=== PATIENT | female | born 1990 | race Caucasian/White ===

== ENCOUNTER 2024-01-31 22:26 | Inpatient (IN) ==
--- OUTSIDE RECORDS SUMMARY | 2024-01-31 22:31 | External Medical Summary | Summary of Care ---
Author Name Unknown Organization [facility] Address [address] [place] [address] Phone [phone] Care Team Providers Care Layer Out Name Role Phone Chuyita Villegas MD Primary Care Provid er Encounter Details Date Type Department Care Team ([facility] st Contact Info) Description 01/31/2024 Telephone Gynecology/Obstetrics [facility] [address] [place] [address] Rubia De La Cruz PA-C [address] [place] [address] Allergies No known active allergiesdocumented as of this encounter (statuses as of 01/31/2024) Medications LORazepam 0.5 MG Oral Tablet (Ativan)Indicati ons:GILMAR (generalized anxiety disorder),Modera te episode of recurrent major depressive disorder (HCC) Take 1 Tablet by mouth 3 times a day as needed for Anxiety. 15 Tablet 3 Active Additional Information Patient not taking.Reported on 01/16/2024 28-0.8 MG Oral Tablet Take by mouth. Active buPROPion HCl ER (XL) 150 MG Oral Tablet Extended Release 24 Hour (Wellbutrin XL)Indications:G AD (generalized anxiety disorder) Take 1 tablet by mouth every morning. 90 Tablet 1 4 Active Additional Information Patient not taking.Reported on 01/31/2024 FLUoxetine HCl 20 MG Oral Capsule (PROzac)Indicati ons:GILMAR (generalized anxiety disorder) Take 1 capsule by mouth once daily. 90 Capsule 1 4 Active Additional Information Patient taking differently: 40 mg, Reported on 01/31/2024 FLUoxetine HCl 10 MG Oral Capsule (PROzac)Indicati ons:GILMAR (generalized anxiety disorder),Modera te episode of recurrent major depressive disorder (HCC) Take 1 capsule by mouth once daily. Add to 20 mg capsule for 30 mg total daily dose. 90 Capsule 1 4 Active Additional Information Patient not taking.Reported on 01/16/2024 amLODIPine Besylate 5 MG Oral Tablet (Norvasc)Indicat ions:Polycystic kidney disease,HTN, goal below 130/80 Take 1 Tablet by mouth in the morning. 90 Tablet 1 4 Active Aspirin 81 MG Oral Capsule Take by mouth. Ac tive Triamcinolone Acetonide 0.1 % External Ointment (Aristocort)Chelly cations:Flexural eczema Apply topically to affected area twice daily. 15 g 4 4 Active Propranolol HCl ER 80 MG Oral Capsule Extended Release 24 Hour (Inderal LA)Indications:M aternal chronic hypertension in third trimester Take 1 Capsule by mouth in the morning. 90 Capsule 1 4 Active documented as of this encounter (statuses as of 01/31/2024) Active Problems Problem Noted Date Diagnosed Date GBS (group B Streptococcus c geo), +RV culture, currently 01/25/2024 Need for prophylactic vaccin ation and inoculation against respiratory syncytial virus (RSV) 12/26/2023 Overview (12/26/2023): Received RSV vaccine 12/26/2023 History of laminectomy 11/27/2023 Maternal chronic hypertension 07/19/2023 Overview (12/11/2023): Obtain baseline lab work ARIES (if not already done) with assessment of proteinuria (24-hour urine protein or lszbivc-rn-xpddjqxwpb ratio) and CBC, serum AST/ALT/creatinine. If patient has had hypertension for 10 years or more, obtain an EKG and eye exam (if not performed within the past year). Recommend initiation of aspirin (81mg) daily, from 13 weeks until delivery, to decrease the risk of superimposed preeclampsia. Daily home blood pressure monitoring, especially in the second half of the . It may be useful to have the patient validate their home device with their primary OB care provider's office. Patients with BP less than 140/90 maintained with antihypertensives should continue medication during . Initiate or adjust antihypertensive medication if BP is 140/90 or greater on at least two occasions at least 4 hours apart and refer patient back to Maternal- Medicine. Titrate medication to maintain blood pressure in a goal range 120-140/70-90. Maternal Medicine ultrasound for anatomy at 19-20 weeks. surveillance as follows: If being treated with anti-hypertensives: Maternal- Medicine ultrasound for growth every 4 weeks starting at 24-26 weeks surveillance weekly starting at 32 weeks gestation Delivery should be individualized based on blood pressure control and assessment of patient risk and is indicated as follows: For those with stable blood pressures not on anti-hypertensive medications: Between 38 0/7 and 39 6/7 weeks For those on anti-hypertensive medications: Between 37 0/7 and 39 6/7 weeks Currently stable on amlodipine 5 mg daily. Add 80 mg propranolol 12/11/23 with elevated BP - per nephrology Recommend bASA 81 mg beginning at 12-13 weeks if okay per Nephrology. BP Readings from Last 5 Encounters: 07/11/23 130/78 05/25/23 134/86 03/21/23 132/94 02/16/23 121/86 11/21/22 118/78 Baseline Preeclampsia Labs Lab Results Component Value Date/Time PLT 318 07/11/2023 11:33 AM CREATININE - [facility] 0.7 07/11/2023 11:33 AM AST - [facility] 14 07/11/2023 11:33 AM ALT - [facility] 11 07/11/2023 11:33 AM PROTEIN/ CREATININE RATIO, URINE - [facility] 200 (H) 07/11/2023 11:49 AM Assessment & Plan (01/31/2024 2:15 PM EST): BP Readings from Last 5 Encounters: 01/31/24 132/96 01/16/24 120/78 01/09/24 126/82 12/26/23 134/78 12/13/23 128/88 Please titrate medication to maintain goal BP < 140/90. Assessment & Plan (01/01/2024 9:36 AM EST): BP Readings from Last 5 Encounters: 12/26/23 134/78 12/13/23 128/88 12/11/23 136/98 11/27/23 134/88 11/06/23 126/84 Please titrate medication to maintain goal BP < 140/90. Assessment & Plan (12/06/2023 12:09 PM EDT): BP Readings from Last 5 Encounters: 11/27/23 134/88 11/06/23 126/84 10/09/23 132/80 09/07/23 134/82 08/08/23 124/78 Please titrate medication to maintain goal BP < 140/90. Assessment & Plan (11/07/2023 1:14 PM EDT): BP Readings from Last 5 Encounters: 11/06/23 126/84 10/09/23 132/80 09/07/23 134/82 08/08/23 124/78 07/11/23 130/78 Titrate medication to maintain goal BP < 140/90. Assessment & Plan (10/05/2023 9:15 AM EDT): I reviewed the ultrasound with her. The anatomy that was visualized appears unremarkable and the biometry is appropriate for the gestational age. The amniotic fluid volume is subjectively normal and the fetus is in the vertex presentation. Assessment & Plan (07/19/2023 2:35 PM EDT): Considerations: Women with chronic hypertension during are at significantly increased risk for morbidity. Signs and symptoms of superimposed pre-eclampsia were reviewed; instructed patient to contact primary OB care provider if these symptoms occur. Recommendations: Obtain baseline lab work ARIES (if not already done) with assessment of proteinuria (24-hour urine protein or pjmmarx-uo-bibwbfhrqh ratio) and CBC, serum AST/ALT/creatinine. If patient has had hypertension for 10 years or more, obtain an EKG and eye exam (if not performed within the past year). Recommend initiation of aspirin (81mg) daily, from 13 weeks until delivery, to decrease the risk of superimposed preeclampsia. Daily home blood pressure monitoring, especially in the second half of the . It may be useful to have the patient validate their home device with their primary OB care provider's office. Patients with BP less than 140/90 maintained with antihypertensives should continue medication during . Initiate or adjust antihypertensive medication if BP is 140/90 or greater on at least two occasions at least 4 hours apart and refer patient back to Maternal- Medicine. Titrate medication to maintain blood pressure in a goal range 120-140/70-90. Maternal Medicine ultrasound for anatomy at 19-20 weeks. surveillance as follows: If NOT being treated with anti-hypertensives: Maternal- Medicine ultrasound for growth between 28-30 weeks If being treated with anti-hypertensives: Maternal- Medicine ultrasound for growth every 4 weeks starting at 24-26 weeks surveillance weekly starting at 32 weeks gestation Delivery should be individualized based on blood pressure control and assessment of patient risk and is indicated as follows: For those with stable blood pressures not on anti-hypertensive medications: Between 38 0/7 and 39 6/7 weeks For those on anti-hypertensive medications: Between 37 0/7 and 39 6/7 weeks High-risk 07/19/2023 Rh negative status during 07/12/2023 Kidney disease in 07/11/2023 Overview (07/19/2023): Follows with Nephrology. Switched from losartan to amlodipine in February due to plans for . Kidney function stable. Patient had preconception counseling with [facility] licensed genetic counselor earlier this year. Declined additional genetic counseling at this time. Latest Reference Range & Units 02/16/23 14:56 07/11/23 11:33 Sodium 135 - 146 mmol/L 139 Potassium 3.5 - 5.1 mmol/L 4.0 Chloride 98 - 107 mmol/L 108 (H) CO2 22 - 32 mmol/L 25 BUN 6 - 20 mg/dL 19 11 Creatinine 0.5 - 1.0 mg/dL 0.9 0.7 Estimated Glomerular Filtration Rate >=60 mL/min >90 >90 Anion Gap 7 - 15 mmol/L 6 (L) Glucose 70 - 120 mg/dL 78 Calcium 8.4 - 10.2 mg/dL 8.6 Phosphorus 2.5 - 4.8 mg/dL 3.2 Protein 6.0 - 8.3 g/dL 6.2 Uric Acid 2.4 - 5.7 mg/dL 2.5 Assessment & Plan (07/19/2023 2:41 PM EDT): CONSIDERATIONS: Explained to patient that autosomal dominant polycystic kidney disease is the most frequent genetic renal disorder, affecting 1/400 to 02/999 persons. is generally uncomplicated when functional renal impairment is minimal and hypertension is absent. There is an increased incidence of hypertension in late and higher mortality compared with that in pregnancies of sisters unaffected by this autosomal dominant disease. Discussed that polycystic kidney disease is usually progressive in nature and prognosis worsens with worsening renal function. Reviewed that since this disease is autosomal dominant, there is a 50% chance that she disorder will be passed on to the baby, but that it is generally not seen until they reach adulthood. RECOMMENDATIONS: Recommend Maternal Medicine ultrasound for anatomy at 19-20 weeks and then for growth at 28-30 weeks gestation. Recommend obtaining baseline pre-eclamptic labwork (including a 24 hour urine protein and serum AST/ALT/creatinine) in early . Patient s primary OB provider can coordinate. Monitor closely for signs and symptoms of pre-eclampsia as there is an increased incidence for women with polycystic kidney disease. As brain aneurysm occurs more frequently for women with polycystic kidney disease, we recommend maternal MRI of head to evaluate for presence of aneurysms and, if present, then neurology consult for delivery recommendations. Patient s primary OB provider can coordinate. Anxiety during 07/11/2023 Overview (07/19/2023): Currently stable on Wellbutrin 150 mg daily and Prozac 30 mg daily. Reports depression only when anxiety is out of control; denies suicidal or homicidal ideation. Assessment & Plan (07/19/2023 2:09 PM EDT): ANXIETY AND DEPRESSION CONSIDERATIONS: Untreated maternal anxiety and depression may be associated with an increased risk of multiple poor obstetrical outcomes including miscarriages, low weight, and delivery. Women with a history of anxiety or depression are at risk for recurrence both during and/or the period. Studies of first-trimester SSRI exposure do not demonstrate consistent data to support an increased risk for structural malformations. Anti-anxiety or depression medications have been associated with transient effects (withdrawal syndrome). RECOMMENDATIONS: Mental illness can and should be treated during when the benefits of treatment outweigh potential risks. Referral to behavioral health services as clinically indicated. H/O laminectomy 07/11/2023 Overview (11/27/2023): Laminectomy in [place] in 2011. Will need anesthesia consult. 28 weeks, per anesthesia: Gail, Thank you for reaching out. I have reviewed patient Humberto's imaging of her [place] spine. The construct involves L4 to S1. There is the potential for Epidural placement above the construct at the level of L3/4 or 2/3. There is always the potential for difficulty with epidural placement given post surgical changes and scare formation. Thank you, Negro Assessment & Plan (07/19/2023 2:34 PM EDT): Recommend anesthesia consult in third trimester. Moderate episode of recurrent major depressive d isorder 05/25/2023 Polycystic kidney disease 01/13/2022 Flexural eczema 01/13/2022 Anxiety Medical marijuana use Overview (07/19/2023): Stopped with knowledge of . Assessment & Plan (07/19/2023 2:35 PM EDT): CONSIDERATIONS: Chemicals found in marijuana, such as tetrahydrocannabinol (THC), are distributed to the brain and fat and cross the placenta. THC also appears in breast milk. In utero exposure is associated with short and long-term morbidity. A positive screen result is reported to [facility]. RECOMMENDATIONS: Abstain from marijuana use in and while ; avoid secondhand exposure. Discontinue use of marijuana for medicinal purposes in favor of an alternative therapy for which there are better -specific safety data. Estimated Date of Delivery Comme nts Yes 02/19/2024 Based on last me nstrual period of 05/15/2023 (Exact Date) documented as of this encounter (statuses as of 01/31/2024) Resolved Problems Problem Noted Date Diagnosed Date Resolved Date Supervision of normal first , antepartum 07/11/2023 10/09/2023 documented as of this encounter (statuses as of 01/31/2024) Immunizations Name Administration Dates Next Due RSV Vac., Bivalent, Perfusion F, Pf,0.5 Ml (Abry svo) 12/26/2023 Seasonal Influenza, PF, 6 M & above, IM , (FluLaval or Fluzone) 01/13/2022 Seasonal Influenza, Trivalent, (IIV3), PF, (Fluz one) 11/06/2023 TDAP (age 10 and older)(Boostrix) 11/25/2018, TDAP, Age 7 and older, IM (Adacel) 11/27/2023 documented as of this encounter Social History Tobacco Use Types Packs/Day Years Used Date Smoking Tobacco: Never Smokeless Tobacco: Never Alcohol Use Standard Drinks/Week Comments Not Currently 4 (1 standard drink = 0.6 oz pur e alcohol) rare Hunger Vital Sign Answer Date Recorded Within the past 12 months, y ou worried that your food would run out before you got the money to buy more. Never true 09/25/19 24 Within the past 12 months, t he food you bought just didn't last and you didn't have money to get more. Never true 09/25/2023 [place] Depression Scale Answer Date Recorded [place] Depression Scale Total 5 07/11/2023 The thought of harming myself has occurred to me . Never 07/11/2023 Childcare Answer Date Recorded Do you feel overwhelmed with taking care of a child, family member or friend? No 09/25/2023 Does your family need help f inding childcare? (Household - for ages 0-17 years) Not on file 09/25/2023 Clothing Answer Date Recorded Have you been unable to get clothing when it was really needed? No 09/25/2023 Is your family able to get c lothes or diapers when needed? (Household - for ages 0-17 years) Not on file 09/25/2023 Personal Safety Answer Date Recorded Do you feel unsafe or have concerns for your saf ety? No 09/25/2023 Do you have concerns for you r family's safety? (Household - for ages 0-17 years) Not on file 09/25/2023 Utilities Answer Date Recorded Do you have trouble paying y our heating, water, or electric bill? No 09/25/2023 Is your family able to pay t he heat, water, or electric bill? (Household - for ages 0-17 years) Not on file 09/25/2023 Does your family have access to good internet? (Household - for ages 0-17 years) Not on file 09/25/2023 Employment Status Answer Date Recorded Are you unemployed or without regular income? No 09/25/2023 Does the household have a re gular source of income? (Household - for ages 0-17 years) Not on file 09/25/2023 Social Connections Answer Date Recorded How often do you feel lonely or isolated from th ose around you? Never 09/25/2023 Financial Resource Strain Answer Date R ecorded Do you have any trouble payi ng for your medications, or do you think you might in the future? No 09/25/2023 Does your family have troubl e paying for medicine? (Household - for ages 0-17 years) Not on file 09/25/2023 Transportation Needs Answer Date Record ed Do you have trouble getting a ride to medical visits or work? (Adult - for ages 18 years and over) Not on file 09/25/2023 Does your family have a hard time getting a ride to doctors visits? (Household - for ages 0-17 years) Not on file 09/25/2023 Has lack of transportation k ept you from medical appointments, meetings, work, or from getting things needed for daily living? Check all that apply. No 09/25/2023 Do you (or your family) have trouble finding or paying for a ride (transportation)? (Household - for ages 0-17 years) Not on file 09/25/2023 Housing Stability Answer Date Recorded Do you currently live in a s helter or have no steady place to sleep at night? No 09/25/2023 Do you think you are at risk of becoming homeless? (Adult - for ages 18 years and over) Not on file 09/25/2023 Does your family worry about paying for your home or becoming homeless? (Household - for ages 0-17 years) Not on file 0 09/25/2023 Are you homeless or worried that you might be in the future? No 09/25/2023 Are you (or your family) solis eless or worried that you might be in the future? (Household - for ages 0-17 years) Not on file Food Insecurity Answer Date Recorded Do you need food for this week? No 09/25/2023 Are you able to get enough f ood for your family? (Household - for ages 0-17 years) Not on file 09/25/2023 Does your family need food t his week? (Household - for ages 0-17 years) Not on file 09/25/2023 Do you always have enough fo od for your family? 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 No answer, LVM to return call. * Telephone Encounter - Rubia De La Cruz PA-C - 01/31/2024 3:51 PM EST TigerText sent to on-call provider, Dr. Chandler, for recommendations regarding patient's at-home blood pressure readings reported in MyG message. Per Dr. Chandler, recommending rest and hydration for the next 24 hours with BP check in the office tomorrow. If elevated, can re-evaluate at that time. Could we call her and relay recommendations as well as assist with scheduling BP check tomorrow? Also please have her bring her BP cuff with her tomorrow to calibrate with our machines. Please give ED precautions to include BP 160/100 or greater or if she would develop symptoms to include chest pain, RUQ pain, headaches, vision changes. Thanks! Rubia De La Cruz PA-C documented in this encounter Plan of Treatment Upcoming Encounters Date Type Department Care Team (Late st Contact Info) Description 02/05/2024 11:00 AM EST Office Visit Gynecology/Obstetrics [facility] [address] [place] [address] Gail Sparks CRNP [address] [place] [address] Jarad Non Stress Tests Shawn [address] [place] [address] 02/13/2024 2:30 PM EST Office Visit Gynecology/Obstetrics [facility]rades [address] [place] [address] Liliana Archer CRNP [address] [place] [address] Jarad Non Stress Tests Shawn [address] [place] [address] 05/26/2024 3:20 PM EDT [facility] [address] [place] [id number] Chuyita Villegas MD [address] [place] [address] Health Maintenance Due Date Last Done Comments Depression Monitoring 2002 HPV (Gardasil) Vaccine (2 - 3-dose series) 07/23/2008 06/25/2008 COVID-19 Vaccine ( season) 2023 02/08/2021, 05/05/2020, 04/07/2020 GFR 12/10/2024 12/11/2023, 11/06, 07/11/2023, Additional history exists Pap Smear 03/21/2026 03/21/2023 Cervical Cancer Screening 03/21/2028 HPV/Co-Test 03/21/2028 03/21/2023 DTap/Tdap Vaccines (9 - Td or Tdap) 11/26/2033 11/27/2023, 11/25/2018, 06/25/2008, Additional history exists Hepatitis B Vaccine Completed 03/13/2000, 09/09/1999, 07/21/1999 MENINGOCOCCAL (MENACTRA/MENVEO) Completed 08/12/2008 Influenza Vaccine (FLU shot) Completed 02/2023, 01/13/2022, 11/09/2019, Additional history exists Pneumococcal Vaccine: Pediatrics (0 to 5 Years) and At-Risk Patients (6 to 18 Years and 19+ Years) Aged Out No longer eligib le based on patient's age to complete this topic documented as of this encounter Medical Devices Not on filedocumented as of this encounter Care Teams Layer Out Relationship Specialty Start Date End Date Chuyita Villegas MD PCP - General Family Medicine 01/11/22 documented as of this encounter
--- OUTSIDE RECORDS SUMMARY | 2024-01-31 22:31 | External Medical Summary | Summary of Care ---
Author Name Unknown Organization [facility] Address [address] [place] [address] Phone [phone] Care Team Providers Care Soil Conservation Aide Name Role Phone Chuyita Villegas MD Primary Care Provid er Encounter Details Date Type Department Care Team ([facility] st Contact Info) Description 01/31/2024 Telephone Gynecology/Obstetrics [facility] [address] [place] [address] Rubia De La Cruz PA-C [address] [place] [address] Allergies No known active allergiesdocumented as of [...] assessment of proteinuria (24-hour urine protein or ppbivno-pd-dhsemxstqc ratio) and CBC, serum AST/ALT/creatinine. If patient [...] assessment of proteinuria (24-hour urine protein or zshjgzd-bt-xjbzhbcoed ratio) and CBC, serum AST/ALT/creatinine. If patient [...] function stable. Patient had preconception counseling with [facility] licensed genetic counselor earlier this year. [...] H/O laminectomy 07/11/2023 Overview (11/27/2023): Laminectomy in [place] in 2011. Will need anesthesia consult. 28 [...] money to get more. 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 Not on akshat e Not on file documented as of this encounter Miscellaneous Notes * Telephone Encounter - Rubia De La [...] 02/05/2024 11:00 AM EST Office Visit Gynecology/Obstetrics [facility] [address] [place] [address] Gail Sparks CRNP [address] [place] [address] Abraham, Non Stress Tests [facility] [address] [place] [address] 02/13/2024 2:30 PM EST Office Visit Gynecology/Obstetrics [facility] [address] [place] [address] Liliana Archer CRNP [address] [place] [address] Abraham, Non Stress Tests [facility] [address] [place] [address] 05/26/2024 3:20 PM EDT Office Visit [facility] [address] [place] [id number] Chuyita Villegas MD [address] [place] [address] Health Maintenance Due Date Last Done Comments [...] filedocumented as of this encounter Care Teams Soil Conservation Aide Relationship Specialty Start Date End Date Chuyita Villegas MD PCP - General Family Medicine 01/11/22 documented as of this encounter
--- OUTSIDE RECORDS SUMMARY | 2024-01-31 22:31 | External Medical Summary | Summary of Care ---
Author Name Unknown Organization [facility] Address [address] [address] Phone [phone] Care Team Providers Care Residential Air Sealing Technician Name Role Phone Chuyita Villegas MD Primary Care Provid er Encounter Details Date Type Department Care Team ([facility] st Contact Info) Description 01/31/2024 Telephone Gynecology/Obstetrics [facility] [address] [place] [address] Rubia De La Cruz PA-C [address] [place] [address] Allergies No known active allergiesdocumented as of [...] assessment of proteinuria (24-hour urine protein or qvxptoe-oz-hpkcysvxyp ratio) and CBC, serum AST/ALT/creatinine. If patient [...] assessment of proteinuria (24-hour urine protein or kyyuqpf-mx-cetsfzxgxz ratio) and CBC, serum AST/ALT/creatinine. If patient [...] function stable. Patient had preconception counseling with [facility] licensed genetic counselor earlier this year. Declined [...] H/O laminectomy 07/11/2023 Overview (11/27/2023): Laminectomy in [place] in 2011. Will need anesthesia consult. 28 [...] money to get more. 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 Not on file documented as of this encounter Plan of Treatment Upcoming Encounters Date Type Department Care Team (Late st Contact Info) Description 02/05/2024 11:00 AM EST Office Visit Gynecology/Obstetrics Garrett Abraham [address] [place] [address] Gail Sparks CRNP [address] [place] [address] Jarad Non Stress Tests Shawn [address] [place] [address] 02/13/2024 2:30 PM EST Office Visit Gynecology/Obstetrics Sean'suly Abraham [address] [place] [address] Liliana Archer CRNP [address] [place] [address] Abraham, Non Stress Tests Shawn [address] [place] [address] 05/26/2024 3:20 PM EDT [facility] [address] [address] [place] [phone] Chuyita Villegas MD [address] [place] [address] Health Maintenance Due Date Last Done Comments [...] filedocumented as of this encounter Care Teams Residential Air Sealing Technician Relationship Specialty Start Date End Date Chuyita Villegas MD PCP - General Family Medicine 01/11/22 documented as of this encounter
--- OUTSIDE RECORDS SUMMARY | 2024-01-31 22:31 | External Medical Summary | Summary of Care ---
Author Name Unknown Organization [facility] Address [address] [facility] [address] Phone [phone] Care Team Providers Care Visitor Services Specialist Name Role Phone Chuyita Villegas MD Primary Care Provid er Encounter Details Date Type Department Care Team ([facility] st Contact Info) Description 01/31/2024 Telephone Gynecology/Obstetrics [facility] [address] [place] [address] Rubia De La Cruz PA-C [address] [place] [address] Allergies No known active allergiesdocumented as of [...] assessment of proteinuria (24-hour urine protein or kunfsgp-od-deldwuuguo ratio) and CBC, serum AST/ALT/creatinine. If patient [...] assessment of proteinuria (24-hour urine protein or rkhlaok-dm-dpxtfigvgm ratio) and CBC, serum AST/ALT/creatinine. If patient [...] function stable. Patient had preconception counseling with [facility] licensed genetic counselor earlier this year. Declined [...] H/O laminectomy 07/11/2023 Overview (11/27/2023): Laminectomy in [place] in 2011. Will need anesthesia consult. 28 [...] money to get more. 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 She is aware and agreeable. She will monitor overnight and come in am for bp check.She is aware of signs to watch for. * Telephone Encounter - Luisa Gusman RN [...] Care Team (Late st Contact Info) Description 02/01/2024 11:00 AM EST Immunization/Inje ction Gynecology/Obstetrics Garrett Abraham [address] [place] [address] Gw, Nurse Obgyn Injection [address] [place] [address] 02/05/2024 11:00 AM EST Office Visit Gynecology/Obstetrics Garrett Abraham [address] [place] [address] Gail Sparks CRNP [address] [place] [address] Jarad Non Stress Tests Shawn [address] [place] [address] 02/13/2024 2:30 PM EST Office Visit Gynecology/Obstetrics Garrett Abraham [address] [place] [address] Liliana Archer CRNP [address] [place] [address] Jarad Non Stress Tests Shawn [address] [place] [address] 05/26/2024 3:20 PM EDT Office Visit [facility] Le[address]ieves [address] [place] [phone] Chuyita Villegas MD [address] [place] [address] Health Maintenance Due Date Last Done Comments Depression Monitoring 2002 HPV (Gardasil) Vaccine (2 - 3-dose series) 07/23/2008 06/25/2008 COVID-19 Vaccine (2023- season) 2023 02/08/2021, 05/05/2020, 04/07/2020 GFR 12/10/2024 [...] filedocumented as of this encounter Care Teams Visitor Services Specialist Relationship Specialty Start Date End Date Chuyita Villegas MD PCP - General Family Medicine 01/11/22 documented as of this encounter
--- OUTSIDE RECORDS SUMMARY | 2024-01-31 22:31 | External Medical Summary | Summary of Care ---
Author Name Unknown Organization [facility] Address [address] [facility] [place] [address] Phone [phone] Care Team Providers Care Crew Boss Name Role Phone Chuyita Villegas MD Primary Care Provid er Encounter Details Date Type Department Care Team ([facility] st Contact Info) Description 01/31/2024 Telephone Gynecology/Obstetrics [facility] [address] [place] [address] Rubia De La Cruz PA-C [address] [place] [address] Allergies No known active allergiesdocumented as of [...] assessment of proteinuria (24-hour urine protein or msullun-qu-lpjcnxvyve ratio) and CBC, serum AST/ALT/creatinine. If patient [...] assessment of proteinuria (24-hour urine protein or jzwmaii-hy-sksczaeryu ratio) and CBC, serum AST/ALT/creatinine. If patient [...] function stable. Patient had preconception counseling with [facility] licensed genetic counselor earlier this year. [...] H/O laminectomy 07/11/2023 Overview (11/27/2023): Laminectomy in [place] in 2011. Will need anesthesia consult. 28 [...] money to get more. 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 Not on file documented as of this encounter Plan of Treatment Upcoming Encounters Date Type Department Care Team (Late st Contact Info) Description 02/05/2024 11:00 AM EST Office Visit Gynecology/Obstetrics Garrett Abraham [address] [place] [address] Gail Sparks CRNP [address] [place] [address] Jarad Non Stress Tests Shawn [address] [place] [address] 02/13/2024 2:30 PM EST Office Visit Gynecology/Obstetrics Sean'suly Abraham [address] [place] [address] Liliana Archer CRNP [address] [place] [address] Abraham, Non Stress Tests Shawn [address] [place] [address] 05/26/2024 3:20 PM EDT [facility] [address] [place] [phone] Chuyita Villegas MD [address] [place] [address] Health Maintenance Due Date Last Done Comments [...] filedocumented as of this encounter Care Teams Crew Boss Relationship Specialty Start Date End Date Chuyita Villegas MD PCP - General Family Medicine 01/11/22 documented as of this encounter
--- OUTSIDE RECORDS SUMMARY | 2024-01-31 22:32 | External Medical Summary | Summary of Care ---
Author Name Unknown Organization [facility] Address [address] [place] [address] Phone [phone] Care Team Providers Care Lap Grinder Name Role Phone Chuyita Villegas MD Primary Care Provid er Reason for Visit * Reason Comments Return Visit Non Stress Test Encounter Details Date Type Department Care Team ([facility] st Contact Info) Description 01/16/2024 1:45 PM EST Office Visit Gynecology/Obstetric s Sean'suly Abraham [address] [facility] [place] [address] Gail Sparks CRNP [address] [facility] [place] [address] Jarad Non Stress Tests Shawn [address] [facility] [place] [address] High-risk in third trimester*; Medical marijuana use; 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 trimester; Anxiety during ; H/O laminectomy; Rh negative status during in third trimester; Maternal chronic hypertension in third trimester; Need for prophylactic vaccination and inoculation against respiratory syncytial virus (RSV) Allergies No known active allergiesdocumented as of this encounter (statuses as of 01/16/2024) Medications LORazepam 0.5 MG Oral Tablet (Ativan)Indicati [...] every morning. 90 Tablet 1 4 Active FLUoxetine HCl 20 MG Oral Capsule (PROzac)Indicati ons:GILMAR (generalized anxiety disorder) Take 1 capsule by mouth once daily. 90 Capsule 1 4 Active Additional Information Patient taking differently: 40 mg, Reported on 01/16/2024 FLUoxetine HCl 10 MG Oral Capsule (PROzac)Indicati [...] as of this encounter (statuses as of 01/16/2024) Active Problems Problem Noted Date Diagnosed Date Need for prophylactic vaccin ation and inoculation against respiratory syncytial virus (RSV) 12/26/2023 Overview (12/26/2023): Received RSV vaccine 12/26/2023 History of laminectomy 11/27/2023 Maternal chronic hypertension 07/19/2023 Overview (12/11/2023): Obtain baseline lab work ARIES (if not already done) with assessment of proteinuria (24-hour urine protein or qtegdcs-vn-ksztalzzsh ratio) and CBC, serum AST/ALT/creatinine. If patient [...] (H) 07/11/2023 11:49 AM Assessment & Plan (01/01/2024 9:36 AM EST): [...] assessment of proteinuria (24-hour urine protein or tsqkiiv-tf-vlvgpyinth ratio) and CBC, serum AST/ALT/creatinine. If patient [...] function stable. Patient had preconception counseling with [facility] licensed genetic counselor earlier this year. [...] H/O laminectomy 07/11/2023 Overview (11/27/2023): Laminectomy in [place] in 2011. Will need anesthesia consult. 28 [...] as of this encounter (statuses as of 01/16/2024) Resolved Problems Problem Noted Date Diagnosed Date Resolved Date Supervision of normal first , antepartum 07/11/2023 10/09/2023 documented as of this encounter (statuses as of 01/16/2024) Immunizations Name Administration Dates Next Due RSV Vac., Bivalent, Perfusion F, Pf,0.5 Ml (Abrgiovanni svo) 12/26/2023 Seasonal Influenza, PF, 6 M [...] money to get more. 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1 weeks gestation for indication of chronic hypertension heart baseline: 125 bpm Variability: Moderate Decelerations: absent Accelerations: present Contractions: None NST start time: 1425 NST stop time: 1450 NST strip reviewed, interpreted, and approved by OB provider, ROBERTO Muñiz . NST strip stored in clinic storage file documented in this encounter Plan of Treatment Upcoming Encounters Date Type Department Care Team (Late st Contact Info) Description 01/23/2024 2:30 PM EST Office Visit Gynecology/Obstetrics Garrett Andrades [address] [place] [address] Liliana Archer CRNP [address] [place] [address] Jarad Non Stress Tests Shawn [address] [place] [address] 01/31/2024 8:00 AM EST Imaging [facility], Shawn Andrades [address] [place] [address] 01/31/2024 9:15 AM EST Office Visit Gynecology/Obstetrics Garrett Andrades [address] [place] [address] Rubia De La Cruz PA-C [address] [place] [address] 02/05/2024 11:00 AM EST Office Visit Gynecology/Obstetrics Garrett Andrades [address] [place] [address] Gail Sparks CRNP [address] [place] [address] Jarad Non Stress Tests Shawn [address] [place] [address] 02/13/2024 2:30 PM EST Office Visit Gynecology/Obstetrics Sean's Abraham [address] [place] [address] Liliana Archer CRNP [address] [place] [address] Abraham, Non Stress Tests Shawn [address] [place] [address] 05/26/2024 3:20 PM EDT Office [facility] [address] [facility] [address] [place] [phone] Chuyita Villegas MD [address] [place] [address] Health Maintenance Due Date Last Done Comments [...] 5 Years) and At-Risk Patients (6 to 64 Years) Aged Out No longer eligible based on patient's age to complete this topic documented as of this encounter Medical Devices Not on filedocumented as of this encounter Visit Diagnoses Diagnosis Polycystic kidney disease of fetus affecting management of mother in moss , antepartum- Primary H/O laminectomy Other postprocedural status Anxiety during , supervision, high-risk, first trimester Maternal chronic hypertension, first trimester Medical marijuana use Encounter for long-term (current) use of other medications Polycystic kidney disease- Primary Polycystic kidney, unspecified type Rh negative status during in second trimester Maternal chronic hypertension, first trimester Maternal chronic hypertension, first trimester- Primary Renal disease during in second trimester Ultrasound for screening for growth restriction screening for growth retardation using ultrasonics 25 weeks gestation of state, incidental Maternal chronic hypertension, first trimester- Primary 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 trimester Ultrasound for screening for growth restriction screening for growth retardation using ultrasonics 29 weeks gestation of state, incidental Maternal chronic hypertension in third trimester- Primary 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 trimester 33 weeks gestation of state, incidental High-risk in third trimester- Primary Medical marijuana use Encounter for long-term (current) use of other medications 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 trimester Anxiety during H/O laminectomy Other postprocedural status Rh negative status during in third trimester Maternal chronic hypertension in third trimester Need for prophylactic vaccination and inoculation against respiratory syncytial virus (RSV) documented in this encounter Care Teams Lap Grinder Relationship Specialty Start Date End Date Chuyita Villegas MD [address] [place] [address] PCP - General Family Medicine 01/11/22 documented as of this encounter
--- OUTSIDE RECORDS SUMMARY | 2024-01-31 22:32 | External Medical Summary | Summary of Care ---
Author Name Unknown Organization [facility] Address [address] [place] [address] Phone [phone] Care Team Providers Care Cnc Field Service Engineer Name Role Phone Cuhyita Villegas MD Primary Care Provid er Reason for Visit * Reason Comments Return Visit Encounter Details Date Type Department Care Team (Latest Contact Info) Description 01/31/2024 9:15 AM EST [facility] [address] [place] [address] Rubia De La Cruz PA-C [address] [place] [address] High-risk in third trimester*; Chronic hypertension during , antepartum; Medical marijuana use; 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 trimester; Anxiety during ; H/O laminectomy; Rh negative status during in third trimester; Maternal chronic hypertension in third trimester; Need for prophylactic vaccination and inoculation against respiratory syncytial virus (RSV); GBS (group B Streptococcus carrier), +RV culture, currently Allergies No known active allergiesdocumented as of this encounter (statuses as of 01/31/2024) Medications LORazepam 0.5 MG Oral Tablet (Ativan)Indicati ons:GILMAR (generalized anxiety disorder),Modera te episode of recurrent major depressive disorder (HCC) Take 1 Tablet by mouth 3 times a day as needed for Anxiety. 15 Tablet Active Additional Information Patient not taking.Reported on [...] Diagnosed Date GBS (group B Streptococcus c arrier), +RV culture, currently 01/25/2024 Need for prophylactic vaccin ation and inoculation against respiratory syncytial virus (RSV) 12/26/2023 Overview (12/26/2023): Received RSV vaccine 12/26/2023 History of laminectomy 11/27/2023 Maternal chronic hypertension 07/19/2023 Overview (12/11/2023): Obtain baseline lab work ARIES (if not already done) with assessment of proteinuria (24-hour urine protein or llgpoch-ju-qjxqdjkvum ratio) and CBC, serum AST/ALT/creatinine. If patient [...] assessment of proteinuria (24-hour urine protein or exeavwh-zj-zitwhczrnq ratio) and CBC, serum AST/ALT/creatinine. If patient [...] function stable. Patient had preconception counseling with [facility] licensed genetic counselor earlier this year. [...] H/O laminectomy 07/11/2023 Overview (11/27/2023): Laminectomy in [place] in 2011. Will need anesthesia consult. 28 [...] money to get more. 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 Not on akshat e Not on file documented as of this encounter Last Filed Vital Signs Vital Sign Reading Time Taken Comments Blood Pressure 132/96 01/31/2024 8:46 AM EST Pulse - - Temperature - - Respiratory Rate - - Oxygen Saturation - - Inhaled Oxygen Concentration - - Weight 86.6 kg (191 lb) 01/31/2024 8:46 AM EST Height - - Body Mass Index 31.78 01/23/2024 2:35 PM EST documented in this encounter Progress Notes * Rubia De La Cruz PA-C - 01/31/2024 8:49 AM EST Gail Paul is a 33 year old female here for her routine OB appointment at 37w2d Her Estimated Date of Delivery: 02/19/24 Completed BPP with MFM prior to appointment. REVIEW OF SYSTEMS She affirms movement. Denies vaginal bleeding, LOF, chest pain, RUQ pain, YUNG, vision changes. + irregular BH contractions and cramping. + intermittent headaches not new/worsening. PHYSICAL EXAM Filed Vitals: 01/31/24 0846 BP: 132/96 Weight: 86.6 kg (191 lb) Fundal height 36 cm Position cephalic ASSESSMENT/PLAN High-risk in third trimester (Primary) Chronic hypertension during , antepartum Medical marijuana use 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 trimester Anxiety during H/O laminectomy Rh negative status during in third trimester Maternal chronic hypertension in third trimester Need for prophylactic vaccination and inoculation against respiratory syncytial virus (RSV) GBS (group B Streptococcus carrier), +RV culture, currently Supervision of - labor precautions and kick counts reviewed - encouraged light stretching/belly band for pelvic pain in . - pre eclampsia warning signs given. - IOL 02/11/2023 scheduled at 39w RTO for scheduled ZARA/NST appointments. Rubia De La Cruz PA-C 01/31/2024 documented in this encounter Nursing Notes * Yeni Khalil LPN - 01/31/2024 8:48 AM EST 37w2d Denies vaginal bleeding/rom + movement Some contractions but nothing consistent BPP today with MFM 09/12 documented in this encounter Plan of Treatment Upcoming Encounters Date Type Department Care Team (Late st Contact Info) Description 02/05/2024 11:00 AM EST Office Visit Gynecology/Obstetrics Garrett Abraham [address] [place] [address] Gail Sparks CRNP [address] [place] [address] Gail Abraham Stress Tests Shawn [address] [place] [address] 02/13/2024 2:30 PM EST Office Visit Gynecology/Obstetrics Garrett Abraham [address] [place] [address] Liliana Archer CRNP [address] [place] [address] Abraham, Gail Stress Tests Shawn [address] [place] [address] 05/26/2024 3:20 PM EDT Office Visit [facility] [place] [facility] [address] [address] [facility] [place] [phone] Chuyita Villegas MD [address] [facility] [address] [place] [address] Health Maintenance Due Date Last Done Comments [...] state, incidental High-risk in third trimester- Primary Chronic hypertension during , antepartum Medical marijuana use Encounter for long-term (current) use of other medications 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 trimester Anxiety during H/O laminectomy Other postprocedural status Rh negative status during in third trimester Maternal chronic hypertension in third trimester Need for prophylactic vaccination and inoculation against respiratory syncytial virus (RSV) GBS (group B Streptococcus carrier), +RV culture, currently Supervision of other high-risk documented in this encounter Care Teams Cnc Field Service Engineer Relationship Specialty Start Date End Date Chuyita Villegas MD PCP - General Family Medicine 01/11/22 documented as of this encounter
--- OUTSIDE RECORDS SUMMARY | 2024-01-31 22:32 | External Medical Summary | Summary of Care ---
Author Name Unknown Organization [facility] Address [address] [place] [address] Phone [phone] Care Team Providers Care Levi Maker Name Role Phone Chuyita Villegas MD Primary Care Provid er Reason for Visit * Reason Onset Date Comments Blood Pressure Check 12/13/2023 Encounter Details Date Type Department Care Team ([facility] st Contact Info) Description 12/13/2023 Telephone Gynecology/Obstetrics [facility] [address] [facility] [place] [address] Gail Sparks CRNP [address] [place] [address] Blood Pressure Check Allergies No known active allergiesdocumented as of this encounter (statuses as of 12/13/2023) Medications Medication Sig Dispensed Refills Start Date End Date Status LORazepam 0.5 MG Oral Tablet (Ativan)Indications :GILMAR (generalized anxiety disorder),Moderate episode of recurrent major depressive disorder (HCC) Take 1 Tablet by mouth 3 times a day as needed for Anxiety. 15 Tablet 11/21/2022 Active Additional Information Patient not taking.Reported on 07/09/2023 28-0.8 MG Oral Tablet Take by mouth. Active buPROPion HCl ER (XL) 150 MG Oral Tablet Extended Release 24 Hour (Wellbutrin XL)Indications:GILMAR (generalized anxiety disorder) Take 1 tablet by mouth every morning. 90 Tablet 1 10/15/2023 Active FLUoxetine HCl 20 MG Oral Capsule (PROzac)Indications :GILMAR (generalized anxiety disorder) Take 1 capsule by mouth once daily. 90 Capsule 1 10/15/2023 Active Additional Information Patient taking differently: 40 mg, Reported on 12/11/2023 FLUoxetine HCl 10 MG Oral Capsule (PROzac)Indications :GILMAR (generalized anxiety disorder),Moderate episode of recurrent major depressive disorder (HCC) Take 1 capsule by mouth once daily. Add to 20 mg capsule for 30 mg total daily dose. 90 Capsule 1 10/15/2023 Active Additional Information Patient not taking.Reported on 12/11/2023 amLODIPine Besylate 5 MG Oral Tablet (Norvasc)Indication s:Polycystic kidney disease,HTN, goal below 130/80 Take 1 Tablet by mouth in the morning. 90 Tablet 1 10/22/2023 Active Aspirin 81 MG Oral Capsule Take by mouth. Active Triamcinolone Acetonide 0.1 % External Ointment (Aristocort)Indicat ions:Flexural eczema Apply topically to affected area twice daily. 15 g 4 12/03/2023 Active Propranolol HCl ER 80 MG Oral Capsule Extended Release 24 Hour (Inderal LA)Indications:Mate rnal chronic hypertension in third trimester Take 1 Capsule by mouth in the morning. 90 Capsule 1 12/11/2023 Active documented as of this encounter (statuses as of 12/13/2023) Active Problems Problem Noted Date Diagnosed Date History of laminectomy 11/27/2023 Maternal chronic hypertension 07/19/2023 Overview: Obtain baseline lab work ARIES (if not already done) with assessment of proteinuria (24-hour urine protein or cjmsyhf-ji-gylikjbmhk ratio) and CBC, serum AST/ALT/creatinine. If patient [...] - [facility] 200 (H) 07/11/2023 11:49 AM Last Assessment & Plan: BP Readings from Last 5 Encounters: 11/27/23 134/88 11/06/23 126/84 10/09/23 132/80 09/07/23 134/82 08/08/23 124/78 Please titrate medication to maintain goal BP < 140/90. High-risk 07/19/2023 Rh negative status during 07/12/2023 Kidney disease in 07/11/2023 Overview: Follows with Nephrology. Switched from losartan to amlodipine in February due to plans for . Kidney function stable. Patient had preconception counseling with [facility] licensed genetic counselor earlier this year. [...] Uric Acid 2.4 - 5.7 mg/dL 2.5 Last Assessment & Plan: CONSIDERATIONS: Explained to patient that autosomal dominant [...] OB provider can coordinate. Anxiety during 07/11/2023 Overview: Currently stable on Wellbutrin 150 mg daily and Prozac 30 mg daily. Reports depression only when anxiety is out of control; denies suicidal or homicidal ideation. Last Assessment & Plan: ANXIETY AND DEPRESSION CONSIDERATIONS: Untreated maternal anxiety [...] services as clinically indicated. H/O laminectomy 07/11/2023 Overview: Laminectomy in [place] in 2011. Will need anesthesia consult. 28 [...] changes and scare formation. Thank you, Negro Last Assessment & Plan: Recommend anesthesia consult in third trimester. Moderate episode of recurrent major depressive d isorder 05/25/2023 Polycystic kidney disease 01/13/2022 Flexural eczema 01/13/2022 Anxiety Medical marijuana use Overview: Stopped with knowledge of . Last Assessment & Plan: CONSIDERATIONS: Chemicals found in marijuana, such as [...] as of this encounter (statuses as of 12/13/2023) Resolved Problems Problem Noted Date Diagnosed Date Resolved Date Supervision of normal first , antepartum 07/11/2023 10/09/2023 documented as of this encounter (statuses as of 12/13/2023) Immunizations Name Administration Dates Next Due Seasonal Influenza, PF, 6 M & above, [...] money to get more. Never true 09/25/2023 [place] Depression Scale Answer Date Recorded [place] Depression Scale Total 5 07/11/2023 The thought [...] No 09/25/2023 Does the household have a presbyterian kaseman hospitallar source of income? (Household - for ages [...] Assigned at Female 05/02/2022 3:53 PM EDT Gender Identity Female 05/02/2022 3:53 PM EDT Sexual Orientation Bisexual 05/02/2022 3: 53 PM EDT Job Start Date Occupation Industry Not on file Not on file Not on file documented as of this encounter Miscellaneous Notes * Telephone Encounter - Garcia Diaz MD - 12/13/2023 9:58 AM EST These are normal Routine f/u per recommendations Thanks * Telephone Encounter - Genevieve Dunlap CMA - 12/13/2023 9:50 AM EST Patient present in office today for BP check. BP was elevated 136/98 at appointment yesterday with Gail Sparks. BP in office today was 128/88. Urine dip was WNL. Please review and advise, thank you! documented in this encounter Plan of Treatment Upcoming Encounters Date Type Department Care Team (Late st Contact Info) Description 12/26/2023 9:15 AM EST Office Visit Gynecology/Obstetrics [address] [place] [address] Liliana Archer CRNP [address] [place] [address] Abraham, Non Stress Tests Shawn [address] [place] [address] 01/01/2024 8:45 AM EST [facility] Crystal Cee [address] [place] [address] [address] [place] [address] 01/02/2024 2:30 PM EST Office Visit Gynecology/Obstetrics [facility] [address] [place] [address] Rudi Landry MD [address] [place] [address] Abraham, Non Stress Tests Shawn [address] [place] [address] 01/09/2024 2:30 PM EST Office Visit Gynecology/Obstetrics [facility] [address] [place] [address] Liliana Archer CRNP [address] [place] [address] Abraham, Non Stress Tests Shawn [address] [place] [address] 01/16/2024 2:30 PM EST Office Visit Gynecology/Obstetrics [facility] [address] [place] [address] Liliana Archer CRNP [address] [place] [address] Abraham, Non Stress Tests Shawn [address] [place] [address] 01/23/2024 2:30 PM EST Office Visit Gynecology/Obstetrics [facility] [address] [place] [address] Liliana Archer CRNP [address] [place] [address] Abraham, Non Stress Tests Shawn [address] [place] [address] 01/31/2024 8:00 AM EST Imaging [facility], Shawn Abraham [address] [place] [address] 01/31/2024 9:15 AM EST Office Visit Gynecology/Obstetrics [facility] [address] [place] [address] Rubia De La Cruz PA-C [address] [place] [address] 02/05/2024 11:00 AM EST Office Visit Gynecology/Obstetrics [facility] [address] [place] [address] Gail Sparks CRNP [address] [place] [address] Abraham, Non Stress Tests Shawn [address] [place] [address] 02/13/2024 2:30 PM EST Office Visit Gynecology/Obstetrics [facility] [address] [place] [address] Liliana Archer CRNP [address] [place] [address] Abraham, Non Stress Tests Shawn [address] [place] [address] 05/26/2024 3:20 PM EDT Office Visit [facility] [address] [address] Chuyita Villegas MD [address] [place] [address] Health Maintenance Due Date Last Done Comments [...] filedocumented as of this encounter Care Teams Levi Maker Relationship Specialty Start Date End Date Chuyita Villegas MD [address] [place] [address] PCP - General Family Medicine 01/11/22 documented as of this encounter
--- OUTSIDE RECORDS SUMMARY | 2024-01-31 22:32 | External Medical Summary | Summary of Care ---
Author Name Unknown Organization [facility] Address [address] [place] [address] Phone [phone] Care Team Providers Care Save All Operator Name Role Phone Chuyita Villegas MD Primary Care Provid er Reason for Visit * Reason Comments Return Visit Non Stress Test Encounter Details Date Type Department Care Team ([facility] st Contact Info) Description 01/09/2024 2:30 PM EST Office Visit Gynecology/Obstetric s [facility] [address] [place] [address] Liliana Archer CRNP [address] [place] [address] Jarad Non Stress Tests Shawn [address] [facility] [place] [address] High-risk in third trimester*; Medical marijuana use; 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 trimester; Anxiety during ; H/O laminectomy; Rh negative status during in third trimester; Maternal chronic hypertension in third trimester; Need for prophylactic vaccination and inoculation against respiratory syncytial virus (RSV) Allergies No known active allergiesdocumented as of this encounter (statuses as of 01/09/2024) Medications LORazepam 0.5 MG Oral Tablet (Ativan)Indicati ons:GILMAR (generalized anxiety disorder),Modera te episode of recurrent major depressive disorder (HCC) Take 1 Tablet by mouth 3 times a day as needed for Anxiety. 15 Tablet 3 Active Additional Information Patient not taking.Reported on 01/09/2024 28-0.8 MG Oral Tablet Take by mouth. [...] Patient taking differently: 40 mg, Reported on 01/09/2024 FLUoxetine HCl 10 MG Oral Capsule (PROzac)Indicati ons:GILMAR (generalized anxiety disorder),Modera te episode of recurrent major depressive disorder (HCC) Take 1 capsule by mouth once daily. Add to 20 mg capsule for 30 mg total daily dose. 90 Capsule 1 4 Active Additional Information Patient not taking.Reported on 01/09/2024 amLODIPine Besylate 5 MG Oral Tablet (Norvasc)Indicat [...] as of this encounter (statuses as of 01/09/2024) Active Problems Problem Noted Date Diagnosed Date Need for prophylactic vaccin ation and inoculation against respiratory syncytial virus (RSV) 12/26/2023 Overview (12/26/2023): Received RSV vaccine 12/26/2023 History of laminectomy 11/27/2023 Maternal chronic hypertension 07/19/2023 Overview (12/11/2023): Obtain baseline lab work ARIES (if not already done) with assessment of proteinuria (24-hour urine protein or xvalcic-rx-wwxwsfoxmq ratio) and CBC, serum AST/ALT/creatinine. If patient [...] assessment of proteinuria (24-hour urine protein or nocnlhx-fw-hykvrckoeo ratio) and CBC, serum AST/ALT/creatinine. If patient [...] function stable. Patient had preconception counseling with [facility] licensed genetic counselor earlier this year. [...] H/O laminectomy 07/11/2023 Overview (11/27/2023): Laminectomy in [place] in 2011. Will need anesthesia consult. 28 [...] as of this encounter (statuses as of 01/09/2024) Resolved Problems Problem Noted Date Diagnosed Date Resolved Date Supervision of normal first , antepartum 07/11/2023 10/09/2023 documented as of this encounter (statuses as of 01/09/2024) Immunizations Name Administration Dates Next Due RSV Vac., Bivalent, Perfusion F, Pf,0.5 Ml ([place]) 12/26/2023 Seasonal Influenza, PF, 6 M & [...] money to get more. 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 Baby is active. No bleeding or LOF. Had MFM appt last week. Discussed delivery between 37w-39.6w. ASSESSMENT assessment with Non-stress Test completed on 01/09/2024 at 34.1weeks gestation for indication of chronic hypertension heart baseline: 120 bpm Variability: Moderate Decelerations: absent Accelerations: present Contractions: None NST start time: 1547 NST stop time: 1610 NST strip reviewed, interpreted, and approved by OB provider, ROBERTO Nuñez . NST strip stored in clinic storage file documented in this encounter Plan of Treatment Upcoming Encounters Date Type Department Care Team (Late st Contact Info) Description 01/16/2024 2:30 PM EST Office Visit Gynecology/Obstetrics [facility] [address] [place] [address] Liliana Archer CRNP [address] [place] [address] Gail Abraham Stress Tests Shawn [address] [place] [address] 01/23/2024 2:30 PM EST Office Visit Gynecology/Obstetrics [facility] [address] [place] [address] Liliana Archer CRNP [address] [place] [address] Jarad Non Stress Tests Shawn [address] [place] [address] 01/31/2024 8:00 AM EST Imaging [facility], Shawn Abraham [address] [place] [address] 01/31/2024 9:15 AM EST Office Visit Gynecology/Obstetrics [facility] [address] [place] [address] Rubia De La Cruz PA-C [address] [place] [address] 02/05/2024 11:00 AM EST Office Visit Gynecology/Obstetrics [facility] [address] [place] [address] Gail Sparks CRNP [address] [place] [address] Jarad, Non Stress Tests Shawn [address] [place] [address] 02/13/2024 2:30 PM EST Office Visit Gynecology/Obstetrics [facility] [address] [place], [place] [address] Liliana Archer CRNP [address] [place] [address] Abraham Non Stress Tests Shawn [address] [place] [address] 05/26/2024 3:20 PM EDT Office Visit [facility] [address] [facility] [phone] Chuyita Villegas MD [address] [facility] [place] [address] Health Maintenance Due Date Last Done Comments [...] (RSV) documented in this encounter Care Teams Save All Operator Relationship Specialty Start Date End Date Chuyita Villegas MD [address] [place] [address] PCP - General Family Medicine 01/11/22 documented as of this encounter
--- OUTSIDE RECORDS SUMMARY | 2024-01-31 22:32 | External Medical Summary | Summary of Care ---
Author Name Unknown Organization [facility] Address [address] [place] [address] Phone [phone] Care Team Providers Care Credit Operations Processor Name Role Phone Chuyita Villegas MD Primary Care Provid er Encounter Details Date Type Department Care Team ([facility] st Contact Info) Description 01/01/2024 8:45 AM EST Office Visit Design Consultant OB Maternal Medicine [facility] Crystal Cee [address] [place] [address] [address] [place], [place] [id number] Rocío Jones, DO [address] [place], [place] [id number] Maternal chronic hypertension in third trimester*; 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 trimester; 33 weeks gestation of Allergies No known active allergiesdocumented as of this encounter (statuses as of 01/01/2024) Medications LORazepam 0.5 MG Oral Tablet (Ativan)Indicati ons:GILMAR (generalized anxiety disorder),Modera te episode of recurrent major depressive disorder (HCC) Take 1 Tablet by mouth 3 times a day as needed for Anxiety. 15 Tablet 3 Active Additional Information Patient not taking.Reported on 12/26/2023 28-0.8 MG Oral Tablet Take by mouth. [...] Patient taking differently: 40 mg, Reported on 12/26/2023 FLUoxetine HCl 10 MG Oral Capsule (PROzac)Indicati ons:GILMAR (generalized anxiety disorder),Modera te episode of recurrent major depressive disorder (HCC) Take 1 capsule by mouth once daily. Add to 20 mg capsule for 30 mg total daily dose. 90 Capsule 1 4 Active Additional Information Patient not taking.Reported on 12/26/2023 amLODIPine Besylate 5 MG Oral Tablet (Norvasc)Indicat [...] as of this encounter (statuses as of 01/01/2024) Active Problems Problem Noted Date Diagnosed Date Need for prophylactic vaccin ation and inoculation against respiratory syncytial virus (RSV) 12/26/2023 Overview (12/26/2023): Received RSV vaccine 12/26/2023 History of laminectomy 11/27/2023 Maternal chronic hypertension 07/19/2023 Overview (12/11/2023): Obtain baseline lab work ARIES (if not already done) with assessment of proteinuria (24-hour urine protein or ettxfnv-iv-idtalabdpc ratio) and CBC, serum AST/ALT/creatinine. If patient [...] assessment of proteinuria (24-hour urine protein or oisgsbj-ny-wazlqhzwhn ratio) and CBC, serum AST/ALT/creatinine. If patient [...] function stable. Patient had preconception counseling with [facility] licensed genetic counselor earlier this year. Declined [...] H/O laminectomy 07/11/2023 Overview (11/27/2023): Laminectomy in [place] in 2011. Will need anesthesia consult. 28 [...] as of this encounter (statuses as of 01/01/2024) Resolved Problems Problem Noted Date Diagnosed Date Resolved Date Supervision of normal first , antepartum 07/11/2023 10/09/2023 documented as of this encounter (statuses as of 01/01/2024) Immunizations Name Administration Dates Next Due RSV [...] money to get more. 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 trimester 33 weeks gestation of Ultrasound summary: Patient presented at 33w 0d for growth assessment. Normal growth with EFW 2070 g at 37%ile. Normal TISH at 10.6 cm. Cephalic presentation. BPP 8/8. I reviewed the ultrasound images. Gail was given the opportunity to meet with me if she had anyquestions. Please refer to the ultrasound report for additional details about today's ultrasound examination. RECOMMENDATIONS: Recommend follow up ultrasound with MFM in 4 weeks for growth secondary to above indications. Weekly NSTs. See prior formal MFM consultation note. Thank you for allowing us to participate in the care of this patient. Please call with any questions. Rocío Jones DO 01/01/2024 9:36 AM documented in this encounter Miscellaneous Notes * Assessment & Plan Note - Rocío Jones DO - 01/01/2024 9:36 AM EST Associated Problem(s): Maternal chronic hypertension BP Readings from Last 5 Encounters: 12/26/23 134/78 12/13/23 128/88 12/11/23 136/98 11/27/23 134/88 11/06/23 126/84 Please titrate medication to maintain goal BP < 140/90. documented in this encounter Plan of Treatment Upcoming Encounters Date Type Department Care Team (Late st Contact Info) Description 01/02/2024 2:30 PM EST Office Visit Gynecology/Obstetrics [facility] [address] [place] [address] Rudi Landry MD [address] [place] [address] Jarad, Non Stress Tests Shawn [address] [place] [address] 01/09/2024 2:30 PM EST Office Visit Gynecology/Obstetrics [facility] [address] [place] [address] Liliana Archer CRNP [address] [place] [address] Abraham, Non Stress Tests Shawn [address] [place] [address] 01/16/2024 2:30 PM EST Office Visit Gynecology/Obstetrics [facility] [address] [place] [address] Liliana Archer CRNP [address] [place] [address] Abraham, Non Stress Tests Shawn [address] [place] [address] 01/23/2024 2:30 PM EST Office Visit Gynecology/Obstetrics [facility] [address] [place] [address] Liliana Archer CRNP [address] [place] [address] Abraham, Non Stress Tests Shawn [address] [place] [address] 01/31/2024 8:00 AM EST Imaging [facility], Shawn Abraham [address] [place] [address] 01/31/2024 9:15 AM EST Office Visit Gynecology/Obstetrics [facility] [address] [place] [address] Rubia De La Cruz PA-C [address] [place] [address] 02/05/2024 11:00 AM EST Office Visit Gynecology/Obstetrics [facility] [address] [place] [address] Gail Sparks CRNP [address] [place] [address] Abraham, Non Stress Tests Shawn [address] [place] [address] 02/13/2024 2:30 PM EST Office Visit Gynecology/Obstetrics [facility] [address] [place] [address] Liliana Archer CRNP [address] [place] [address] Abraham, Non Stress Tests Shawn [address] [place] [address] 05/26/2024 3:20 PM EDT Office [facility] [address] [place] [phone] Chuyita Villegas MD [address] [place] [address] Health Maintenance Due Date Last Done Comments [...] trimester 33 weeks gestation of state, incidental documented in this encounter Care Teams Credit Operations Processor Relationship Specialty Start Date End Date Chuyita Villegas MD [address] [place] [address] PCP - General Family Medicine 01/11/22 documented as of this encounter
--- OUTSIDE RECORDS SUMMARY | 2024-01-31 22:32 | External Medical Summary | Summary of Care ---
Author Name Unknown Organization [facility] Address [address] [facility] [place] [address] Phone [phone] Care Team Providers Care Ibm Bpm Architect Name Role Phone Chuyita Villegas MD Primary Care Provid er Reason for Visit * Reason Comments Return Visit Encounter Details Date Type Department Care Team (Latest Contact Info) Description 01/31/2024 9:15 AM EST [facility] [address] [place] [address] Rubia De La Cruz PA-C [address] [place] [address] High-risk in third trimester*; Chronic hypertension during [...] assessment of proteinuria (24-hour urine protein or nvbdnpj-oo-zbkorbvamu ratio) and CBC, serum AST/ALT/creatinine. If patient [...] assessment of proteinuria (24-hour urine protein or nqezvwt-vr-lknhxnahxi ratio) and CBC, serum AST/ALT/creatinine. If patient [...] function stable. Patient had preconception counseling with [facility] licensed genetic counselor earlier this year. Declined [...] H/O laminectomy 07/11/2023 Overview (11/27/2023): Laminectomy in [place] in 2011. Will need anesthesia consult. 28 [...] money to get more. 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 Will send MyG with pre eclampsia precautions. To check BP at next scheduled appointment 02/04. Need for prophylactic vaccination and inoculation against [...] Gynecology/Obstetrics Garrett Abraham [address] [place] [address] BackerGail CRNP [address] [place] [address] Gail Abarham Stress Tests Shawn [address] [place] [address] 02/13/2024 2:30 PM EST Office Visit Gynecology/Obstetrics [facility] [address] [place] [address] Liliana Archer CRNP [address] [place] [address] Abraham, Non Stress Tests Shawn [address] [place] [address] 05/26/2024 3:20 PM EDT Office Visit [facility] [address] [facility] [place] [phone] Chuyita Villegas MD [address] [place], [place] [id number] Health Maintenance Due Date Last Done Comments [...] high-risk documented in this encounter Care Teams Ibm Bpm Architect Relationship Specialty Start Date End Date Chuyita Villegas MD PCP - General Family Medicine 01/11/22 documented as of this encounter
--- OUTSIDE RECORDS SUMMARY | 2024-01-31 22:32 | External Medical Summary | Summary of Care ---
Author Name Unknown Organization [facility] Address [address] [place] [address] Phone [phone] Care Team Providers Care Identity Access Management Architect Name Role Phone Chuyita Villegas MD Primary Care Provid er Reason for Visit * Reason Onset Date Comments Blood Pressure Check 12/13/2023 Encounter Details Date Type Department Care Team ([facility] st Contact Info) Description 12/13/2023 Telephone Gynecology/Obstetrics [facility] [address] [facility] [place] [address] Gail Sparks CRNP [address] [place] [address] Blood Pressure Check Allergies No known active [...] assessment of proteinuria (24-hour urine protein or hlvfnlg-ma-zzopbddudt ratio) and CBC, serum AST/ALT/creatinine. If patient [...] function stable. Patient had preconception counseling with [facility] licensed genetic counselor earlier this year. [...] indicated. H/O laminectomy 07/11/2023 Overview: Laminectomy in [place] in 2011. Will need anesthesia consult. 28 [...] money to get more. Never true 09/25/2023 Brooks Depression Scale Answer Date Recorded Brooks Depression Scale Total 5 07/11/2023 The thought [...] No 09/25/2023 Does the household have a acoma[facility] service unitlar source of income? (Household - for ages [...] encounter Miscellaneous Notes * Telephone Encounter - Ivonne Winkler LPN - 12/13/2023 12:14 PM EST Patient identified on voicemail, left message stating no further fu needed per dr sibley, return fornext scheduled appt, call with concerns. * Telephone Encounter - Garcia Diaz MD [...] 12/26/2023 9:15 AM EST Office Visit Gynecology/Obstetrics [facility] [address] [place] [address] Liliana Archer CRNP [address] [place] [address] Jarad, Non Stress Tests Shawn [address] [place] [address] 01/01/2024 8:45 AM EST Imaging Maternal Medicine [facility] Crystal Cee [address] [place] [address] [address] [place] [address] 01/02/2024 2:30 PM EST Office Visit Gynecology/Obstetrics [facility] Andrades [address] [place] [address] Rudi Landry MD [address] [place] [address] Jarad, Non Stress Tests Shawn [address] [place] [address] 01/09/2024 2:30 PM EST Office Visit Gynecology/Obstetrics [facility] [address] [place] [address] Liliana Archer CRNP [address] [place] [address] Abraham, Non Stress Tests Shawn [address] [place] [address] 01/16/2024 2:30 PM EST Office Visit Gynecology/Obstetrics [facility] [address] [place] [address] Liliana Archer CRNP [address] [place] [address] Jarad Non Stress Tests Shawn [address] [place] [address] 01/23/2024 2:30 PM EST Office Visit Gynecology/Obstetrics Garrett Abraham [address] [place] [address] Liliana Archer CRNP [address] [place] [address] Jarad Non Stress Tests Shawn [address] [place] [address] 01/31/2024 8:00 AM EST Imaging Maternal Medicine Imaging, Shawn Abraham [address] [place] [address] 01/31/2024 9:15 AM EST Office Visit Gynecology/Obstetrics Garrett Abraham [address] [place] [address] Rubia De La Cruz PA-C [address] [place] [address] 02/05/2024 11:00 AM EST Office Visit Gynecology/Obstetrics [facility] [address] [place] [address] Gail Sparks CRNP [address] [place] [address] Jarad Non Stress Tests Shawn [address] [place] [address] 02/13/2024 2:30 PM EST Office Visit Gynecology/Obstetrics Garrett Abraham [address] [place] [address] Liliana Archer CRNP [address] [place] [address] Gail Abraham Stress Tests Shawn [address] [place] [address] 05/26/2024 3:20 PM EDT Office Visit [facility] [address] [place] [address] Chuyita Villegas MD [address] [place] [address] Health Maintenance Due Date Last Done Comments [...] filedocumented as of this encounter Care Teams Identity Access Management Architect Relationship Specialty Start Date End Date Nelly, Chuyita Celena Chipe, MD [address] [place] [address] PCP - General Family Medicine 01/11/22 documented as of this encounter
--- OUTSIDE RECORDS SUMMARY | 2024-01-31 22:32 | External Medical Summary | Summary of Care ---
Author Name Unknown Organization [facility] Address [address] [place] [address] Phone [phone] Care Team Providers Care Dairy Science Teacher Name Role Phone Chuyita Villegas MD Primary Care Provid er Encounter Details Date Type Department Care Team ([facility] st Contact Info) Description 01/23/2024 2:30 PM EST Office Visit Gynecology/Obstetric s [facility] [address] [facility] [place] [address] Liliana Archer CRNP [address] [place] [address] Abrahma, Non Stress Tests Shawn [address] [place] [address] High-risk in third trimester*; Medical marijuana use; 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 trimester; Anxiety during ; H/O laminectomy; Rh negative, antepartum; Chronic hypertension during , antepartum; Need for prophylactic vaccination and inoculation against respiratory syncytial virus (RSV) Allergies No known active allergiesdocumented as of this encounter (statuses as of 01/23/2024) Medications LORazepam 0.5 MG Oral Tablet (Ativan)Indicati [...] as of this encounter (statuses as of 01/23/2024) Active Problems Problem Noted Date Diagnosed Date Need for prophylactic vaccin ation and inoculation against respiratory syncytial virus (RSV) 12/26/2023 Overview (12/26/2023): Received RSV vaccine 12/26/2023 History of laminectomy 11/27/2023 Maternal chronic hypertension 07/19/2023 Overview (12/11/2023): Obtain baseline lab work ARIES (if not already done) with assessment of proteinuria (24-hour urine protein or ivdvgre-rj-qcujkwziwk ratio) and CBC, serum AST/ALT/creatinine. If patient [...] assessment of proteinuria (24-hour urine protein or vtmuqoc-jp-dyhlugfqjs ratio) and CBC, serum AST/ALT/creatinine. If patient [...] H/O laminectomy 07/11/2023 Overview (11/27/2023): Laminectomy in [place] in 2011. Will need anesthesia consult. 28 [...] as of this encounter (statuses as of 01/23/2024) Resolved Problems Problem Noted Date Diagnosed Date Resolved Date Supervision of normal first , antepartum 07/11/2023 10/09/2023 documented as of this encounter (statuses as of 01/23/2024) Immunizations Name Administration Dates Next Due RSV [...] money to get more. 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 Had anesthesia consult earlier today: OK for epidural. States her BP was good at that visit, diastolic was 74. Baby is active. No contractions, bleeding, LOF. Scheduled 39w IOL d/t HTN. GBS done Paint Roller Assembler Documentation Provider requested store management trainee. Name of store management trainee: Genevieve ASSESSMENT assessment with Non-stress Test completed on 01/23/2024 at 36.1weeks gestation for indicationof chronic hypertension heart baseline: 120 bpm Variability: Moderate Decelerations: absent Accelerations: present Contractions: 1 NST start time: 1433 NST stop time: 1456 NST strip reviewed, interpreted, and approved by OB providerLiliana CRNP . NST strip stored in clinic storage file documented in this encounter Plan of Treatment Upcoming Encounters Date Type Department Care Team (Late st Contact Info) Description 01/31/2024 8:00 AM EST Imaging Maternal Medicine Imaging, Shawn Abraham [address] [place] [address] 01/31/2024 9:15 AM EST Office Visit Gynecology/Obstetrics [facility] [address] [place] [address] Rubia De La Cruz PA-C [address] [place] [address] 02/05/2024 11:00 AM EST Office Visit Gynecology/Obstetrics [facility] [address] [place] [address] Gail Sparks CRNP [address] [place] [address] Abraham, Non Stress Tests Shawn [address] [place] [address] 02/13/2024 2:30 PM EST Office Visit Gynecology/Obstetrics [facility] [address] [place] [address] Liliana Archer CRNP [address] [place] [address] Abraham, Non Stress Tests Shawn [address] [place] [address] 05/26/2024 3:20 PM EDT Office Visit [facility] [address] [facility] [place] [phone] Chuyita Villegas MD [address] [place] [address] Pending Results Name Type Priority Associated Diagnoses Date /Time GROUP B STREP CULTURE/PCR Lab Routine High-risk in third trimester 01/23/2024 3:34 PM EST Scheduled Orders Name Type Priority Associated Diagnoses Orde r Schedule GROUP B STREP CULTURE/PCR Lab Routine High-risk in third trimester Expected: 01/23/2024, Expires: 01/22/2025 Health Maintenance Due Date Last Done Comments [...] during H/O laminectomy Other postprocedural status Rh negative, antepartum Rhesus isoimmunization affecting management of mother, antepartum condition Chronic hypertension during , antepartum Need for prophylactic vaccination and inoculation against respiratory syncytial virus (RSV) documented in this encounter Care Teams Dairy Science Teacher Relationship Specialty Start Date End Date Chuyita Villegas MD PCP - General Family Medicine 01/11/22 documented as of this encounter
--- OUTSIDE RECORDS SUMMARY | 2024-01-31 22:32 | External Medical Summary | Summary of Care ---
Author Name Unknown Organization [facility] Address [address] [place] [address] Phone [phone] Care Team Providers Care Antenna Engineer Name Role Phone Chuyita Villegas MD Primary Care Provid er Encounter Details Date Type Department Care Team ([facility] st Contact Info) Description 01/31/2024 8:00 AM EST Office Visit Rim Technician Obstetrics Maternal Medicine, [address] [address] Rocío Jones, DO [address] [place], [place] [phone] 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 trimester*; Maternal chronic hypertension in third trimester; Ultrasound for screening for growth restriction; 37 weeks gestation of Allergies No known active [...] assessment of proteinuria (24-hour urine protein or gsbvlqp-jy-pttcjkeekq ratio) and CBC, serum AST/ALT/creatinine. If patient [...] assessment of proteinuria (24-hour urine protein or mbtuzxa-ts-vimcuxymdj ratio) and CBC, serum AST/ALT/creatinine. If patient [...] stable. Patient had preconception counseling with [facility] licensed genetic counselor earlier this year. Declined [...] H/O laminectomy 07/11/2023 Overview (11/27/2023): Laminectomy in [place] in 2011. Will need anesthesia consult. 28 [...] money to get more. Never true 09/25/2023 [place] Depression Scale Answer Date Recorded [place] Depression Scale Total 5 07/11/2023 The thought [...] 09/25/2023 Does the household have a presbyterian hospitallar source of income? 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 Ultrasound for screening for growth restriction 37 weeks gestation of Ultrasound summary: Patient presented at 37w 2d for growth assessment. Normal growth with EFW 2612 g at 12%ile. Normal TISH at 9.6 cm. Cephalic presentation. BPP 8/8. I reviewed the ultrasound images. Gail was given the opportunity to meet with me if she had anyquestions. Please refer to the ultrasound report for additional details about today's ultrasound examination. RECOMMENDATIONS: Follow up with MFM for ultrasound as clinically indicated. See prior formal MFM consultation note. Thank you for allowing us to participate in the care of this patient. Please call with any questions. Rocío Jones DO 01/31/2024 2:15 PM documented in this encounter Miscellaneous Notes * Assessment & Plan Note - Rocío Jones DO - 01/31/2024 2:15 PM EST Associated Problem(s): Maternal chronic hypertension BP Readings from Last 5 Encounters: 01/31/24 132/96 01/16/24 120/78 01/09/24 126/82 12/26/23 134/78 12/13/23 128/88 Please titrate medication to maintain goal BP < 140/90. documented in this encounter Plan of Treatment Upcoming Encounters Date Type Department Care Team (Late st Contact Info) Description 02/05/2024 11:00 AM EST Office Visit Gynecology/Obstetrics [facility] Abraham [address] [place] [address] Gail Sparks CRNP [address] [place] [address] Jarad Non Stress Tests Shawn [address] [place] [address] 02/13/2024 2:30 PM EST Office Visit Gynecology/Obstetrics Garrett Abraham [address] [place] [address] Liliana Archer CRNP [address] [place] [address] Jarad Non Stress Tests Shawn [address] [place] [address] 05/26/2024 3:20 PM EDT Office Visit [facility] [place] Lele Nieves [address] [place] [phone] Chuyita Villegas MD [address] [place] [address] Health Maintenance Due Date Last Done Comments [...] trimester 33 weeks gestation of state, incidental 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 trimester- Primary Maternal chronic hypertension in third trimester Ultrasound for screening for growth restriction screening for growth retardation using ultrasonics 37 weeks gestation of state, incidental documented in this encounter Care Teams Antenna Engineer Relationship Specialty Start Date End Date Chuyita Villegas MD PCP - General Family Medicine 01/11/22 documented as of this encounter
--- OUTSIDE RECORDS SUMMARY | 2024-01-31 22:32 | External Medical Summary | Summary of Care ---
Author Name Unknown Organization [facility] Address [address] [facility] [place] [address] Phone [phone] Care Team Providers Care Substation Superintendent Name Role Phone Chuyita Villegas MD Primary Care Provid er Reason for Referral * Evaluate & Treat - Unlimited Visits (Within 10 days (routine)) - Pending Review Specialty Diagnoses / Procedures Referred By Maryann purvis Referred To Contact Physical Therapy / Physical Medicine And Rehab Diagnoses Back pain affecting in third trimester Liliana Archer CRNP [address] [place] [address] Phone: tel: fax: Referral ID Status Reason Start Date Expiration Date Visits Requested Visits Authorized [id number] Pending Review Specialty Services Required [phone] Question Answer Referral Priority Within 10 days (routine) Where should this appointment be scheduled? External Comments Back pain in Reason for Visit * Reason Comments Return Visit Non Stress Test Encounter Details Date Type Department Care Team (Late st Contact Info) Description 12/26/2023 9:15 AM EST Office Visit Gynecology/Obstetric s [facility] [address] [place] [address] Liliana Archer CRNP [address] [place] [address] Abraham, Non Stress Tests Shawn [address] [place] [address] High-risk in third trimester*; Medical marijuana use; 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 trimester; Anxiety during ; H/O laminectomy; Rh negative, antepartum; Maternal chronic hypertension in third trimester; Back pain affecting in third trimester; Need for prophylactic vaccination and inoculation against respiratory syncytial virus (RSV) Allergies No known active allergiesdocumented as of this encounter (statuses as of 12/26/2023) Medications LORazepam 0.5 MG Oral Tablet (Ativan)Indicati [...] mouth in the morning. 90 Capsule 1 Active documented as of this encounter (statuses as of 12/26/2023) Active Problems Problem Noted Date Diagnosed Date Need for prophylactic vaccin ation and inoculation against respiratory syncytial virus (RSV) 12/26/2023 Overview (12/26/2023): Received RSV vaccine 12/26/2023 History of laminectomy 11/27/2023 Maternal chronic hypertension 07/19/2023 Overview (12/11/2023): Obtain baseline lab work ARIES (if not already done) with assessment of proteinuria (24-hour urine protein or zajlowj-bs-fwmdyalqtd ratio) and CBC, serum AST/ALT/creatinine. If patient [...] (H) 07/11/2023 11:49 AM Assessment & Plan (12/06/2023 12:09 PM EDT): [...] assessment of proteinuria (24-hour urine protein or kzmkzmc-jn-zvfewrcslr ratio) and CBC, serum AST/ALT/creatinine. If patient [...] function stable. Patient had preconception counseling with [facility] licensed genetic counselor earlier this year. [...] H/O laminectomy 07/11/2023 Overview (11/27/2023): Laminectomy in [place] in 2011. Will need anesthesia consult. 28 [...] as of this encounter (statuses as of 12/26/2023) Resolved Problems Problem Noted Date Diagnosed Date Resolved Date Supervision of normal first , antepartum 07/11/2023 10/09/2023 documented as of this encounter (statuses as of 12/26/2023) Immunizations Name Administration Dates Next Due RSV [...] money to get more. Never true 09/25/2023 [place] Depression Scale Answer Date Recorded [place] Depression Scale Total 5 07/11/2023 The thought [...] No 09/25/2023 Does the household have a [facility] source of income? 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 Patient doing well no complaints. Injection given IM as ordered. Patient tolerated well. Patient to follow up as directed. Patient instructed to call if any complications. Patient verbalized understanding of instructions given and her follow up appt for ZARA Injection site: Left Deltoid Medication Source: Dispensed stock medication * Liliana Archer CRNP - 12/26/2023 9:35 AM EST 32w1d C/o back pain, thinks it is sciatica. History of back surgery, unsure if she can go to chiropractor. PT referral placed. No other concerns today. Not taking BP at home, feeling well on meds. BP ok today. Has MFM appt next week. RSV vaccine today. ASSESSMENT assessment with Non-stress Test completed on 12/26/2023 at 32.1weeks gestation for indicationof chronic hypertension heart baseline: 130 bpm Variability: Moderate Decelerations: absent Accelerations: present Contractions: None. +uterine irritability. NST start time: 1017 NST stop time: 1044 NST strip reviewed, interpreted, and approved by OB provider, ROBERTO Nuñez . NST strip stored in clinic storage file * Genevieve Dunlap CMA - 12/26/2023 9:20 AM EST 32w1d Denies any concerns documented in this encounter Plan of Treatment Upcoming Encounters Date Type Department Care Team (Late st Contact Info) Description 01/01/2024 8:45 AM EST Imaging Maternal Medicine [facility] Crystal Cee [address] [place] [address] [address] [place] [address] 01/02/2024 2:30 PM EST Office Visit Gynecology/Obstetrics [facility] [address] [place] [address] Rudi Landry MD [address] [place] [address] Gail Abraham Stress Tests Shawn [address] [place] [address] 01/09/2024 2:30 PM EST Office Visit Gynecology/Obstetrics [facility] [address] [place] [address] Liliana Archer CRNP [address] [place] [address] Jarad Non Stress Tests Shawn [address] [place] [address] 01/16/2024 2:30 PM EST Office Visit Gynecology/Obstetrics [facility] [address] [place] [address] Liliana Archer CRNP [address] [place] [address] Jarad Non Stress Tests Shawn [address] [place] [address] 01/23/2024 2:30 PM EST Office Visit Gynecology/Obstetrics [facility] [address] [place] [address] Liliana Archer CRNP [address] [place] [address] Jarad Non Stress Tests Shawn [address] [place] [address] 01/31/2024 8:00 AM EST Imaging Maternal Medicine Imaging, Shawn Abraham [address] [place] [address] 01/31/2024 9:15 AM EST Office Visit Gynecology/Obstetrics [facility] [address] [place] [address] Rubia De La Cruz PA-C [address] [place] [address] 02/05/2024 11:00 AM EST Office Visit Gynecology/Obstetrics [facility] [address] [place], [place] [address] Gail Sparks CRNP [address] [place] [address] Jarad Non Stress Tests Shawn [address] [place] [address] 02/13/2024 2:30 PM EST Office Visit Gynecology/Obstetrics [facility] Abraham [address] [place] [address] Liliana Archer CRNP [address] [place] [address] Jarad Non Stress Tests Shawn [address] [place] [address] 05/26/2024 3:20 PM EDT Office Visit [facility] [address] [place] [address] Chuyita Villegas MD [address] [place] [address] Scheduled Referrals Name Type Priority Associated Diagnoses Orde r Schedule PHYSICAL THERAPY REFERRAL OP Referral Within 10 days (routine) Back pain affecting in third trimester Ordered: 12/26/2023 Health Maintenance Due Date Last Done Comments [...] ultrasonics 29 weeks gestation of state, incidental High-risk in third trimester- Primary Medical marijuana use Encounter for long-term (current) use of other medications 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 trimester Anxiety during H/O laminectomy Other postprocedural status Rh negative, antepartum Rhesus isoimmunization affecting management of mother, antepartum condition Maternal chronic hypertension in third trimester Back pain affecting in third trimester Need for prophylactic vaccination and inoculation against respiratory syncytial virus (RSV) documented in this encounter Care Teams Substation Superintendent Relationship Specialty Start Date End Date Chuyita Villegas MD [address] [place] [address] PCP - General Family Medicine 01/11/22 documented as of this encounter
--- OUTSIDE RECORDS SUMMARY | 2024-01-31 22:32 | External Medical Summary | Summary of Care ---
Author Name Unknown Organization [facility] Address [address] [place] [address] Phone [phone] Care Team Providers Care Marketing Representative Name Role Phone Chuyita Villegas MD Primary Care Provid er Encounter Details Date Type Department Care Team ([facility] st Contact Info) Description 01/23/2024 2:30 PM EST Office Visit Gynecology/Obstetric s [facility] [address] [facility] [place] [address] Liliana Archer CRNP [address] [place] [address] Abraham, Non Stress Tests Shawn [address] [place] [address] High-risk in third trimester*; Medical marijuana use; [...] assessment of proteinuria (24-hour urine protein or jmwksir-sx-rptfxysfko ratio) and CBC, serum AST/ALT/creatinine. If patient [...] assessment of proteinuria (24-hour urine protein or tggawsl-iz-rrircvsmxp ratio) and CBC, serum AST/ALT/creatinine. If patient [...] function stable. Patient had preconception counseling with [facility] licensed genetic counselor earlier this [...] H/O laminectomy 07/11/2023 Overview (11/27/2023): Laminectomy in [place] in 2011. Will need anesthesia consult. 28 [...] money to get more. 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 GBS done Jewelry Sales Representative Documentation Provider requested manager file. Name of manager file: Genevieve ASSESSMENT assessment with Non-stress Test completed [...] Medicine Imaging, Shawn Abraham [address] [place] [address] 01/31/2024 9:15 AM EST Office Visit Gynecology/Obstetrics [facility] [address] [place] [address] Rubia De La Cruz PA-C [address] [place] [address] 02/05/2024 11:00 AM EST Office Visit Gynecology/Obstetrics [facility] [address] [place] [address] Gail Spraks CRNP [address] [place] [address] Abraham, Non Stress Tests Shawn [address] [place] [address] 02/13/2024 2:30 PM EST Office Visit Gynecology/Obstetrics [facility] [address] [place] [address] Liliana Archer CRNP [address] [place] [address] Abraham, Non Stress Tests Shawn [address] [place] [address] 05/26/2024 3:20 PM EDT Office Visit [facility] [address] [place] [phone] Chuyita Villegas MD [address] [place] [address] Scheduled Orders Name Type Priority Associated Diagnoses [...] (RSV) documented in this encounter Care Teams Marketing Representative Relationship Specialty Start Date End Date Chuyita Villegas MD PCP - General Family Medicine 01/11/22 documented as of this encounter
--- OUTSIDE RECORDS SUMMARY | 2024-01-31 22:32 | External Medical Summary ---
Author Name Unknown Address Unknown Organization K01:[facility] [place] [address] [place] [address] Laboratory Report Ordering Provider Test Date Status AJIT DICKENS 01/23/2024 15:34:14 Final Observation Date Value Abnormality Reference (Units ) Status Streptococcus agalactiae DNA [Presence] in Specimen by ANGELINA with probe detection 01/23/2024 15:34:14 Positive Abnormal Negative Final Group B Streptococcus detect ed by culture-enhanced PCR (amplified probe). GBS GBSCT - [facility] 01/23/2024 15:34:14 29.0 Final GBS SPCCT - [facility] 01/23/2024 15:34:14 31.1 Final Performing Location [facility] - [address] [place] [address]
--- OUTSIDE RECORDS SUMMARY | 2024-01-31 22:32 | External Medical Summary | Summary of Care ---
Author Name Unknown Organization [facility] Address [address] [facility] [place] [place] [address] Phone [phone] Care Team Providers Care Commonwealth Attorney Name Role Phone Chuyita Villegas MD Primary Care Provid er Reason for Visit * Reason Comments Return Visit Encounter Details Date Type Department Care Team (Latest Contact Info) Description 01/31/2024 9:15 AM EST [facility] [address] [place] [address] Rubia De La Cruz PA-C [address] [place] [address] High-risk in third trimester*; Chronic hypertension during [...] assessment of proteinuria (24-hour urine protein or sjspuep-pg-qkozsygufg ratio) and CBC, serum AST/ALT/creatinine. If patient [...] assessment of proteinuria (24-hour urine protein or zrszeow-uu-toffuxzchh ratio) and CBC, serum AST/ALT/creatinine. If patient [...] function stable. Patient had preconception counseling with [facility] licensed genetic counselor earlier this year. Declined [...] H/O laminectomy 07/11/2023 Overview (11/27/2023): Laminectomy in [place] in 2011. Will need anesthesia consult. 28 [...] money to get more. 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 [...] in this encounter Nursing Notes * Yeni Khaill LPN - 01/31/2024 8:48 AM EST 37w2d Denies vaginal bleeding/rom + movement Some contractions but nothing consistent BPP today with MFM 09/12 documented in this encounter Plan of Treatment Upcoming Encounters Date Type Department Care Team (Late st Contact Info) Description 02/05/2024 11:00 AM EST Office Visit Gynecology/Obstetrics [facility] [address] [place] [address] Gail Sparks CRNP [address] [place] [address] Gail Abraham Stress Tests Shawn [address] [place] [address] 02/13/2024 2:30 PM EST Office Visit Gynecology/Obstetrics [facility] [address] [place] [address] Liliana Archer CRNP [address] [place] [address] Abraham, Gail Stress Tests Shawn [address] [place] [address] 05/26/2024 3:20 PM EDT Office Visit [facility] [address] [facility] [facility] [place] [phone] Chuyita Villegas MD [address] [facility] [place] [address] Health Maintenance Due Date Last Done Comments [...] high-risk documented in this encounter Care Teams Commonwealth Attorney Relationship Specialty Start Date End Date Chuyita Villegas MD PCP - General Family Medicine 01/11/22 documented as of this encounter
--- OUTSIDE RECORDS SUMMARY | 2024-01-31 22:32 | External Medical Summary | Summary of Care ---
Author Name Unknown Organization [facility] Address [address] [place] [address] Phone [phone] Care Team Providers Care Photoengraving Finisher Name Role Phone Chuyita Villegas MD Primary Care Provid er Encounter Details Date Type Department Care Team ([facility] st Contact Info) Description 01/31/2024 8:00 AM EST Office Visit [facility] Obst[facility]s Maternal Medicine, [address] [address] Rocío Jones, DO [address] [place], [place] [id number] 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 trimester*; Maternal [...] assessment of proteinuria (24-hour urine protein or kcribmk-cv-dvwpqcapnk ratio) and CBC, serum AST/ALT/creatinine. If patient [...] assessment of proteinuria (24-hour urine protein or ndwhclq-li-oulfahlzoz ratio) and CBC, serum AST/ALT/creatinine. If patient [...] function stable. Patient had preconception counseling with [facility] licensed genetic counselor earlier this year. [...] H/O laminectomy 07/11/2023 Overview (11/27/2023): Laminectomy in [place] in 2011. Will need anesthesia consult. 28 [...] money to get more. Never true 09/25/2023 [place] Depression Scale Answer Date Recorded [place] Depression Scale Total 5 07/11/2023 The thought [...] No 09/25/2023 Does the household have a [facility] source [facility] income? 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 Not on file documented as of [...] Garrett Abraham [address] [place] [address] Gail Sparks CRNP [address] [place] [address] Jarad Non Stress Tests Shawn [address] [place] [address] 02/13/2024 2:30 PM EST Office Visit Gynecology/Obstetrics [facility] [address] [place] [address] Liliana Archer CRNP [address] [place] [address] Jarad Non Stress Tests Shawn [address] [place] [address] 05/26/2024 3:20 PM EDT Office Visit [facility] [place] [place] [address] Chuyita Villegas MD [address] [place] [address] Health Maintenance Due Date Last Done Comments [...] incidental documented in this encounter Care Teams Photoengraving Finisher Relationship Specialty Start Date End Date Chuyita Villegas MD PCP - General Family Medicine 01/11/22 documented as of this encounter
--- OUTSIDE RECORDS SUMMARY | 2024-01-31 22:33 | External Medical Summary | Summary of Care ---
Author Name Unknown Organization [facility] Address [address] [place] [address] Phone [phone] Care Team Providers Care Aircraft Design Engineer Name Role Phone Chyuita Villegas MD Primary Care Provid er Encounter Details Date Type Department Care Team ([facility] st Contact Info) Description 12/06/2023 8:00 AM EDT Office Visit Otolaryngology Teacher Obstetrics Maternal Medicine, [address] [address] Rocío Jones, DO [address] [place], [place] [id number] Maternal chronic hypertension, first trimester*; 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 trimester; Ultrasound for screening for growth restriction; 29 weeks gestation of Allergies No known active allergiesdocumented as of this encounter (statuses as of 12/06/2023) Medications Medication Sig Dispensed Refills Start Date End Date Status LORazepam 0.5 MG Oral Tablet (Ativan)Indication s:GILMAR (generalized anxiety disorder),Moderate episode of recurrent major [...] Active FLUoxetine HCl 20 MG Oral Capsule (PROzac)Indication s:GILMAR (generalized anxiety disorder) Take 1 capsule by mouth once daily. 90 Capsule 1 10/15/2023 Active FLUoxetine HCl 10 MG Oral Capsule (PROzac)Indication s:GILMAR (generalized anxiety disorder),Moderate episode of recurrent major depressive disorder (HCC) Take 1 capsule by mouth once daily. Add to 20 mg capsule for 30 mg total daily dose. 90 Capsule 1 10/15/2023 Active amLODIPine Besylate 5 MG Oral Tablet (Norvasc)Indicatio ns:Polycystic kidney disease,HTN, goal below 130/80 Take 1 Tablet by mouth in the morning. 90 Tablet 1 10/22/2023 Active Aspirin 81 MG Oral Capsule Take by mouth. Active Triamcinolone Acetonide 0.1 % External Ointment (Aristocort)Indica tions:Flexural eczema Apply topically to affected area twice daily. 15 g 4 12/03/2023 Active documented as of this encounter (statuses as of 12/06/2023) Active Problems Problem Noted Date Diagnosed Date History of laminectomy 11/27/2023 Maternal chronic hypertension, first trimester 0 07/19/2023 Overview: Obtain baseline lab work ARIES (if not already done) with assessment of proteinuria (24-hour urine protein or wxtdwsb-aj-gcxhhqacof ratio) and CBC, serum AST/ALT/creatinine. If patient [...] Currently stable on amlodipine 5 mg daily. Recommend bASA 81 mg beginning at 12-13 [...] function stable. Patient had preconception counseling with [facility] licensed genetic counselor earlier this year. [...] indicated. H/O laminectomy 07/11/2023 Overview: Laminectomy in [place] in 2011. Will need anesthesia consult. 28 [...] as of this encounter (statuses as of 12/06/2023) Resolved Problems Problem Noted Date Diagnosed Date Resolved Date Supervision of normal first , antepartum 07/11/2023 10/09/2023 documented as of this encounter (statuses as of 12/06/2023) Immunizations Name Administration Dates Next Due Seasonal [...] money to get more. Never true 09/25/2023 Sidney Depression Scale Answer Date Recorded Sidney Depression Scale Total 5 07/11/2023 The thought [...] Progress Notes * Rocío Jones DO - 12/06/2023 12:21 PM EDT Gail presented today at 29w2d for an ultrasound for the following indications: Maternal chronic hypertension, first trimester Assessment & Plan: BP Readings from Last 5 Encounters: 11/27/23 134/88 11/06/23 126/84 10/09/23 132/80 09/07/23 134/82 08/08/23 124/78 Please titrate medication to maintain goal BP < 140/90. 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 trimester Ultrasound for screening for growth restriction 29 weeks gestation of Ultrasound summary: Patient presented at 29w 2d for growth assessment. Normal growth with EFW 1421 g at 48%ile. Normal TISH at 10.1 cm. Cephalic presentation. I reviewed the ultrasound images. aGil was given the opportunity to meet with me if she had anyquestions. Please refer to the ultrasound report for additional details about today's ultrasound examination. RECOMMENDATIONS: Recommend follow up ultrasound with MFM in 4-6 weeks for growth secondary to above indications. See prior formal MFM consultation note. Thank you for allowing us to participate in the care of this patient. Please call with any questions. Rocío Jones DO 12/06/2023 12:21 PM documented in this encounter Miscellaneous Notes * Assessment & Plan Note - Rocío Jones DO - 12/06/2023 12:09 PM EDT Associated Problem(s): Maternal chronic hypertension, first trimester BP Readings from Last 5 Encounters: 11/27/23 134/88 11/06/23 126/84 10/09/23 132/80 09/07/23 134/82 08/08/23 124/78 Please titrate medication to maintain goal BP < 140/90. documented in this encounter Plan of Treatment Upcoming Encounters Date Type Department Care Team (Late st Contact Info) Description 12/11/2023 1:45 PM EST Office Visit Gynecology/Obstetrics Garrett Abraham [address] [place] [address] Gail Sparks CRNP [address] [place] [address] 12/26/2023 9:15 AM EST Office Visit Gynecology/Obstetrics SeanPaulas Abraham [address] [place] [address] Liliana Archer CRNP [address] [place] [address] Jarad Non Stress Tests Shawn [address] [place] [address] 01/01/2024 8:45 AM EST Imaging [facility] Crystal Cee [address] [place] [address] [address] [place] [address] 01/02/2024 2:30 PM EST Office Visit Gynecology/Obstetrics Sean's Abraham [address] [place] [address] Rudi Landry MD [address] [place] [address] Abraham, Non Stress Tests Shawn [address] [place] [address] 01/09/2024 2:30 PM EST Office Visit Gynecology/Obstetrics Garrett Abraham [address] [place] [address] Liliana Archer, SIZE WORKER [address] [place] [address] Jarad Non Stress Tests Shawn [address] [place] [address] 01/16/2024 2:30 PM EST Office Visit Gynecology/Obstetrics Garrett Abraham [address] [place] [address] Liliana Archer, SIZE WORKER [address] [place] [address] Jarad Non Stress Tests Shawn [address] [place] [address] 01/23/2024 2:30 PM EST Office Visit Gynecology/Obstetrics Garrett Abraham [address] [place] [address] Liliana Archer, SIZE WORKER [address] [place] [address] Abraham Non Stress Tests Shawn [address] [place] [address] 01/31/2024 8:00 AM EST Imaging Maternal Medicine Imaging, [address] [place] [address] 01/31/2024 9:15 AM EST Office Visit Gynecology/Obstetrics Garrett Abraham [address] [place] [address] Rubia De La Cruz PA-C [address] [place] [address] 02/05/2024 11:00 AM EST Office Visit Gynecology/Obstetrics Garrett Andrades [address] [place] [address] Gail Sparks CRNP [address] [place] [address] Abraham Non Stress Tests Shawn [address] [place] [address] 02/13/2024 2:30 PM EST Office Visit Gynecology/Obstetrics Garrett Andrades [address] [place] [address] Liliana Archer CRNP [address] [place] [address] AbrahamGail tubbs Stress Tests Shawn [address] [place] [address] 05/26/2024 3:20 PM EDT Office Visit [facility] [address] [place] [facility] [place] [id number] Chuyita Villegas MD [address] [place] [address] Health Maintenance Due Date Last Done Comments Depression Monitoring 2002 HPV (Gardasil) Vaccine (2 - 3-dose series) 07/23/2008 06/25/2008 COVID-19 Vaccine ( season) 2023 02/08/2021, 05/05/2020, 04/07/2020 GFR 11/26/2024 11/27/2023, 06/0 06/2023, 02/16/2023, Additional history exists Pap Smear 03/21/2026 03/21/2023 [...] as of this encounter Visit Diagnoses Diagnosis Maternal chronic hypertension, first trimester- Primary 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 trimester Ultrasound for screening for growth restriction screening for growth retardation using ultrasonics 29 weeks gestation of state, incidental documented in this encounter Care Teams Aircraft Design Engineer Relationship Specialty Start Date End Date Chuyita Villegas MD [address] [place] [address] PCP - General Family Medicine 01/11/22 documented as of this encounter
--- OUTSIDE RECORDS SUMMARY | 2024-01-31 22:33 | External Medical Summary ---
Author Name Unknown Address Unknown Organization [facility] [address] [place] [address] Laboratory Report Ordering Provider Test Date Status ALEM GARCIA 12/11/2023 14:45:03 Final Observation Date Value Abnormality Reference (Units ) Status AST (Aspartate aminotransferase) 12/11/2023 14:45:03 21 10-35 (U/L) Final Performing Location [facility] [place] [address]
--- OUTSIDE RECORDS SUMMARY | 2024-01-31 22:33 | External Medical Summary | Summary of Care ---
Author Name Unknown Organization [facility] Address [address] [place] [address] Phone [phone] Care Team Providers Care Cook Pressure Name Role Phone Chuyita Villegas MD Primary Care Provid er Reason for Referral * Evaluate & Treat - Unlimited Visits (Within 10 days (routine)) - Pending Review Specialty Diagnoses / Procedures Referred By Maryann purvis Referred To Contact Anesthesiology Diagnoses History of laminectomy Gail Sparks CRNP [address] [place] [address] Referral ID Status Reason Start Date Expiration Date Visits Requested Visits Authorized [id number] Pending Review Specialty Services Required [phone] Question Answer Referral Priority Within 10 days (routine) Where should this appointment be scheduled? External - [facility] Comments Patient is , Estimated Date of Delivery: 02/19/24 Hx laminectomy Reason for Visit * Reason Comments Return Visit Encounter Details Date Type Department Care Team (Late st Contact Info) Description 11/27/2023 8:30 AM EDT Office Visit Gynecology/Obstetri denilson Abraham [address] [place] [address] Gail Sparks CRNP [address] [place] [address] High-risk in third trimester*; Medical marijuana use; 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 trimester; Anxiety during ; Rh negative status during in third trimester; Maternal chronic hypertension, first trimester; Need for qmjldfawbl-xmewxqk-opk tussis (Tdap) vaccine; History of laminectomy; Need for prophylactic immunotherapy Allergies No known active allergiesdocumented as of this encounter (statuses as of 11/27/2023) Medications Medication Sig Dispensed Refills Start Date End Date Status LORazepam 0.5 MG Oral Tablet (Ativan)Indication s:GILMAR (generalized anxiety disorder),Moderate episode of recurrent major depressive disorder (HCC) Take 1 Tablet by mouth 3 times a day as needed for Anxiety. 15 Tablet 11/21/2022 Active Additional Information Patient not taking.Reported on 07/09/2023 Triamcinolone Acetonide 0.1 % External Ointment (Aristocort)Indica tions:Flexural eczema APPLY TOPICALLY TO AFFECTED AREA TWICE A DAY 15 g 5 02/15/2023 Active 28-0.8 MG Oral Tablet Take by mouth. [...] MG Oral Capsule Take by mouth. Active Hospital, Clinic, or Other Facility Administered Medication Ordered Dose Route Frequency Start Date End Date Status rho d immune globulin (Rhogam) inj 300 mcgIndications:Rh negative status during in third trimester 300 mcg IM ONCE 11/27/2023 11/27/2023 Discontin ued Rho D Immune Globulin (Rhophylac) inj 300 mcgIndications:Rh negative status during in third trimester 300 mcg IM ONCE 11/27/2023 11/27/2023 Ended documented as of this encounter (statuses as of 11/27/2023) Active Problems Problem Noted Date Diagnosed Date History of laminectomy 11/27/2023 Maternal chronic hypertension, first trimester 0 07/19/2023 Overview: Obtain baseline lab work ARIES (if not already done) with assessment of proteinuria (24-hour urine protein or jflxxfz-ju-oidtyblxyk ratio) and CBC, serum AST/ALT/creatinine. If patient [...] Plan: BP Readings from Last 5 Encounters: 11/06/23 126/84 10/09/23 132/80 09/07/23 134/82 08/08/23 124/78 07/11/23 130/78 Titrate medication to maintain goal BP < 140/90. High-risk 07/19/2023 Rh negative status during 07/12/2023 Kidney disease in 07/11/2023 Overview: Follows with Nephrology. Switched from losartan to amlodipine in February due to plans for . Kidney function stable. Patient had preconception counseling with [facility] licensed genetic counselor earlier this year. [...] indicated. H/O laminectomy 07/11/2023 Overview: Laminectomy in [place] in 2011. Will need anesthesia consult Last Assessment & Plan: Recommend anesthesia consult [...] as of this encounter (statuses as of 11/27/2023) Resolved Problems Problem Noted Date Diagnosed Date Resolved Date Supervision of normal first , antepartum 07/11/2023 10/09/2023 documented as of this encounter (statuses as of 11/27/2023) Immunizations Name Administration Dates Next Due Seasonal [...] money to get more. Never true 09/25/2023 [place] Depression Scale Answer Date Recorded [place] Depression Scale Total 5 07/11/2023 The thought [...] No 09/25/2023 Does the household have a [facility] source of income? (Household - for ages [...] Sign Reading Time Taken Comments Blood Pressure 134/88 11/27/2023 8:56 AM EDT Pulse - - Temperature - - Respiratory Rate - - Oxygen Saturation - - Inhaled Oxygen Concentration - - Weight 78.9 kg (174 lb) 11/27/2023 8:56 AM EDT Height 165.1 cm (5' 5") 11/27/2023 8:56 AM EDT Body Mass Index 28.96 11/27/2023 8:56 AM EDT documented in this encounter Progress Notes * Genevieve Dunlap CMA - 11/27/2023 9:40 AM EDT Patient here for TDAP injection. Patient doing well no complaints. Injection given IM as ordered. Patient tolerated well. Patient to follow up as directed. Patient instructed to call if any complications. Patient verbalized understanding of instructions given and her follow up appt for ZARA Injection site: Left Deltoid Medication Source: Dispensed stock medication Patient here for Rhogam injection. Patient doing well no complaints. Injection given IM as ordered.Patient tolerated well. Patient to follow up as directed. Patient instructed to call if any complications. Patient verbalized understanding of instructions given and her follow up appt for ZARA Injection site: Right Gluteus Medication Source: Dispensed stock medication * Gail Sparks CRNP - 11/27/2023 8:57 AM EDT 28w0d Completing labs, RhoGAM today. Following with MFM and nephrology. BP stable. Anesthesia consult ordered due to hx of laminectomy, nursing to help schedule. Working w/psychiatry, plans to increase Prozac dose. No epigastric pain, vision changes. Some HAs, respond well to Tylenol. Will recheck urine P/C ratio. Discussed upcoming NSTs. Encouraged childbirth classes. 2 week return ROBERTO Muñiz documented in this encounter Nursing Notes * Ivonne Winkler LPN - 11/27/2023 8:58 AM EDT 28w0d Denies concerns Completing labs today Tdap and rhogam Will schedule anesthesia consult today documented in this encounter Plan of Treatment Upcoming Encounters Date Type Department Care Team (Late st Contact Info) Description 12/06/2023 8:00 AM EDT Imaging Maternal Medicine ImagingShawn [address] [place] [phone] 12/11/2023 1:45 PM EST Office Visit Gynecology/Obstetrics Garrett Abraham [address] [place] [address] Gail Sparks CRNP [address] [place] [address] 12/26/2023 9:15 AM EST Office Visit Gynecology/Obstetrics Garrett Abraham [address] [place] [address] Liliana Archer CRNP [address] [place] [address] Jarad, Non Stress Tests Shawn [address] [place] [address] 01/01/2024 8:45 AM EST [facility] Crystal Cee [address] [place] [address] [address] [place] [address] 01/02/2024 2:30 PM EST Office Visit Gynecology/Obstetrics Garrett Abraham [address] [place] [address] Rudi Landry MD [address] [place] [address] Jarad, Non Stress Tests Shawn [address] [place] [address] 01/09/2024 2:30 PM EST Office Visit Gynecology/Obstetrics Garrett Abraham [address] [place] [address] Liliana Archer CRNP [address] [place] [address] Jarad, Non Stress Tests Shawn [address] [place] [address] 01/16/2024 2:30 PM EST Office Visit Gynecology/Obstetrics Garrett Andrades [address] [place] [address] Liliana Archer CRNP [address] [place] [address] Abraham Non Stress Tests Shawn [address] [place] [address] 01/23/2024 2:30 PM EST Office Visit Gynecology/Obstetrics Garrett Abraham [address] [place] [address] Liliana Archer CRNP [address] [place] [address] Jarad Non Stress Tests Shawn [address] [place] [address] 01/31/2024 8:00 AM EST Imaging Maternal Medicine Imaging, Shawn [address] [place], [place] [id number] 01/31/2024 9:15 AM EST Office Visit Gynecology/Obstetrics Garrett Abraham [address] [place] [address] Rubia De La Cruz PA-C [address] [place] [address] [place] [address] 02/05/2024 11:00 AM EST Office Visit Gynecology/Obstetrics Garrett Andrades [address] [place] [address] Gail Sparks CRNP [address] [place], [place] [address] Abraham, Non Stress Tests Shawn [address] [place] [address] 02/13/2024 2:30 PM EST Office Visit Gynecology/Obstetrics Garrett Abraham [address] [place] [address] Liliana Archer CRNP [address] [place] [address] Jarad, Non Stress Tests Shawn [address] [place] [address] 05/26/2024 3:20 PM EDT Office Visit [facility] [address] [place] [phone] Chuyita Villegas MD [address] [place] [address] Pending Results Name Type Priority Associated Diagnoses Date /Time PROTEIN/ CREATININE RATIO, URINE Lab Routine High-risk in third trimester Maternal chronic hypertension, first trimester 11/27/2023 10:08 AM EDT Scheduled Orders Name Type Priority Associated Diagnoses Orde r Schedule PROTEIN/ CREATININE RATIO, URINE Lab Routine High-risk in third trimester Maternal chronic hypertension, first trimester Expected: 11/27/2023 (Approximate), Expires: 11/26/2024 Scheduled Referrals Name Type Priority Associated Diagnoses Orde r Schedule ANESTHESIOLOGY REFERRAL OP Referral Within 10 days (routine) History of laminectomy Ordered: 11/27/2023 Health Maintenance Due Date Last Done Comments Depression Monitoring 2002 HPV (Gardasil) Vaccine (2 - 3-dose series) 07/23/2008 06/25/2008 COVID-19 Vaccine ( season) 2023 02/08/2021, 05/05/2020, 04/07/2020 GFR 07/10/2024 07/11/2023, 02/05, 05/12/2022, Additional history exists Pap Smear 03/21/2026 03/21/2023 [...] as of this encounter Visit Diagnoses Diagnosis High-risk in third trimester- Primary Medical marijuana use Encounter for long-term (current) use of other medications 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 trimester Anxiety during Rh negative status during in third trimester Maternal chronic hypertension, first trimester Need for uzmhzooelh-eirvaru-ekwnvtmwb (Tdap) vaccine Need for prophylactic vaccination with combined iawtjgdeca-gnflarp-mqmwprcjm (DTP) vaccine History of laminectomy Other postprocedural status Need for prophylactic immunotherapy documented in this encounter Administered Medications Inactive Administered Medications - up to 3 most recent administrations Medication Order MAR Action Action Date Dose Rate Site Rho D Immune Globulin (Rhophylac) inj 300 mcg 300 mcg, Intramuscular, ONCE, On Sun11/27/23 at 1030, For 1 dose, Do not administer until type and screen has been collected! 1 MCG = 5 INTERNATIONAL UNITS Given 11/27/2023 9:55 AM EDT 300 mcg Ventrogluteal Right documented in this encounter Care Teams Cook Pressure Relationship Specialty Start Date End Date Chuyita Villegas MD [address] [place] [address] PCP - General Family Medicine 01/11/22 documented as of this encounter
--- OUTSIDE RECORDS SUMMARY | 2024-01-31 22:33 | External Medical Summary | Summary of Care ---
Author Name Unknown Organization [facility] Address [address] [place] [address] Phone [phone] Care Team Providers Care Edge Beader Name Role Phone Chuyita Villegas MD Primary Care Provid er Reason for Visit * Reason Comments Blood Pressure Check Encounter Details Date Type Department Care Team ([facility] st Contact Info) Description 12/13/2023 9:00 AM EST Nurse Only Gynecology/Obstetrics [facility] [address] [place] [address] , Nurse Obgyn Injection 132 [place] [address] Blood Pressure Check Allergies No known active [...] assessment of proteinuria (24-hour urine protein or anxokat-oz-ehcwjzkadt ratio) and CBC, serum AST/ALT/creatinine. If patient [...] function stable. Patient had preconception counseling with [facility] licensed genetic counselor earlier this year. [...] indicated. H/O laminectomy 07/11/2023 Overview: Laminectomy in [place] in 2011. Will need anesthesia consult. 28 [...] money to get more. Never true 09/25/2023 [place] Depression Scale Answer Date Recorded [place] Depression Scale Total 5 07/11/2023 The thought [...] Sign Reading Time Taken Comments Blood Pressure 128/88 12/13/2023 9:25 AM EST Pulse - - Temperature - - Respiratory Rate - - Oxygen Saturation - - Inhaled Oxygen Concentration - - Weight - - Height - - Body Mass Index - - documented in this encounter Nursing Notes * Genevieve Dunlap CMA - 12/13/2023 9:48 AM EST Patient present today for BP check. Advised to come into office today by Gail Sparks. BP was 128/88. Urine dip was WNL. documented in this encounter Plan of Treatment Upcoming Encounters Date Type Department Care Team (Late st Contact Info) Description 12/26/2023 9:15 AM EST Office Visit Gynecology/Obstetrics Garrett Abraham [address] [place] [address] Liliana Archer CRNP [address] [place] [address] Abraham, Non Stress Tests Shawn [address] [place] [address] 01/01/2024 8:45 AM EST [facility] Crystal Cee [address] [place] [address] [place] [address] 01/02/2024 2:30 PM EST Office Visit Gynecology/Obstetrics [facility] [address] [place] [address] Rudi Landry MD [address] [place] [address] Jarad Non Stress Tests Shawn [address] [place] [address] 01/09/2024 2:30 PM EST Office Visit Gynecology/Obstetrics Garrett Andrades [address] [place] [address] Liliana Archer CRNP [address] [place] [address] Jarad Non Stress Tests Shawn [address] [place] [address] 01/16/2024 2:30 PM EST Office Visit Gynecology/Obstetrics Garrett Andrades [address] [place] [address] Liliana Archer CRNP [address] [place] [address] Jarad Non Stress Tests Shawn [address] [place] [address] 01/23/2024 2:30 PM EST Office Visit Gynecology/Obstetrics [facility] [address] [place] [address] Liliana Archer CRNP [address] [place] [address] Jarad, Non Stress Tests Shawn [address] [place] [address] 01/31/2024 8:00 AM EST Imaging [facility], Shawn Abraham [address] [place] [address] 01/31/2024 9:15 AM EST Office Visit Gynecology/Obstetrics Garrett Abraham [address] [place] [address] Rubia De La Cruz PA-C [address] [place] [address] 02/05/2024 11:00 AM EST Office Visit Gynecology/Obstetrics Garrett Abraham [address] [place] [address] Gail Sparks CRNP [address] [place] [address] Jarad Non Stress Tests Shawn [address] [place] [address] 02/13/2024 2:30 PM EST Office Visit Gynecology/Obstetrics Garrett Abraham [address] [place] [address] Liliana Archer CRNP [address] [place] [address] Jarad Non Stress Tests Shawn [address] [place] [address] 05/26/2024 3:20 PM EDT Office Visit [facility] [address] [facility] [place] [place] [address] Chuyita Villegas MD [address] [place] [address] Health Maintenance Due Date Last Done Comments [...] Not on filedocumented as of this encounter Procedures Procedure Name Priority Date/Time Associated Diagnosis Comments URINALYSIS OBSTETRICS, POINT OF CARE Routine 12/13/2023 9:23 AM EST Maternal chronic hypertension High-risk documented in this encounter Results * (ABNORMAL) URINALYSIS OBSTETRICS, POINT OF CARE (12/13/2023 9:23 AM EST) Color, Urine Yellow Light Yellow, Yellow 12/13/2023 9:26 AM EST [facility] [place] [facility] Clarity, Urine Clear Clear 12/13/2023 9:26 AM EST [facility] [place] [facility] Glucose, Urine Negative Negative mg/dL 12/13/2023 9:26 AM EST [facility] [place] [facility] Bilirubin, Urine Negative Negative 12/13/2023 9:26 AM EST [facility] [place] [facility] Ketone, Urine Negative Negative mg/dL 12/13/2023 9:26 AM EST [facility] [place] [facility] Specific [place], Urine 1.015 1.003 - 1.030 12/13/2023 9:26 AM EST [facility] [place] [facility] Blood, Urine Trace-intact (A) Negative 12/13/2023 9:26 AM EST [facility] [place] [facility] pH, Urine 7.5 5.0, 5.5, 6.0, 6.5, 7.0, 7.5 units 12/13/2023 9:26 AM EST [facility] [place] [facility] Protein, Urine Negative Negative mg/dL 12/13/2023 9:26 AM EST [facility] [place] [facility] Urobilinogen, Urine 0.2 0.2, 1.0 mg/dL 12/13/2023 9:26 AM EST [facility] [place] [facility] Nitrite, Urine Negative Negative 12/13/2023 9:26 AM EST [facility] [place] [facility] Esterase, Urine Negative Negative 12/13/2023 9:26 AM EST [facility] [place] [facility] Urine 12/13/2023 9:23 AM EST 12/13/2023 9:26 AM EST Rudi Landry MD LAB POINT OF CARE TE ST DOCKED DEVICE UNSOLICITED RESULTS [facility] [place] [facility] [address] [place] [address] documented in this encounter Visit Diagnoses Diagnosis High-risk - Primary Unspecified high-risk Medical marijuana use Encounter for long-term (current) use of other medications Kidney disease in Unspecified renal disease in , unspecified as to episode of care Anxiety during H/O laminectomy Other postprocedural status Rh negative status during Rhesus isoimmunization unspecified as to episode of care in Maternal chronic hypertension Benign essential hypertension complicating , childbirth, and the puerperium, unspecified as to episode of care documented in this encounter Care Teams Edge Beader Relationship Specialty Start Date End Date Chuyita Villegas MD [address] [place] [address] PCP - General Family Medicine 01/11/22 documented as of this encounter
--- OUTSIDE RECORDS SUMMARY | 2024-01-31 22:33 | External Medical Summary | Summary of Care ---
Author Name Unknown Organization [facility] Address [address] [place] [address] Phone [phone] Care Team Providers Care Sealing Machine Operator Name Role Phone Chuyita Villegas MD Primary Care Provid er Reason for Referral * Evaluate & Treat - Unlimited Visits (Within 10 days (routine)) - Pending Review Specialty Diagnoses / Procedures Referred By Maryann purvis Referred To Contact Anesthesiology Diagnoses History of laminectomy Gail Sparks CRNP [address] [place] [id number] Referral ID Status Reason Start Date Expiration Date Visits Requested Visits Authorized [id number] Pending Review Specialty Services Required [phone] Question Answer Referral Priority Within 10 days (routine) Where should this appointment be scheduled? External - [facility] Comments Patient is , Estimated Date of Delivery: 02/19/24 Hx laminectomy Reason for Visit * Reason Comments Return Visit Encounter Details Date Type Department Care Team (Late st Contact Info) Description 11/27/2023 8:30 AM EDT Office Visit Gynecology/Obstetri denilson Abraham [address] [place] [address] Gail Sparks CRNP [address] [place] [address] High-risk in third trimester*; Medical marijuana use; 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 trimester; Anxiety during ; Rh negative status during in third trimester; Maternal chronic hypertension, first trimester; Need for kdggddocbi-tqqgkwc-xqc tussis (Tdap) vaccine; History of laminectomy; Need [...] assessment of proteinuria (24-hour urine protein or ogjrgns-ki-tjbvcytcxo ratio) and CBC, serum AST/ALT/creatinine. If patient [...] function stable. Patient had preconception counseling with [facility] licensed genetic counselor earlier this year. [...] indicated. H/O laminectomy 07/11/2023 Overview: Laminectomy in [place] in 2011. Will need anesthesia consult Last [...] money to get more. Never true 09/25/2023 [place] Depression Scale Answer Date Recorded [place] Depression Scale Total 5 07/11/2023 The thought [...] No 09/25/2023 Does the household have a [facility] source of income? (Household - for ages [...] Medicine ImagingShawn [address] [place] [phone] 12/11/2023 1:45 PM EST Office Visit Gynecology/Obstetrics Garrett Abraham [address] [place] [address] Gail Sparks CRNP [address] [place] [address] 12/26/2023 9:15 AM EST Office Visit Gynecology/Obstetrics Garrett Abraham [address] [place] [address] Liliana Archer CRNP [address] [place] [address] Jarad, Non Stress Tests Shawn [address] [place] [address] 01/01/2024 8:45 AM EST [facility] Crystal Cee [address] [place] [address] Radha [address] [place] [address] 01/02/2024 2:30 PM EST Office Visit Gynecology/Obstetrics Garrett Abraham [address] [place] [address] Rudi Landry MD [address] [place] [address] Jarad, Non Stress Tests Shawn [address] [place] [address] 01/09/2024 2:30 PM EST Office Visit Gynecology/Obstetrics Garrett Abraham [address] [place] [address] Liliana Archer CRNP [address] [place] [address] Jarad, Non Stress Tests Shawn [address] [place] [address] 01/16/2024 2:30 PM EST Office Visit Gynecology/Obstetrics Garrett Andrades [address] [place] [address] Liliana Archer CRNP [address] [place] [address] Abraham Non Stress Tests Shawn [address] [place] [address] 01/23/2024 2:30 PM EST Office Visit Gynecology/Obstetrics Garrett Abraham [address] [place] [address] Liliana Archer CRNP [address] [place] [address] Jarad Non Stress Tests Shawn [address] [place] [address] 01/31/2024 8:00 AM EST Imaging [facility], Shawn [address] [place], [place] [phone] 01/31/2024 9:15 AM EST Office Visit Gynecology/Obstetrics Garrett Abraham [address] [place] [address] Rubia De La Cruz PA-C [address] [place] [address] [place] [address] 02/05/2024 11:00 AM EST Office Visit Gynecology/Obstetrics Garrett Andrades [address] [place] [address] Gail Sparks CRNP [address] [place], [place] [address] Abraham, Non Stress Tests Shawn [address] [place] [address] 02/13/2024 2:30 PM EST Office Visit Gynecology/Obstetrics Garrett Abraham [address] [place] [address] Liliana Archer CRNP [address] [place] [address] Jarad, Non Stress Tests Shawn [address] [place] [address] 05/26/2024 3:20 PM EDT Office Visit [facility] [address] [place] [phone] Chuyita Villegas MD [address] [place] [address] Pending Results Name Type Priority Associated Diagnoses [...] Maternal chronic hypertension, first trimester Need for ihwhjxmjzz-mmqcnrl-ndjfvxyia (Tdap) vaccine Need for prophylactic vaccination with combined zsvbvichtp-hnddxim-oskyqhuvr (DTP) vaccine History of laminectomy Other postprocedural [...] Right documented in this encounter Care Teams Sealing Machine Operator Relationship Specialty Start Date End Date Chuyita Villegas MD [address] [place] [address] PCP - General Family Medicine 01/11/22 documented as of this encounter
--- OUTSIDE RECORDS SUMMARY | 2024-01-31 22:33 | External Medical Summary | Summary of Care ---
Author Name Unknown Organization [facility] Address [address] [place] [address] Phone [phone] Care Team Providers Care Theatrical Variety Agent Name Role Phone Cliff Villegas MD Primary Care Provid er Reason for Visit * Reason Comments eRx-Medication Refill Encounter Details Date Type Department Care Team ([facility] st Contact Info) Description 11/30/2023 Refill [facility] [address] [place] [address] Cliff Villegas MD [address] [place] [address] Flexural eczema Allergies No known active allergiesdocumented as of this encounter (statuses as of 12/03/2023) Medications Medication Sig Dispensed Refills Start Date End Date Status LORazepam 0.5 MG Oral Tablet (Ativan)Indicati ons:GILMAR [...] Active FLUoxetine HCl 10 MG Oral Capsule (PROzac)Indicati ons:GILMAR (generalized anxiety disorder),Modera te episode of recurrent major depressive disorder (HCC) Take 1 capsule by mouth once daily. Add to 20 mg capsule for 30 mg total daily dose. 90 Capsule 1 10/15/2023 Active amLODIPine Besylate 5 MG Oral Tablet (Norvasc)Indicat ions:Polycystic kidney disease,HTN, goal below 130/80 Take 1 Tablet by mouth in the morning. 90 Tablet 1 10/22/2023 Active Aspirin 81 MG Oral Capsule Take by mouth. Active Triamcinolone Acetonide 0.1 % External Ointment (Aristocort)Chelly cations:Flexural eczema Apply topically to affected area twice daily. 15 g 4 12/03/2023 Active Triamcinolone Acetonide 0.1 % External Ointment (Aristocort)Chelly cations:Flexural eczema APPLY TOPICALLY TO AFFECTED AREA TWICE A DAY 15 g 5 02/15/2023 Discontinued documented as of this encounter (statuses as of 12/03/2023) Active Problems Problem Noted Date Diagnosed Date History of laminectomy 11/27/2023 Maternal chronic hypertension, first trimester 0 07/19/2023 Overview: Obtain baseline lab work ARIES (if not already done) with assessment of proteinuria (24-hour urine protein or krlsczx-bx-anidhonxej ratio) and CBC, serum AST/ALT/creatinine. If patient [...] function stable. Patient had preconception counseling with [facility] licensed genetic counselor earlier this year. [...] indicated. H/O laminectomy 07/11/2023 Overview: Laminectomy in [place] in 2011. Will need anesthesia consult. 28 [...] as of this encounter (statuses as of 12/03/2023) Resolved Problems Problem Noted Date Diagnosed Date Resolved Date Supervision of normal first , antepartum 07/11/2023 10/09/2023 documented as of this encounter (statuses as of 12/03/2023) Immunizations Name Administration Dates Next Due Seasonal [...] money to get more. Never true 09/25/2023 [place] Depression Scale Answer Date Recorded [place] Depression Scale Total 5 07/11/2023 The thought [...] encounter Miscellaneous Notes * Telephone Encounter - Cliff Villegas MD - 12/03/2023 12:29 PM EDT Signed Prescriptions: Disp Refills Triamcinolone Acetonide 0.1 % External Oin*15 g 4 Sig: Apply topically to affected area twice daily. Authorizing Provider: CLIFF VILLEGAS * Telephone Encounter - Jahaira Segura LPN - 11/30/2023 2:41 PM EDTPending Prescriptions: Disp Refills Triamcinolone Acetonide 0.1 % External Oin*15 g 4 Sig: Apply topically to affected area twice daily. * Telephone Encounter - Walt Seals - 11/30/2023 1:37 PM EDTPending Prescriptions: Disp Refills Triamcinolone Acetonide 0.1 % External Oin*15 g 4 Sig: Apply topically to affected area twice daily. documented in this encounter Plan of Treatment Upcoming Encounters Date Type Department Care Team (Late st Contact Info) Description 12/06/2023 8:00 AM EDT Imaging Maternal Medicine Shawn Freedman [address] [place] [phone] 12/11/2023 1:45 PM EST Office Visit Gynecology/Obstetrics Garrett Abraham [address] [place] [address] Gail Sparks CRNP [address] [place] [address] 12/26/2023 9:15 AM EST Office Visit Gynecology/Obstetrics Garrett Abraham [address] [place] [address] Liliana Archer CRNP [address] [place] [address] Gail Abraham Stress Tests Shawn [address] [place] [address] 01/01/2024 8:45 AM EST Imaging Maternal Medicine [facility] [address] [place] [place] [address] 01/02/2024 2:30 PM EST Office Visit Gynecology/Obstetrics [facility] [address] [place] [address] Rudi Landry MD [address] [place] [address] Abraham, Non Stress Tests Shawn [address] [place] [address] 01/09/2024 2:30 PM EST Office Visit Gynecology/Obstetrics [facility] [address] [place] [address] Liliana Archer CRNP [address] [place] [address] Jarad Non Stress Tests Shawn [address] [place] [address] 01/16/2024 2:30 PM EST Office Visit Gynecology/Obstetrics Sean'suly Andrades [address] [place] [address] Liliana Archer CRNP [address] [place] [address] Jarad Non Stress Tests Shawn [address] [place] [address] 01/23/2024 2:30 PM EST Office Visit Gynecology/Obstetrics [facility] [address] [place] [address] Liliana Archer CRNP [address] [place] [address] Jarad, Non Stress Tests Shawn [address] [place] [address] 01/31/2024 8:00 AM EST Imaging [facility], Shawn Abraham [address] [place], [place] [id number] 01/31/2024 9:15 AM EST Office Visit Gynecology/Obstetrics Garrett Abraham [address] [place], [place] [address] Rubia De La Cruz PA-C [address] [place] [address] [place] [address] 02/05/2024 11:00 AM EST Office Visit Gynecology/Obstetrics Garrett Abraham [address] [place] [address] Gail Sparks CRNP [address] [place] [address] Gail Abraham Stress Tests Shawn [address] [place] [address] 02/13/2024 2:30 PM EST Office Visit Gynecology/Obstetrics Garrett Abraham [address] [place] [address] Liliana Archer CRNP [address] [place], [place] [address] Jarad Non Stress Tests Shawn [address] [place], [place] [address] 05/26/2024 3:20 PM EDT Office Visit [facility] [address] [place] [phone] Cliff Villegas MD [address] [place] [address] Health Maintenance Due Date Last Done Comments Depression Monitoring 2002 HPV (Gardasil) Vaccine (2 - 3-dose series) 07/23/2008 06/25/2008 COVID-19 Vaccine ( season) 2023 02/08/2021, 05/05/2020, 04/07/2020 GFR 11/26/2024 11/27/2023, 06/06/2023, 02/16/2023, Additional history exists Pap Smear 03/21/2026 [...] as of this encounter Visit Diagnoses Diagnosis Flexural eczema Other atopic dermatitis and related conditions documented in this encounter Care Teams Theatrical Variety Agent Relationship Specialty Start Date End Date Cliff Villegas MD [address] [place] [address] PCP - General Family Medicine 01/11/22 documented as of this encounter
--- OUTSIDE RECORDS SUMMARY | 2024-01-31 22:33 | External Medical Summary | Summary of Care ---
Author Name Unknown Organization [facility] Address [address] [facility] [place] [address] Phone [phone] Care Team Providers Care Dispatcher Service Or Work Name Role Phone Chuyita Villegas MD Primary Care Provid er Encounter Details Date Type Department Care Team ([facility] st Contact Info) Description 11/27/2023 Telephone Gynecology/Obstetrics [facility] [address] [place] [address] BackerGail CRNP [address] [facility] [place] [address] Allergies No known active allergiesdocumented as of [...] MG Oral Capsule Take by mouth. Active documented as of this encounter (statuses as of 11/27/2023) Active Problems Problem Noted Date Diagnosed Date History of laminectomy 11/27/2023 Maternal chronic hypertension, first trimester 0 07/19/2023 Overview: Obtain baseline lab work ARIES (if not already done) with assessment of proteinuria (24-hour urine protein or bxzdwel-iz-sggdloikzz ratio) and CBC, serum AST/ALT/creatinine. If patient [...] function stable. Patient had preconception counseling with [facility] licensed genetic counselor earlier this year. Declined [...] indicated. H/O laminectomy 07/11/2023 Overview: Laminectomy in [place] in 2011. Will need anesthesia consult. 28 [...] money to get more. Never true 09/25/2023 [place] Depression Scale Answer Date Recorded [place] Depression Scale Total 5 07/11/2023 The thought [...] encounter Miscellaneous Notes * Telephone Encounter - Gail Sparks CRNP - 11/27/2023 9:02 AM EDT Please schedule pt with anesthesia at [facility], referral was placed. ROBERTO Muñiz documented in this encounter Plan of Treatment Upcoming Encounters Date Type Department Care Team (Late st Contact Info) Description 12/06/2023 8:00 AM EDT Imaging [facility], Shawn [address] [place] [phone] 12/11/2023 1:45 PM EST Office Visit Gynecology/Obstetrics Garrett [address] [place] [address] Gail Sparks CRNP [address] [place] [address] 12/26/2023 9:15 AM EST Office Visit Gynecology/Obstetrics Garrett Abraham [address] [place] [address] Liliana Archer CRNP [address] [place] [address] Jarad Non Stress Tests Shawn [address] [place] [address] 01/01/2024 8:45 AM EST [facility] Crystal Cee [address] [place] [address] [address] [place] [address] 01/02/2024 2:30 PM EST Office Visit Gynecology/Obstetrics [facility] [address] [place] [address] Rudi Landry MD [address] [place] [address] Abraham, Non Stress Tests Shawn [address] [place] [address] 01/09/2024 2:30 PM EST Office Visit Gynecology/Obstetrics [facility] [address] [place] [address] Liliana Archer CRNP [address] [place] [address] Abraham, Non Stress Tests Shawn [address] [place] [address] 01/16/2024 2:30 PM EST Office Visit Gynecology/Obstetrics [facility] [address] [place] [address] Liliana Archer CRNP [address] [place] [address] Abraham, Non Stress Tests Shawn [address] [place] [address] 01/23/2024 2:30 PM EST Office Visit Gynecology/Obstetrics [facility] [address] [place] [address] Liliana Archer CRNP [address] [place] [address] Abraham, Non Stress Tests Shawn [address] [place] [address] 01/31/2024 8:00 AM EST Imaging [facility], [place] [address] 01/31/2024 9:15 AM EST Office Visit Gynecology/Obstetrics Garrett Abraham [address] [place] [address] Rubia De La Cruz PA-C [address] [place], [place] [address] [address] 02/05/2024 11:00 AM EST Office Visit Gynecology/Obstetrics [facility] [address] [place] [address] Gail Sparks CRNP [address] [place], [place] [address] Jarad Non Stress Tests [place] [address] 02/13/2024 2:30 PM EST Office Visit Gynecology/Obstetrics Garrett Abraham [address] [place] [address] Liliana Archer CRNP [address] [place] [address] Jarad Non Stress Tests Shawn [address] [place] [address] 05/26/2024 3:20 PM EDT Office Visit [facility] [address] [facility], [place] [id number] Chuyita Villegas MD [address] [facility], [place] [address] Health Maintenance Due Date Last Done Comments [...] filedocumented as of this encounter Care Teams Dispatcher Service Or Work Relationship Specialty Start Date End Date Chuyita Villegas MD [address] [place] [address] PCP - General Family Medicine 01/11/22 documented as of this encounter
--- OUTSIDE RECORDS SUMMARY | 2024-01-31 22:33 | External Medical Summary ---
Author Name Unknown Address Unknown Organization [id number]:LABORATORY [facility] [address] - [address] [place] [id number] Laboratory Report Ordering Provider Test Date Status BRIANA DOW 12/13/2023 09:23:00 Final Observation Date Value Abnormality Reference (Units ) Status Color of Urine by Auto 12/13/2023 09:23:00 Yellow Light Yellow, Yellow Final Clarity, Urine 12/13/2023 09:23:00 Clear Clear Final Glucose [Mass/volume] in Urine by Automated test strip 12/13/2023 09:23:00 Negative Negative (mg/dL) Final Bilirubin.total [Presence] in Urine by Automated test strip 12/13/2023 09:23:00 Negative Negative Final Ketones [Mass/volume] in Urine by Automated test strip 12/13/2023 09:23:00 Negative Negative (mg/dL) Final Specific gravity, Urine 12/13/2023 09:23:00 1.015 1.003-1.030 Final Hemoglobin [Presence] in Urine by Automated test strip 12/13/2023 09:23:00 Trace-intact Abnormal Negative Final pH, Urine 12/13/2023 09:23:00 7.5 5.0, 5.5, 6.0, 6.5, 7.0, 7.5 (units) Final Protein [Mass/volume] in Urine by Automated test strip 12/13/2023 09:23:00 Negative Negative (mg/dL) Final Urobilinogen, Urine 12/13/2023 09:23:00 0.2 0.2, 1.0 (mg/dL) Final Nitrite [Presence] in Urine by Automated test strip 12/13/2023 09:23:00 Negative Negative Final Leukocyte esterase [Presence] in Urine by Automated test strip 12/13/2023 09:23:00 Negative Negative Final Performing Location LABORATORY [facility] [address] - [address] [place] [id number]
--- OUTSIDE RECORDS SUMMARY | 2024-01-31 22:33 | External Medical Summary | Summary of Care ---
Author Name Unknown Organization [facility] Address [address] [place] [address] Phone [phone] Care Team Providers Care Tax Representative Name Role Phone Chuyita Villegas MD Primary Care Provid er Reason for Visit * Reason Comments Outpatient Testing Encounter Details Date Type Department Care Team ([facility] st Contact Info) Description 11/27/2023 8:30 AM EDT Laboratory Laboratory, [facility] [address] [place] [address] [facility] [address] [place] [address] High-risk in second trimester; Rh negative status during in second trimester Allergies No known active allergiesdocumented as of [...] the morning. 90 Tablet 1 10/22/2023 Active Hospital, Clinic, or Other Facility Administered Medication Ordered Dose Route Frequency Start Date End Date Status rho d immune globulin (Rhogam) inj 300 mcgIndications:Rh negative status during in third trimester 300 mcg IM ONCE 11/27/2023 11/27/2023 Discontin ued documented as of this encounter (statuses as of 11/27/2023) Active Problems Problem Noted Date Diagnosed Date History of laminectomy 11/27/2023 Maternal chronic hypertension, first trimester 0 07/19/2023 Overview: Obtain baseline lab work ARIES (if not already done) with assessment of proteinuria (24-hour urine protein or rtqrbwi-kz-qbxtulhcub ratio) and CBC, serum AST/ALT/creatinine. If patient [...] function stable. Patient had preconception counseling with [facility] licensed genetic counselor earlier this year. [...] indicated. H/O laminectomy 07/11/2023 Overview: Laminectomy in [place] in 2011. Will need anesthesia consult Last [...] money to get more. Never true 09/25/2023 [place] Depression Scale Answer Date Recorded [place] Depression Scale Total 5 07/11/2023 The thought [...] 8:00 AM EDT Imaging Maternal Medicine Imaging, [facility] [address] [facility] [place] [address] 01/01/2024 8:45 AM EST Imaging Maternal Medicine [facility] Crytsal Cee [address] [place] [address] [address] [place] [address] 01/31/2024 8:00 AM EST Imaging Maternal Medicine [address] [place] [address] 05/26/2024 3:20 PM EDT Office Visit [place] [address] [place] [address] Chuyita Villegas MD [address] [place] [address] Pending Results Name Type Priority Associated Diagnoses Date /Time 50-G GESTATIONAL GLUCOSE, 1 HOUR Lab Routine High-risk in second trimester 11/27/2023 9:35 AM EDT CBC WITH WBC DIFFERENTIAL AND ANEMIA REFLEX WORKUP Lab Routine High-risk in second trimester 11/27/2023 9:35 AM EDT SYPHILIS ANTIBODY SCREEN WITH REFLEX TO RPR Lab Routine High-risk in second trimester 11/27/2023 9:35 AM EDT TYPE AND SCREEN Lab Routine Rh negative status during in second trimester High-risk in second trimester 11/27/2023 9:35 AM EDT ANEMIA CBC Lab Routine High-risk in second trimester 11/27/2023 9:35 AM EDT DIFFERENTIAL, AUTOMATED Lab Routine High-risk in second trimester 11/27/2023 9:35 AM EDT ANEMIA REFLEX CHEMISTRY HOLD Lab Routine High-risk in second trimester 11/27/2023 9:35 AM EDT SYPHILIS ANTIBODY SCREEN Lab Routine High-risk in second trimester 11/27/2023 9:35 AM EDT Health Maintenance Due Date Last Done Comments [...] this encounter Visit Diagnoses Diagnosis High-risk in second trimester Rh negative status during in second trimester documented in this encounter Care Teams Tax Representative Relationship Specialty Start Date End Date Chuyita Villegas MD [address] [place] [address] PCP - General Family Medicine 01/11/22 documented as of this encounter
--- OUTSIDE RECORDS SUMMARY | 2024-01-31 22:33 | External Medical Summary | Summary of Care ---
Author Name Unknown Organization [facility] Address [address] [place] [address] Phone [phone] Care Team Providers Care Hand Sizer Name Role Phone Chuyita Villegas MD Primary Care Provid er Reason for Visit * Reason Comments Return Visit Encounter Details Date Type Department Care Team ([facility] st Contact Info) Description 12/11/2023 1:45 PM EST Office Visit Gynecology/Obstetric s [facility] [address] [facility] [place] [address] Gail Sparks CRNP [address] [place] [facility] [address] High-risk in third trimester*; Medical marijuana use; 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 trimester; Anxiety during ; H/O laminectomy; Rh negative status during in third trimester; Maternal chronic hypertension in third trimester Allergies No known active allergiesdocumented as of this encounter (statuses as of 12/11/2023) Medications Medication Sig Dispensed Refills Start Date [...] as of this encounter (statuses as of 12/11/2023) Active Problems Problem Noted Date Diagnosed Date History of laminectomy 11/27/2023 Maternal chronic hypertension 07/19/2023 Overview: Obtain baseline lab work ARIES (if not already done) with assessment of proteinuria (24-hour urine protein or xngdkcl-wk-vxcbciihik ratio) and CBC, serum AST/ALT/creatinine. If patient [...] Currently stable on amlodipine 5 mg daily. Start 80 mg propranolol 12/11/23 with elevated BP [...] function stable. Patient had preconception counseling with [facility] licensed genetic counselor earlier this [...] indicated. H/O laminectomy 07/11/2023 Overview: Laminectomy in [place] in 2011. Will need anesthesia consult. 28 [...] as of this encounter (statuses as of 12/11/2023) Resolved Problems Problem Noted Date Diagnosed Date Resolved Date Supervision of normal first , antepartum 07/11/2023 10/09/2023 documented as of this encounter (statuses as of 12/11/2023) Immunizations Name Administration Dates Next Due Seasonal [...] money to get more. Never true 09/25/2023 [place] Depression Scale Answer Date Recorded [place] Depression Scale Total 5 07/11/2023 The thought [...] 09/25/2023 Does the household have a re lar source of income? (Household - for ages [...] Sign Reading Time Taken Comments Blood Pressure 136/98 12/11/2023 1:57 PM EST Pulse - - Temperature - - Respiratory Rate - - Oxygen Saturation - - Inhaled Oxygen Concentration - - Weight 80.3 kg (177 lb) 12/11/2023 1:57 PM EST Height 165.1 cm (5' 5") 12/11/2023 1:57 PM EST Body Mass Index 29.45 12/11/2023 1:57 PM EST documented in this encounter Progress Notes * Gail Sparks CRNP - 12/11/2023 2:09 PM EST 30w0d Baby very active. No leaking, bleeding, ctx. Occasional mild HAs, resolve with OTC medication, no worse. No new swelling. Some RUQ discomfort x5 days, not positional. Negative proteinuria, BP up. Will get NST and repeat preE labs today. [place] Text sent to Dr Bearden in nephrology for recommendations regarding any medication changes; recommends propranolol. Rx sent, pt aware. Advised to check BP at home and call office with abnormal readings or new preE symptoms, decreased FM. Return for BP check in 2 days. ASSESSMENT assessment with Non-stress Test completed on 12/11/2023 at 30 weeks gestation for indication of chronic hypertension heart baseline: 130 bpm Variability: Moderate Decelerations: absent Accelerations: present Contractions: Present 1 NST start time: 1510 NST stop time: 1535 NST strip reviewed, interpreted, and approved by OB provider, ROBERTO Muñiz . NST strip stored in clinic storage file documented in this encounter Nursing Notes * Ivonne Winkler LPN - 12/11/2023 1:58 PM EST 30w0d Denies concerns documented in this encounter Plan of Treatment Upcoming Encounters Date Type Department Care Team (Late st Contact Info) Description 12/13/2023 9:00 AM EST Nurse Only Gynecology/Obstetrics Garrett Abraham [address] [place] [address] Gw, Nurse Obgyn Injection [address] [place] [address] 12/26/2023 9:15 AM EST Office Visit Gynecology/Obstetrics Garrett Abraham [address] [place] [address] Liliana Archer CRNP [address] [place] [address] Gail Abraham Stress Tests Shawn [address] [place] [address] 01/01/2024 8:45 AM EST Imaging [facility] Crystal Cee [address] [place] [address] [address] [place] [address] 01/02/2024 2:30 PM EST Office Visit Gynecology/Obstetrics Garrett Abraham [address] [place] [address] Rudi Landry MD [address] [place] [address] Jarad Non Stress Tests Shawn [address] [place] [address] 01/09/2024 2:30 PM EST Office Visit Gynecology/Obstetrics Garrett Andrades [address] [place] [address] Liliana Archer CRNP [address] [place] [address] Jarad Non Stress Tests Shawn [address] [place] [address] 01/16/2024 2:30 PM EST Office Visit Gynecology/Obstetrics Garrett Andrades [address] [place] [address] Liliana Archer CRNP [address] [place] [address] Jarad Non Stress Tests Shawn [address] [place] [address] 01/23/2024 2:30 PM EST Office Visit Gynecology/Obstetrics Garrett Andrades [address] [place] [address] Liliana Archer CRNP [address] [place] [address] Jarad Non Stress Tests Shawn [address] [place] [address] 01/31/2024 8:00 AM EST Imaging Maternal Medicine Imaging, Shawn Abraham [address] [place], [place] [address] 01/31/2024 9:15 AM EST Office Visit Gynecology/Obstetrics Garrett Abraham [address] [place] [address] Rubia De La Cruz PA-C [address] [place] [address] 02/05/2024 11:00 AM EST Office Visit Gynecology/Obstetrics Garrett Abraham [address] [place] [address] Gail Sparks CRNP [address] [place] [address] Gail Abraham Stress Tests Shawn [place] [address] 02/13/2024 2:30 PM EST Office Visit Gynecology/Obstetrics Garrett Abraham [address] [place] [address] Liliana Archer CRNP [address] [place] [address] aGil Abraham Stress Tests [address] [place] [address] 05/26/2024 3:20 PM EDT Office Visit [facility] [address] [facility] [place] [address] Chuyita [facility]legas MD [address] [facility] [address] Pending Results Name Type Priority Associated Diagnoses Date /Time PROTEIN/ CREATININE RATIO, URINE Lab Routine 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 trimester Maternal chronic hypertension in third trimester 12/11/2023 2:36 PM EST AST Lab Routine 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 trimester Maternal chronic hypertension in third trimester 12/11/2023 2:45 PM EST CREATININE Lab Routine 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 trimester Maternal chronic hypertension in third trimester 12/11/2023 2:45 PM EST Scheduled Orders Name Type Priority Associated Diagnoses Orde r Schedule PROTEIN/ CREATININE RATIO, URINE Lab Routine 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 trimester Maternal chronic hypertension in third trimester Expected: 12/11/2023 (Approximate), Expires: 12/10/2024 AST Lab Routine 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 trimester Maternal chronic hypertension in third trimester Expected: 12/11/2023, Expires: 12/10/2024 CREATININE Lab Routine 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 trimester Maternal chronic hypertension in third trimester Expected: 12/11/2023, Expires: 12/10/2024 Health Maintenance Due Date Last Done Comments Depression Monitoring 2002 HPV (Gardasil) Vaccine (2 - 3-dose series) 07/23/2008 06/25/2008 COVID-19 Vaccine ( season) 2023 02/08/2021, 05/05/2020, 04/07/2020 GFR 11/26/2024 11/27/2023, 0606/2023, 02/16/2023, Additional history exists Pap Smear 03/21/2026 [...] Comments URINALYSIS OBSTETRICS, POINT OF CARE Routine 12/11/2023 2:05 PM EST 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 trimester Maternal chronic hypertension in third trimester documented in this encounter Results * PLT (12/11/2023 2:45 PM EST) PLT 298 140 - 400 K/uL 12/11/2023 3:07 PM EST LABORATORY [place] 57-10 Blood Venous blood specimen / Unknown Venipuncture / Unknown 12/11/2023 2:45 PM EST 12/11/2023 2:45 PM EST Gail Maher Backer [facility] BLOOD O RDERABLES LABORATORY [place] [address] [place] [address] * (ABNORMAL) URINALYSIS OBSTETRICS, POINT OF CARE (12/11/2023 2:05 PM EST) Color, Urine Yellow Light Yellow, Yellow 12/11/2023 2:08 PM EST LABORATORY [place] [facility] Clarity, Urine Clear Clear 12/11/2023 2:08 PM EST LABORATORY [place] 57[address]10 Glucose, Urine Negative Negative mg/dL 12/11/2023 2:08 PM EST LABORATORY [place] 57[address]10 Bilirubin, Urine Negative Negative 12/11/2023 2:08 PM EST LABORATORY [place] 57[address]10 Ketone, Urine Negative Negative mg/dL 12/11/2023 2:08 PM EST LABORATORY [place] 57[address]10 Specific [place], Urine 1.015 1.003 - 1.030 12/11/2023 2:08 PM EST LABORATORY [place] [facility] Blood, Urine Trace-intact (A) Negative 12/11/2023 2:08 PM EST LABORATORY [place] [facility] pH, Urine 7.0 5.0, 5.5, 6.0, 6.5, 7.0, 7.5 units 12/11/2023 2:08 PM EST LABORATORY [place] 57[facility] Protein, Urine Negative Negative mg/dL 12/11/2023 2:08 PM EST LABORATORY [place] [facility] Urobilinogen, Urine 0.2 0.2, 1.0 mg/dL 12/11/2023 2:08 PM EST LABORATORY [place] 57[address]10 Nitrite, Urine Negative Negative 12/11/2023 2:08 PM EST LABORATORY [place] [facility]10 Esterase, Urine Trace(A) Negative 12/11/2023 2:08 PM EST LABORATORY [place] [facility]10 Urine 12/11/2023 2:05 PM EST 12/11/2023 2:08 PM EST Gail Maher [facility] POINT O F CARE TEST DOCKED DEVICE UNSOLICITED RESULTS LABORATORY [place] 57[address] [facility] [place] [address] documented in this encounter Visit Diagnoses Diagnosis High-risk in third trimester- Primary Medical marijuana use Encounter for long-term (current) use of other medications 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 trimester Anxiety during H/O laminectomy Other postprocedural status Rh negative status during in third trimester Maternal chronic hypertension in third trimester documented in this encounter Care Teams Hand Sizer Relationship Specialty Start Date End Date Chuyita Villegas MD [address] [facility] [address] PCP - General Family Medicine 01/11/22 documented as of this encounter
--- OUTSIDE RECORDS SUMMARY | 2024-01-31 22:33 | External Medical Summary | Summary of Care ---
Author Name Unknown Organization [facility] Address [address] [facility] [place] [address] Phone [phone] Care Team Providers Care Weaver Dobby Loom Name Role Phone Chuyita Villegas MD Primary Care Provid er Encounter Details Date Type Department Care Team ([facility] st Contact Info) Description 11/27/2023 Telephone Gynecology/Obstetrics [facility] [address] [place] [address] BackerGail CRNP [address] [place] [address] Allergies No known active allergiesdocumented as of [...] assessment of proteinuria (24-hour urine protein or buqolub-ud-rphevredse ratio) and CBC, serum AST/ALT/creatinine. If patient [...] function stable. Patient had preconception counseling with [facility] licensed genetic counselor earlier this [...] indicated. H/O laminectomy 07/11/2023 Overview: Laminectomy in [place] in 2011. Will need anesthesia consult. 28 [...] money to get more. Never true 09/25/2023 [place] Depression Scale Answer Date Recorded [place] Depression Scale Total 5 07/11/2023 The thought [...] EDT Please schedule pt with anesthesia at [facility], referral was placed. ROBERTO Muñiz documented in this encounter Plan of Treatment Upcoming Encounters Date Type Department Care Team (Late st Contact Info) Description 12/06/2023 8:00 AM EDT Imaging Maternal Medicine Imaging, [address] [place] [address] 12/11/2023 1:45 PM EST Office Visit Gynecology/Obstetrics Garrett Piñagail [place] [address] Gail Sparks CRNP [address] [place] [address] 12/26/2023 9:15 AM EST Office Visit Gynecology/Obstetrics Garrett Abraham [address] [place] [address] Liliana Archer CRNP [address] [place] [address] Jarad Non Stress Tests Shawn [address] [place] [address] 01/01/2024 8:45 AM EST [facility] Crystal Cee [address] [place] [address] [address] [place] [address] 01/02/2024 2:30 PM EST Office Visit Gynecology/Obstetrics [facility] [address] [place] [address] Rudi Landry MD [address] [place] [address] Abraham, Non Stress Tests Shawn [address] [place] [address] 01/09/2024 2:30 PM EST Office Visit Gynecology/Obstetrics [facility] [address] [place] [address] Liliana Archer CRNP [address] [place] [address] Abraham, Non Stress Tests Shawn [address] [place] [address] 01/16/2024 2:30 PM EST Office Visit Gynecology/Obstetrics [facility] [address] [place] [address] Liliana Archer CRNP [address] [place] [address] Abraham, Non Stress Tests Shawn [address] [place] [address] 01/23/2024 2:30 PM EST Office Visit Gynecology/Obstetrics [facility] [address] [place] [address] Liliana Archer CRNP [address] [place] [address] Abraham, Non Stress Tests Shawn [address] [place] [address] 01/31/2024 8:00 AM EST Imaging Maternal Medicine Imaging, [place] [address] 01/31/2024 9:15 AM EST Office Visit Gynecology/Obstetrics Garrett Abraham [address] [place] [address] Rubia De La Cruz PA-C [address] [place], [place] [address] [address] 02/05/2024 11:00 AM EST Office Visit Gynecology/Obstetrics Garrett Abraham [address] [place] [address] Gail Sparks CRNP [address] [place], [place] [address] Jarad Non Stress Tests [place] [address] 02/13/2024 2:30 PM EST Office Visit Gynecology/Obstetrics Garrett Abraham [address] [place] [address] Liliana Archer CRNP [address] [place] [address] Jarad Non Stress Tests Shawn [address] [place] [address] 05/26/2024 3:20 PM EDT Office Visit [facility] [address] [facility], [place] [id number] Chuyita Villegas MD [address] [facility], [place] [address] Health Maintenance Due Date Last Done Comments [...] filedocumented as of this encounter Care Teams Weaver Dobby Loom Relationship Specialty Start Date End Date Chuyita Villegas MD [address] [place] [address] PCP - General Family Medicine 01/11/22 documented as of this encounter
--- OUTSIDE RECORDS SUMMARY | 2024-01-31 22:33 | External Medical Summary ---
Author Name Unknown Address Unknown Organization K01:LABORATORY [facility] [place] [address] [place] [address] Laboratory Report Ordering Provider Test Date Status JOSEMORENATRELL 12/11/2023 14:36:40 Final Normal: <150 mg/ g creatinine
High: 150-500 mg/g creatinine
Very High: >500 mg/g creatinine
Nephrotic: >3000 mg/g creatinine Observation Date Value Abnormality Reference (Units ) Status Protein/Creatinine [Ratio] in Urine 12/11/2023 14:36:40 <167 Above high normal <150 (mg/g ) Final Protein, Urine 12/11/2023 14:36:40 <6 (mg/dL) Final Creatinine, Urine 12/11/2023 14:36:40 36 (mg/dL) Final Performing Location LABORATORY [facility] [place] [address] [place] [address]
--- OUTSIDE RECORDS SUMMARY | 2024-01-31 22:33 | External Medical Summary ---
Author Name Unknown Address Unknown Organization K0G:LABORATORY [facility] [address] - [address] [place] [id number] Laboratory Report Ordering Provider Test Date Status JOSEALEM 12/11/2023 14:45:03 Final Observation Date Value Abnormality Reference (Units ) Status Creatinine 12/11/2023 14:45:03 0.7 0.5-1.0 (mg/dL) Final Glomerular filtration rate/1.73 sq M.predicted [Volume Rate/Area] in Serum, Plasma or Blood by Creatinine-based formula (CKD-EPI) 12/11/2023 14:45:03 >90 >=60 (mL/min) Final eGFR is calculated based on the CKD-EPI 2020 equation. Performing Location LABORATORY [facility] 57-[address] 0 - [address] [place] [address]
--- OUTSIDE RECORDS SUMMARY | 2024-01-31 22:33 | External Medical Summary ---
Author Name Unknown Address Unknown Organization [id number]:LABORATORY [facility] [address] - [address] [place] [address] Laboratory Report Ordering Provider Test Date Status JOSEALEM 12/11/2023 14:45:03 Final Observation Date Value Abnormality Reference (Units ) Status Platelets 12/11/2023 14:45:03 298 140-400 (K /uL) Final Performing Location LABORATORY [facility] [address] - [address] [place] [address]
--- OUTSIDE RECORDS SUMMARY | 2024-01-31 22:33 | External Medical Summary | Summary of Care ---
Author Name Unknown Organization [facility] Address [address] [place] [address] Phone [phone] Care Team Providers Care Mail Carriers Supervisor Name Role Phone Chuyita Villegas MD Primary Care Provid er Reason for Visit * Reason Onset Date Comments Blood Pressure Check 12/13/2023 Encounter Details Date Type Department Care Team ([facility] st Contact Info) Description 12/13/2023 Telephone Gynecology/Obstetrics [facility] [address] [facility] [place] [address] Gail Sparks CRNP [address] [facility] [place] [address] Blood Pressure Check Allergies No known active [...] assessment of proteinuria (24-hour urine protein or owhvlbm-lt-pwobmlkgin ratio) and CBC, serum AST/ALT/creatinine. If patient [...] function stable. Patient had preconception counseling with [facility] licensed genetic counselor earlier this year. [...] indicated. H/O laminectomy 07/11/2023 Overview: Laminectomy in [place] in 2011. Will need anesthesia consult. 28 [...] money to get more. Never true 09/25/2023 [place] Depression Scale Answer Date Recorded [place] Depression Scale Total 5 07/11/2023 The thought [...] No 09/25/2023 Does the household have a [facility] source [facility] income? (Household - for [...] 12/26/2023 9:15 AM EST Office Visit Gynecology/Obstetrics [address] [place] [address] Liliana Archer CRNP [address] [place] [address] Abraham, Non Stress Tests Shawn [address] [place] [address] 01/01/2024 8:45 AM EST Imaging [facility] Crystal Cee [address] [place] [address] [address] [place] [address] 01/02/2024 2:30 PM EST Office Visit Gynecology/Obstetrics [facility] [address] [place] [address] Rudi Landry MD [address] [place] [address] Abraham, Non Stress Tests Shawn [address] [place] [address] 01/09/2024 2:30 PM EST Office Visit Gynecology/Obstetrics [facility] [address] [place] [address] Liliana Archer CRNP [address] [place] [address] Abraham, Non Stress Tests Shawn [address] [place] [address] 01/16/2024 2:30 PM EST Office Visit Gynecology/Obstetrics [facility] [address] [place] [address] Liliana Archer CRNP [address] [place] [address] Abraham, Non Stress Tests Shawn [address] [place] [address] 01/23/2024 2:30 PM EST Office Visit Gynecology/Obstetrics [facility] [address] [place] [address] Liliana Archer CRNP [address] [place] [address] Abraham, Non Stress Tests Shawn [address] [place] [address] 01/31/2024 8:00 AM EST Imaging [facility], [facility] [address] [place] [address] 01/31/2024 9:15 AM EST Office Visit Gynecology/Obstetrics [facility] [address] [place] [address] Rubia De La Cruz PA-C [address] [place] [address] 02/05/2024 11:00 AM EST Office Visit Gynecology/Obstetrics [facility] [address] [place] [address] Gail Sparks CRNP [address] [place] [address] Abraham, Non Stress Tests Shawn [address] [place] [address] 02/13/2024 2:30 PM EST Office Visit Gynecology/Obstetrics [facility] [address] [place] [address] Liliana Archer CRNP [address] [place] [address] Abraham, Non Stress Tests Shawn [address] [place] [address] 05/26/2024 3:20 PM EDT Office Visit [facility] [address] [address] Chuyita Villegas MD [address] [place] [address] Health Maintenance Due Date Last Done Comments [...] filedocumented as of this encounter Care Teams Mail Carriers Supervisor Relationship Specialty Start Date End Date Chuyita Villegas MD [address] [place] [address] PCP - General Family Medicine 01/11/22 documented as of this encounter
--- OUTSIDE RECORDS SUMMARY | 2024-01-31 22:33 | External Medical Summary ---
Author Name Unknown Address Unknown Organization K0G:[facility] [address] - [address] [place] [address] Laboratory Report Ordering Provider Test Date Status ALEM GARCIA 12/11/2023 14:05:00 Final Observation Date Value Abnormality Reference (Units ) Status Color of Urine by Auto 12/11/2023 14:05:00 Yellow Light Yellow, Yellow Final Clarity, Urine 12/11/2023 14:05:00 Clear Clear Final Glucose [Mass/volume] in Urine by Automated test strip 12/11/2023 14:05:00 Negative Negative (mg/dL) Final Bilirubin.total [Presence] in Urine by Automated test strip 12/11/2023 14:05:00 Negative Negative Final Ketones [Mass/volume] in Urine by Automated test strip 12/11/2023 14:05:00 Negative Negative (mg/dL) Final Specific gravity, Urine 12/11/2023 14:05:00 1.015 1.003-1.030 Final Hemoglobin [Presence] in Urine by Automated test strip 12/11/2023 14:05:00 Trace-intact Abnormal Negative Final pH, Urine 12/11/2023 14:05:00 7.0 5.0, 5.5, 6.0, 6.5, 7.0, 7.5 (units) Final Protein [Mass/volume] in Urine by Automated test strip 12/11/2023 14:05:00 Negative Negative (mg/dL) Final Urobilinogen, Urine 12/11/2023 14:05:00 0.2 0.2, 1.0 (mg/dL) Final Nitrite [Presence] in Urine by Automated test strip 12/11/2023 14:05:00 Negative Negative Final Leukocyte esterase [Presence] in Urine by Automated test strip 12/11/2023 14:05:00 Trace Abnormal Negative Final Performing Location [facility] [address] [place] [id number]
--- OUTSIDE RECORDS SUMMARY | 2024-01-31 22:33 | External Medical Summary | Summary of Care ---
Author Name Unknown Organization [facility] Address [address] [place] [address] Phone [phone] Care Team Providers Care Engraver Jewelry Name Role Phone Chuyita Villegas MD Primary Care Provid er Encounter Details Date Type Department Care Team ([facility] st Contact Info) Description 12/06/2023 8:00 AM EDT Office Visit Call Or Contact Centre Operator Obstetrics [facility], [address] [address] Rocío Jones, DO [address] [place], [place] [id number] Maternal chronic hypertension, first trimester*; Renal disease [...] assessment of proteinuria (24-hour urine protein or afituoq-qw-jhgogqhnir ratio) and CBC, serum AST/ALT/creatinine. If patient [...] function stable. Patient had preconception counseling with [facility] licensed genetic counselor earlier this year. [...] indicated. H/O laminectomy 07/11/2023 Overview: Laminectomy in [place] in 2011. Will need anesthesia consult. 28 [...] money to get more. Never true 09/25/2023 [place] Depression Scale Answer Date Recorded [place] Depression Scale Total 5 07/11/2023 The thought [...] Cephalic presentation. I reviewed the ultrasound images. Gail was [...] Office Visit Gynecology/Obstetrics [facility] [address] [place] [address] Gail Sparks CRNP [address] [place] [address] 12/26/2023 9:15 AM EST Office Visit Gynecology/Obstetrics [facility] [address] [place] [address] Liliana Archer CRNP [address] [place] [address] Jarad Non Stress Tests Shawn [address] [place] [address] 01/01/2024 8:45 AM EST Imaging [facility] Crystal Cee [address] [place] [address] [address] [place] [address] 01/02/2024 2:30 PM EST Office Visit Gynecology/Obstetrics [facility] [address] [place] [address] Rudi Landry MD [address] [place] [address] Abraham, Non Stress Tests Shawn [address] [place] [address] 01/09/2024 2:30 PM EST Office Visit Gynecology/Obstetrics [facility] [address] [place] [address] Liliana Archer, RADIATION TECHNICIAN [address] [place] [address] Jarad Non Stress Tests Shawn [address] [place] [address] 01/16/2024 2:30 PM EST Office Visit Gynecology/Obstetrics [facility] [address] [place] [address] Liliana Archer, RADIATION TECHNICIAN [address] [place] [address] Jarad Non Stress Tests Shawn [address] [place] [address] 01/23/2024 2:30 PM EST Office Visit Gynecology/Obstetrics [facility] [address] [place] [address] Liliana Archer, RADIATION TECHNICIAN [address] [place] [address] Abraham Non Stress Tests Shawn [address] [place] [address] 01/31/2024 8:00 AM EST Imaging [facility], [address] [address] 01/31/2024 9:15 AM EST Office Visit Gynecology/Obstetrics [facility] [address] [place] [address] Rubia De La Cruz PA-C [address] [place] [address] 02/05/2024 11:00 AM EST Office Visit Gynecology/Obstetrics [facility] [address] [place] [address] Gail Sparks CRNP [address] [facility] [place] [address] Abraham Non Stress Tests Shawn [address] [place] [address] 02/13/2024 2:30 PM EST Office Visit Gynecology/Obstetrics [facility] [address] [place] [address] Liliana Archer CRNP [address] [facility] [place] [address] AbrahamGail tubbs Stress Tests Shawn [address] [place] [address] 05/26/2024 3:20 PM EDT Office Visit [facility] [address] [place] [facility] [place] [id number] Chuyita Villegas MD [address] [place] [address] Health Maintenance Due Date Last Done Comments [...] incidental documented in this encounter Care Teams Engraver Jewelry Relationship Specialty Start Date End Date Chuyita Villegas MD [address] [place] [address] PCP - General Family Medicine 01/11/22 documented as of this encounter
--- OUTSIDE RECORDS SUMMARY | 2024-01-31 22:33 | External Medical Summary | Summary of Care ---
Author Name Unknown Organization [facility] Address [address] [place] [address] Phone [phone] Care Team Providers Care Chief Librarian Circulation Department Name Role Phone Chuyiat Villegas MD Primary Care Provid er Reason for Visit * Reason Comments Outpatient Testing Encounter Details Date Type Department Care Team (Late st Contact Info) Description 12/11/2023 2:50 PM EST Laboratory Laboratory, [facility] [address] [place] [id number] [facility] [address] [place] [address] 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 trimester; Maternal chronic hypertension [...] assessment of proteinuria (24-hour urine protein or gaqpkmv-ic-ucpoltcizu ratio) and CBC, serum AST/ALT/creatinine. If patient [...] function stable. Patient had preconception counseling with [facility] licensed genetic counselor earlier this year. [...] indicated. H/O laminectomy 07/11/2023 Overview: Laminectomy in [place] in 2011. Will need anesthesia consult. 28 [...] money to get more. Never true 09/25/2023 [place] Depression Scale Answer Date Recorded [place] Depression Scale Total 5 07/11/2023 The thought [...] Nurse Only Gynecology/Obstetrics [facility] [address] [place] [address] Gw, Nurse Obgyn Injection [address] [place] [address] 12/26/2023 9:15 AM EST Office Visit Gynecology/Obstetrics [facility] [address] [place] [address] Liliana Archer CRNP [address] [place] [address] Gail Abraham Stress Tests Shawn [address] [place] [address] 01/01/2024 8:45 AM EST [facility] [address] [place] [address] 01/02/2024 2:30 PM EST Office Visit Gynecology/Obstetrics [facility] [address] [place] [address] Rudi Landry MD [address] [place] [address] Abraham, Non Stress Tests Shawn [address] [place] [address] 01/09/2024 2:30 PM EST Office Visit Gynecology/Obstetrics [facility] [address] [place] [address] Liliana Archer CRNP [address] [place] [address] Jarad Non Stress Tests Shawn [address] [place] [address] 01/16/2024 2:30 PM EST Office Visit Gynecology/Obstetrics [facility] [address] [place] [address] Liliana Archer CRNP [address] [place] [address] Jarad Non Stress Tests Shawn [address] [place] [address] 01/23/2024 2:30 PM EST Office Visit Gynecology/Obstetrics [facility] [address] [place] [address] Liliana Archer CRNP [address] [place] [address] Jarad, Non Stress Tests Shawn [address] [place] [address] 01/31/2024 8:00 AM EST Imaging [facility], [facility] [address] [place] [address] 01/31/2024 9:15 AM EST Office Visit Gynecology/Obstetrics [facility] [address] [place] [address] Rubia De La Cruz PA-C [address] [place] [address] 02/05/2024 11:00 AM EST Office Visit Gynecology/Obstetrics [facility] [address] [place] [address] Gail Sparks CRNP [address] [place] [address] Gail Abraham Stress Tests Shawn [address] [place] [address] 02/13/2024 2:30 PM EST Office Visit Gynecology/Obstetrics [facility] [address] [place] [address] Liliana Archer CRNP [address] [place] [address] Jarad Non Stress Tests Shanw [address] [place] [address] 05/26/2024 3:20 PM EDT Office Visit [facility] [address] [facility] [address] Chuyita [facility]legas [facility] [address] [facility] [address] Pending Results Name Type Priority Associated Diagnoses Date /Time PLT Lab Routine 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 trimester Maternal chronic hypertension in third trimester 12/11/2023 2:45 PM EST AST Lab Routine 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 trimester Maternal chronic hypertension in third trimester 12/11/2023 2:45 PM EST CREATININE Lab Routine 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 trimester Maternal chronic hypertension in third trimester 12/11/2023 2:45 PM EST Health Maintenance Due Date Last Done Comments Depression Monitoring 2002 HPV (Gardasil) Vaccine (2 - 3-dose series) 07/23/2008 06/25/2008 COVID-19 Vaccine ( season) 2023 02/08/2021, 05/05/2020, 04/07/2020 GFR 11/26/2024 11/27/2023, 06/2023, 02/16/2023, Additional history exists Pap Smear [...] as of this encounter Visit Diagnoses Diagnosis 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 trimester Maternal chronic hypertension in third trimester documented in this encounter Care Teams Chief Librarian Circulation Department Relationship Specialty Start Date End Date Chuyita Villegas MD [address] [place] [facility] [place] [address] PCP - General Family Medicine 01/11/22 documented as of this encounter
--- OUTSIDE RECORDS SUMMARY | 2024-01-31 22:33 | External Medical Summary ---
Author Name Unknown Address Unknown Organization K01:[facility] - [address] [place] [address] Laboratory Report Ordering Provider Test Date Status ALEM GARCIA 11/27/2023 10:08:40 Final Normal: <150 mg/ g creatinine
High: 150-500 mg/g creatinine
Very High: >500 mg/g creatinine
Nephrotic: >3000 mg/g creatinine Observation Date Value Abnormality Reference (Units ) Status Protein/Creatinine [Ratio] in Urine 11/27/2023 10:08:40 159 Above high normal <150 (mg/g ) Final Protein, Urine 11/27/2023 10:08:40 7 (mg/dL) Final Creatinine, Urine 11/27/2023 10:08:40 44 (mg/dL) Final Performing Location LAB[facility]ATORY [facility] - [address] [place] [address]
--- OUTSIDE RECORDS SUMMARY | 2024-01-31 22:34 | External Medical Summary | Summary of Care ---
Author Name Unknown Organization [facility] Address [address] [place] [address] Phone [phone] Care Team Providers Care Engineering Inspection Assistant Name Role Phone Chuyita Villegas MD Primary Care Provid er Reason for Visit * Reason Comments Return Visit Encounter Details Date Type Department Care Team (Late st Contact Info) Description 08/08/2023 2:00 PM EDT Office Visit Gynecology/Obstetric s [facility] [address] [place] [address] Liliana Archer CRNP [address] [place] [address] , supervision, high-risk, first trimester*; Polycystic kidney disease of fetus affecting management of mother in moss , antepartum; Anxiety during ; Supervision of normal first , antepartum; H/O laminectomy; Rh negative, antepartum; Maternal chronic hypertension, first trimester; Medical marijuana use Allergies No known active allergiesdocumented as of this encounter (statuses as of 08/08/2023) Medications Medication Sig Dispensed Refills Start Date [...] A DAY 15 g 5 02/15/2023 Active FLUoxetine HCl 20 MG Oral Capsule (PROzac)Indication s:GILMAR (generalized anxiety disorder) Take 1 capsule by mouth once daily. 90 Capsule 1 04/30/2023 Active buPROPion HCl ER (XL) 150 MG Oral Tablet Extended Release 24 Hour (Wellbutrin XL)Indications:GILMAR (generalized anxiety disorder) Take 1 tablet by mouth every morning. 90 Tablet 1 05/01/2023 Active FLUoxetine HCl 10 MG Oral Capsule (PROzac)Indication s:GILMAR (generalized anxiety disorder),Moderate episode of recurrent major depressive disorder (HCC) Take 1 capsule by mouth once daily. Add to 20 mg capsule for 30 mg total daily dose. 90 Capsule 1 05/01/2023 Active amLODIPine Besylate 5 MG Oral Tablet (Norvasc)Indicatio ns:Polycystic kidney disease,HTN, goal below 130/80 Take 1 Tablet by mouth in the morning. 90 Tablet 1 05/25/2023 Active 28-0.8 MG Oral Tablet Take by mouth. Active documented as of this encounter (statuses as of 08/08/2023) Active Problems Problem Noted Date Diagnosed Date Maternal chronic hypertension, first trimester 0 07/19/2023 Overview: Obtain baseline lab work ARIES (if not already done) with assessment of proteinuria (24-hour urine protein or ebfekqx-xn-ioimoxlvwl ratio) and CBC, serum AST/ALT/creatinine. If patient [...] 07/11/2023 11:49 AM Last Assessment & Plan: Considerations: Women with chronic hypertension during are at significantly increased risk for morbidity. Signs and symptoms of superimposed pre-eclampsia were reviewed; instructed patient to contact primary OB care provider if these symptoms occur. Recommendations: Obtain baseline lab work ARIES (if not already done) with assessment of proteinuria (24-hour urine protein or gnqlxjk-fb-lusfnxyrnb ratio) and CBC, serum AST/ALT/creatinine. If patient [...] Between 37 0/7 and 39 6/7 weeks , supervision, high-risk, first trimest er 07/19/2023 Rh negative status during 07/12/2023 Polycystic kidney disease of fetus affecting management of mother in moss , antepartum 07/11/2023 Overview: Follows with Nephrology. Switched from losartan to amlodipine in February due to plans for . Kidney function stable. Patient had preconception counseling with [facility] licensed genetic counselor earlier this year. [...] to behavioral health services as clinically indicated. Supervision of normal first , antepartu m 07/11/2023 H/O laminectomy 07/11/2023 Overview: Laminectomy in [place] in 2011. Will need anesthesia consult Last [...] as of this encounter (statuses as of 08/08/2023) Immunizations Name Administration Dates Next Due Seasonal Influenza, PF, 6 M & above, IM , (FluLaval or Fluzone) 01/13/2022 TDAP (age 10 and older)(Boostrix) 11/25/2018, documented as of this encounter Social History [...] the money to buy more. Never true 11/22/19 23 Within the past 12 months, t he food you bought just didn't last and you didn't have money to get more. Never true 11/21/2022 [place] Depression Scale Answer Date Recorded [place] Depression Scale Total 5 07/11/2023 The thought of harming myself has occurred to me . Never 07/11/2023 Childcare Answer Date Recorded Do you feel overwhelmed with taking care of a child, family member or friend? No 11/21/2022 Does your family need help f inding childcare? (Household - for ages 0-17 years) Not on file 11/21/2022 Clothing Answer Date Recorded Have you been unable to get clothing when it was really needed? No 11/21/2022 Is your family able to get c lothes or diapers when needed? (Household - for ages 0-17 years) Not on file 11/21/2022 Personal Safety Answer Date Recorded Do you feel unsafe or have concerns for your saf ety? No 11/21/2022 Do you have concerns for you r family's safety? (Household - for ages 0-17 years) Not on file 11/21/2022 Utilities Answer Date Recorded Do you have trouble paying y our heating, water, or electric bill? No 11/21/2022 Is your family able to pay t he heat, water, or electric bill? (Household - for ages 0-17 years) Not on file 11/21/2022 Does your family have access to good internet? (Household - for ages 0-17 years) Not on file 11/21/2022 Employment Status Answer Date Recorded Are you unemployed or without regular income? No 11/21/2022 Does the household have a [facility] source of income? (Household - for ages 0-17 years) Not on file 11/21/2022 Social Connections Answer Date Recorded How often do you feel lonely or isolated from th ose around you? Rarely 11/21/2022 Financial Resource Strain Answer Date R ecorded Do you have any trouble payi ng for your medications, or do you think you might in the future? No 11/21/2022 Does your family have troubl e paying for medicine? (Household - for ages 0-17 years) Not on file 11/21/2022 Transportation Needs Answer Date Record ed READ ONLY Do you have troubl e getting a ride to medical visits or work? Never True 11/21/2022 Does your family have a hard time getting a ride to doctors visits? (Household - for ages 0-17 years) Not on file 11/21/2022 Has lack of transportation k ept you from medical appointments, meetings, work, or from getting things needed for daily living? Check all that apply. (Adult - for ages 18 years and over) Not on file 11/21/2022 Do you (or your family) have trouble finding or paying for a ride (transportation)? (Household - for ages 0-17 years) Not on file 11/21/2022 Housing Stability Answer Date Recorded Do you currently live in a s helter or have no steady place to sleep at night? No 11/21/2022 READ ONLY Do you think you a re at risk of becoming homeless? No 11/21/2022 Does your family worry about paying for your home or becoming homeless? (Household - for ages 0-17 years) Not on file 1 Are you homeless or worried that you might be in the future? (Adult - for ages 18 years and over) Not on file Are you (or your family) solis eless or worried that you might be in the future? (Household - for ages 0-17 years) Not on file Food Insecurity Answer Date Recorded Do you need food for this week? No 11/21/2022 Are you able to get enough f ood for your family? (Household - for ages 0-17 years) Not on file 11/21/2022 Does your family need food t his week? (Household - for ages 0-17 years) Not on file 11/21/2022 Do you always have enough fo od for your family? (Household - for ages 0-17 years) Not on file 11/21/2022 Estimated Date of Delivery Comme nts Yes [...] Sign Reading Time Taken Comments Blood Pressure 124/78 08/08/2023 2:04 PM EDT Pulse - - Temperature - - Respiratory Rate - - Oxygen Saturation - - Inhaled Oxygen Concentration - - Weight 69.9 kg (154 lb) 08/08/2023 2:04 PM EDT Height 165.1 cm (5' 5") 08/08/2023 2:04 PM EDT Body Mass Index 25.63 08/08/2023 2:04 PM EDT documented in this encounter Progress Notes * Liliana Archer CRNP - 08/08/2023 2:20 PM EDT 12w1d Had telemed with [facility]. Recommending MRI of head, planning to discuss with boathouse keeper to have ordered.. Mild nausea, no bleeding. Declines genetics. ROBERTO Nuñez * Shannon Smyth LPN - 08/08/2023 2:05 PM EDT 12w1d Declines genetic testing documented in this encounter Plan of Treatment Upcoming Encounters Date Type Department Care Team (Late st Contact Info) Description 09/07/2023 9:00 AM EDT [facility] [address] [place] [address] Nieves Lara PA-C [address] [place] [address] 10/05/2023 8:30 AM EDT Office Visit Net Software Architect OB Maternal Medicine [facility] Crystal Cee [address] [place] [address] [address] [place] [address] Rocío Jones, DO [address] [place] [address] 10/05/2023 8:30 AM EDT Imaging Maternal Medicine [facility] Crystal Cee [address] [place] [address] Dr [address] [place] [address] 02/19/2024 2:00 PM EST Office Visit [facility] [address] [place] [address] Sagar Bearden MD [address] [facility] [place] [address] 05/26/2024 3:20 PM EDT Office Visit [facility] [address] [place] [address] Chuyita Villegas MD [address] [place] [address] Health Maintenance Due Date Last Done Comments Depression Monitoring 2002 HPV (Gardasil) Vaccine (2 - 3-dose series) 07/23/2008 06/25/2008 COVID-19 Vaccine (2022-24 season) 2022 02/08/2021, 05/05/2020, 04/07/2020 Influenza Vaccine (FLU shot) (#1) 2023 01/13/2022, 11/09/2019, 11/25/2018, Additional history exists GFR 07/10/2024 07/11/2023, 02/05, 05/12/2022, Additional history exists Pap Smear 03/21/2026 03/21/2023 Cervical Cancer Screening 03/21/2028 HPV/Co-Test 03/21/2028 03/21/2023 DTaP,Tdap,and Td Vaccines (8 - Td or Tdap) 11/25/2028 11/25/2018, 06/25/2008, 04/06/1995, Additional history exists Hepatitis B Vaccine Completed 03/13/2000, 09/09/1999, 07/21/1999 MENINGOCOCCAL (MENACTRA/MENVEO) Completed 08/12/2008 Pneumococcal Vaccine: Pediatrics (0 to 5 Years) and At-Risk Patients (6 to 64 Years) Aged Out No longer eligible based on patient's age to complete this topic documented as of this encounter Medical Devices Not on filedocumented as of this encounter Visit Diagnoses Diagnosis , supervision, high-risk, first trimester- Primary Polycystic kidney disease of fetus affecting management of mother in moss , antepartum Anxiety during Supervision of normal first , antepartum H/O laminectomy Other postprocedural status Rh negative, antepartum Rhesus isoimmunization affecting management of mother, antepartum condition Maternal chronic hypertension, first trimester Medical marijuana use Encounter for long-term (current) use of other medications documented in this encounter Care Teams Engineering Inspection Assistant Relationship Specialty Start Date End Date Chuyita Villegas MD [address], [place] [phone] PCP - General Family Medicine 01/11/22 documented as of this encounter
--- OUTSIDE RECORDS SUMMARY | 2024-01-31 22:34 | External Medical Summary | Summary of Care ---
Author Name Unknown Organization [facility] Address [address] [place] [address] Phone [phone] Care Team Providers Care Carry Out Clerk Name Role Phone Cliff Segura MD Primary Care Provid er Reason for Visit * Reason Onset Date Comments Medication Refill 08/28/2023 Encounter Details Date Type Department Care Team ([facility] st Contact Info) Description 08/28/2023 Refill [facility] [address] [place] [address] Cliff Segura MD [address] [place] [address] Polycystic kidney disease; HTN, goal below 130/80 Allergies No known active allergiesdocumented as of this encounter (statuses as of 08/29/2023) Medications Medication Sig Dispensed Refills Start Date End Date Status LORazepam 0.5 MG Oral Tablet (Ativan)Indicati ons:GILMAR (generalized anxiety disorder),Modera te episode of recurrent major depressive disorder (HCC) Take 1 Tablet by mouth 3 times a day as needed for Anxiety. 15 Tablet 11/21/2022 Active Additional Information Patient not taking.Reported on 07/09/2023 Triamcinolone Acetonide 0.1 % External Ointment (Aristocort)Chelly [...] daily dose. 90 Capsule 1 05/01/2023 Active 28-0.8 MG Oral Tablet Take by mouth. Active amLODIPine Besylate 5 MG Oral Tablet (Norvasc)Indicat ions:Polycystic kidney disease,HTN, goal below 130/80 Take 1 Tablet by mouth in the morning. 90 Tablet 1 08/29/2023 Active amLODIPine Besylate 5 MG Oral Tablet (Norvasc)Indicat ions:Polycystic kidney disease,HTN, goal below 130/80 Take 1 Tablet by mouth in the morning. 90 Tablet 1 05/25/2023 Discontinue d(Refill) documented as of this encounter (statuses as of 08/29/2023) Active Problems Problem Noted Date Diagnosed Date Maternal chronic hypertension, first trimester 0 07/19/2023 Overview: Obtain baseline lab work ARIES (if not already done) with assessment of proteinuria (24-hour urine protein or xqukrcb-gs-bobrppyvoq ratio) and CBC, serum AST/ALT/creatinine. If patient [...] assessment of proteinuria (24-hour urine protein or zddrjjc-vl-zvuimnmklz ratio) and CBC, serum AST/ALT/creatinine. If patient [...] function stable. Patient had preconception counseling with [facility] licensed genetic counselor earlier this year. [...] 07/11/2023 H/O laminectomy 07/11/2023 Overview: Laminectomy in [place] in 2011. Will need anesthesia consult Last [...] as of this encounter (statuses as of 08/29/2023) Immunizations Name Administration Dates Next Due Seasonal [...] money to get more. Never true 11/21/2022 [place] Depression Scale Answer Date Recorded [place] Depression Scale Total 5 07/11/2023 The thought [...] No 11/21/2022 Does the household have a re lar [...] encounter Miscellaneous Notes * Telephone Encounter - Nathanael Zabala [facility] - 08/29/2023 10:41 AM EDTSigned Prescriptions: Disp Refills amLODIPine Besylate 5 MG Oral Tablet (Norv*90 Tab*1 Sig: Take 1 Tablet by mouth in the morning.Authorizing Provider: CLIFF SEGURA User: NATHANAEL ZABALA * Telephone Encounter - Nathanael Zabala RPh - 08/29/2023 10:40 AM EDT Rerouted rx to new pharmacy as requested. Thank you, Nathanael Zabala, PharmD Clinical Pharmacist [facility] [phone] 08/29/2023, 10:41 AM documented in this encounter Plan of Treatment Upcoming Encounters Date Type Department Care Team (Late st Contact Info) Description 09/07/2023 9:00 AM EDT Office Visit Gynecology/Obstetrics [facility] [address] [place] [address] Nieves Lara PA-C [address] [place] [address] 10/05/2023 8:30 AM EDT Office Visit Environmental Journalist OB Maternal Medicine [facility] Crystal Cee [address] [place] [address] [address] [facility] [address] Mick Ortega MD [address] [place] [address] 10/05/2023 8:30 AM EDT Imaging Maternal Medicine [facility] Crystal Cee [address] [place] [address] [address] [place] [address] 02/19/2024 2:00 PM EST Office Visit NephrologySarah [address] [place] [address] Sagar Bearden MD [address] [facility] [place], [place] [address] 05/26/2024 3:20 PM EDT Office Visit [facility] [address] [place] [facility] [place] [id number] Cliff Segura MD [address] [place] [facility] [place] [address] Health Maintenance Due Date Last Done Comments Depression Monitoring 2002 HPV (Gardasil) Vaccine (2 - 3-dose series) 07/23/2008 06/25/2008 COVID-19 Vaccine ( season) 2022 02/08/2021, 05/05/2020, 04/07/2020 Influenza Vaccine [...] encounter Visit Diagnoses Diagnosis Polycystic kidney disease Polycystic kidney, unspecified type HTN, goal below 130/80 Unspecified essential hypertension documented in this encounter Care Teams Carry Out Clerk Relationship Specialty Start Date End Date Cliff Segura MD [address] [place] [facility] [place] [address] PCP - General Family Medicine 01/11/22 documented as of this encounter
--- OUTSIDE RECORDS SUMMARY | 2024-01-31 22:34 | External Medical Summary | Summary of Care ---
Author Name Unknown Organization [facility] Address [address] [place] [address] Phone [phone] Care Team Providers Care Chef German Name Role Phone Chuyita Villegas MD Primary Care Provid er Encounter Details Date Type Department Care Team ([facility] st Contact Info) Description 11/07/2023 8:45 AM EDT Office Visit Zoology Professor Obstetrics Maternal Medicine, [address] [address] Rocío Jones, DO [address] [place], [place] [phone] Maternal chronic hypertension, first trimester*; Renal disease during in second trimester; Ultrasound for screening for growth restriction; 25 weeks gestation of Allergies No known active allergiesdocumented as of this encounter (statuses as of 11/07/2023) Medications Medication Sig Dispensed Refills Start Date [...] the morning. 90 Tablet 1 10/22/2023 Active documented as of this encounter (statuses as of 11/07/2023) Active Problems Problem Noted Date Diagnosed Date Maternal chronic hypertension, first trimester 0 07/19/2023 Overview: Obtain baseline lab work ARIES (if not already done) with assessment of proteinuria (24-hour urine protein or lsipsxj-gt-dkvxteplib ratio) and CBC, serum AST/ALT/creatinine. If patient [...] function stable. Patient had preconception counseling with [facility] licensed genetic counselor earlier this year. Declined [...] indicated. H/O laminectomy 07/11/2023 Overview: Laminectomy in [place] in 2011. Will need anesthesia consult Last [...] as of this encounter (statuses as of 11/07/2023) Resolved Problems Problem Noted Date Diagnosed Date Resolved Date Supervision of normal first , antepartum 07/11/2023 10/09/2023 documented as of this encounter (statuses as of 11/07/2023) Immunizations Name Administration Dates Next Due Seasonal Influenza, PF, 6 M & above, IM , (FluLaval or Fluzone) 01/13/2022 Seasonal Influenza, Trivalent, (IIV3), PF, (Fluz one) 11/06/2023 TDAP (age 10 and older)(Boostrix) 11/25/2018, documented [...] money to get more. Never true 09/25/2023 [place] Depression Scale Answer Date Recorded [place] Depression Scale Total 5 07/11/2023 The thought [...] 09/25/2023 Transportation Needs Answer Date Record ed READ ONLY Do you have troubl e getting a ride to medical visits or work? Never True 09/25/2023 Does your family have a hard [...] place to sleep at night? No 09/25/2023 READ ONLY Do you think you a re at risk of becoming homeless? No 09/25/2023 Does your family worry about paying [...] Progress Notes * Rocío Jones DO - 11/07/2023 1:14 PM EDT Gail presented today at 25w1d for an ultrasound for the following indications: Maternal chronic hypertension, first trimester Assessment & Plan: BP Readings from Last 5 Encounters: 11/06/23 126/84 10/09/23 132/80 09/07/23 134/82 08/08/23 124/78 07/11/23 130/78 Titrate medication to maintain goal BP < 140/90. Renal disease during in second trimester Ultrasound for screening for growth restriction 25 weeks gestation of Ultrasound summary: Patient presented at 25w 1d for growth assessment. Normal growth with EFW 805 g at 51%ile. Normal TISH at 8.8 cm. Breech presentation. I reviewed the ultrasound images. Gail [...] call with any questions. Rocío Jones DO 11/07/2023 1:14 PM documented in this encounter Miscellaneous Notes * Assessment & Plan Note - Rocío Jones DO - 11/07/2023 1:14 PM EDT Associated Problem(s): Maternal chronic hypertension, first trimester BP Readings from Last 5 Encounters: 11/06/23 126/84 10/09/23 132/80 09/07/23 134/82 08/08/23 124/78 07/11/23 130/78 Titrate medication to maintain goal BP < 140/90. documented in this encounter Plan of Treatment Upcoming Encounters Date Type Department Care Team (Late st Contact Info) Description 11/27/2023 8:30 AM EDT Office Visit Gynecology/Obstetrics [facility] Andrades [address] [place] [address] BackerGail CRNP [address] [place] [address] 11/27/2023 8:30 AM EDT [facility] [address] [place] [id number] [facility] [address] [place] [address] 12/06/2023 8:00 AM EDT Imaging Maternal Medicine [place] [address] [place] [address] 01/01/2024 8:45 AM EST [facility] Crystal Cee [address] [place] [address] [address] [place] [address] 01/31/2024 8:00 AM EST Imaging Maternal Medicine Imaging, Shawn Andrades [address] [place] [phone] 05/26/2024 3:20 PM EDT Office Visit [facility] [address] [place] [address] Chuyita Villegas MD [address] [place] [address] Health Maintenance Due Date Last Done Comments Depression Monitoring 2002 HPV (Gardasil) Vaccine (2 - 3-dose series) 07/23/2008 06/25/2008 COVID-19 Vaccine ( season) 2023 02/08/2021, 05/05/2020, 04/07/2020 GFR 07/10/2024 07/11/2023, 02/05, 05/12/2022, Additional history exists Pap Smear 03/21/2026 03/21/2023 Cervical Cancer Screening 03/21/2028 HPV/Co-Test 03/21/2028 03/21/2023 DTap/Tdap Vaccines (8 - Td or Tdap) 11/25/2028 [...] ultrasonics 25 weeks gestation of state, incidental documented in this encounter Care Teams Chef German Relationship Specialty Start Date End Date Chuyita Villegas MD [address] [place] [address] PCP - General Family Medicine 01/11/22 documented as of this encounter
--- OUTSIDE RECORDS SUMMARY | 2024-01-31 22:34 | External Medical Summary ---
Author Name Unknown Address Unknown Organization K01:[facility] - [address] [place] [address] Laboratory Report Ordering Provider Test Date Status AJIT DICKENS 11/27/2023 09:35:36 Final Observation Date Value Abnormality Reference (Units ) Status ABO 11/27/2023 09:35:36 O Final RH 11/27/2023 09:35:36 Negative Final RED BLOOD CELL ANTIBODY SCREEN 11/27/2023 09:35:36 Negative Final SPECIMEN EXPIRATION DATE 11/27/2023 09:35:36 11/30/2023 23:59 Final Performing Location [facility] - [address] [place] [address]
--- OUTSIDE RECORDS SUMMARY | 2024-01-31 22:34 | External Medical Summary | Summary of Care ---
Author Name Unknown Organization [facility] Address [address] [place] [address] Phone [phone] Care Team Providers Care Welder Journeyman Name Role Phone Cliff Segura MD Primary Care Provid er Reason for Visit * Reason Comments eRx-Medication Refill Encounter Details Date Type Department Care Team ([facility] st Contact Info) Description 10/20/2023 Refill [facility] [address] [place] [address] Cliff Segura MD [address] [place] [address] Polycystic kidney disease; HTN, goal below 130/80 Allergies No known active allergiesdocumented as of this encounter (statuses as of 10/22/2023) Medications Medication Sig Dispensed Refills Start Date [...] the morning. 90 Tablet 1 10/22/2023 Active amLODIPine Besylate 5 MG Oral Tablet (Norvasc)Indicat ions:Polycystic kidney disease,HTN, goal below 130/80 Take 1 Tablet by mouth in the morning. 90 Tablet 1 08/29/2023 4 Discontinued documented as of this encounter (statuses as of 10/22/2023) Active Problems Problem Noted Date Diagnosed Date Maternal chronic hypertension, first trimester 0 07/19/2023 Overview: Obtain baseline lab work ARIES (if not already done) with assessment of proteinuria (24-hour urine protein or oxkuocq-rd-blpmttoyme ratio) and CBC, serum AST/ALT/creatinine. If patient [...] 07/11/2023 11:49 AM Last Assessment & Plan: I reviewed the ultrasound with her. The anatomy that was visualized appears unremarkable and the biometry is appropriate for the gestational age. The amniotic fluid volume is subjectively normal and the fetus is in the vertex presentation. High-risk 07/19/2023 Rh negative status during 07/12/2023 Kidney disease in 07/11/2023 Overview: Follows with Nephrology. Switched from losartan to amlodipine in February due to plans for . Kidney function stable. Patient had preconception counseling with [facility] licensed genetic counselor earlier this year. [...] indicated. H/O laminectomy 07/11/2023 Overview: Laminectomy in [place] in 2011. Will need anesthesia consult Last [...] as of this encounter (statuses as of 10/22/2023) Resolved Problems Problem Noted Date Diagnosed Date Resolved Date Supervision of normal first , antepartum 07/11/2023 10/09/2023 documented as of this encounter (statuses as of 10/22/2023) Immunizations Name Administration Dates Next Due Seasonal [...] to get more. Never true 09/25/2023 [place] Depression Scale Answer Date Recorded [place] Depression Scale Total 5 07/11/2023 The thought [...] Miscellaneous Notes * Telephone Encounter - Cliff Segura MD - 10/22/2023 3:43 PM EDT Signed Prescriptions: Disp Refills amLODIPine Besylate 5 MG Oral Tablet (Norv*90 Tab*1 Sig: Take 1 Tablet by mouth in the morning. Authorizing Provider: CLIFF SEGURA * Telephone Encounter - Yeni Golden RPh - 10/22/2023 1:52 PM EDTPending Prescriptions: Disp Refills amLODIPine Besylate 5 MG Oral Tablet (Norv*90 Tab*1 Sig: Take 1 Tablet by mouth in the morning. * Telephone Encounter - Yeni Golden RPh - 10/22/2023 1:52 PM EDT Unable to authorize medication refills for pended medication(s) at this time. Part of the protocol criteria used for refill authorization was not satisfied. Patient is currently . Please approve if appropriate. Thanks, Yeni Golden PharmD Clinical Pharmacist Centralized Clinical Pharmacy Services ([facility] [phone] 10/22/2023, 1:52 PM * Telephone Encounter - Yeni Golden RPh - 10/22/2023 1:50 PM EDT Pending Prescriptions: Disp Refills amLODIPine Besylate 5 MG Oral Tablet (Nor*90 Tab*0 Sig: Take 1 tablet by mouth in the morning. Start after losartan stopped and once IUD is removed. Last Visit: 05/25/2023 (in office), Visit date not found (telemedicine) Next Visit: 05/26/2024 If no future appointments scheduled, and last appointment is greater than a year ago, please schedule patient for a follow-up appointment Last date the medication was ordered: 08/29/23 Pharmacy: [place] [facility] [id number] [place] Is this request for a controlled substance? No Urine Drug Screen:No results found for this or any previous visit. Patient Phone Numbers Labs: Lab Results Component Value Date/Time CREAT 0.7 07/11/2023 11:33 AM POTASSIUM 4.0 02/16/2023 02:56 PM TSH 1.50 01/13/2022 04:10 PM LDL 64 02/16/2023 02:56 PM ALT 11 07/11/2023 11:33 AM documented in this encounter Plan of Treatment Upcoming Encounters Date Type Department Care Team (Late st Contact Info) Description 11/06/2023 8:15 AM EDT Office Visit Gynecology/Obstetrics Garrett Abraham [address] [place] [address] Liliana Archer CRNP [address] [place] [address] 11/07/2023 8:45 AM EDT Imaging Radiology, [facility] [address] [place] [address] 12/06/2023 8:00 AM EDT Imaging Maternal Medicine Imaging, Shawn Abraham [address] [address] 01/01/2024 8:45 AM EST Imaging [facility] Medicine [facility] Crystal Cee [address] [place] [address] [address] [place] [address] 01/31/2024 8:00 AM EST Imaging Maternal Medicine [facility] [address] [place] [address] 05/26/2024 3:20 PM EDT Office Visit [facility] [address] [place] [address] Cliff Segura MD [address] [place] [address] Health Maintenance Due Date Last Done Comments Depression Monitoring 2002 HPV (Gardasil) Vaccine (2 - 3-dose series) 07/23/2008 06/25/2008 COVID-19 Vaccine ( season) 2023 02/08/2021, 05/05/2020, 04/07/2020 Influenza Vaccine (FLU shot) [...] hypertension documented in this encounter Care Teams Welder Journeyman Relationship Specialty Start Date End Date Cliff Segura MD [address] [place] [address] PCP - General Family Medicine 01/11/22 documented as of this encounter
--- OUTSIDE RECORDS SUMMARY | 2024-01-31 22:34 | External Medical Summary ---
Author Name Unknown Address Unknown Organization [id number]:[facility]ORY [facility] [place] - [address] [place] [address] Laboratory Report Ordering Provider Test Date Status AJIT DICKENS 11/27/2023 09:35:36 Final Observation Date Value Abnormality Reference (Units ) Status Creatinine 11/27/2023 09:35:36 0.6 0.5-1.0 (mg/dL) Final Glomerular filtration rate/1.73 sq M.predicted [Volume Rate/Area] in Serum, Plasma or Blood by Creatinine-based formula (CKD-EPI) 11/27/2023 09:35:36 >90 >=60 (mL/min) Final eGFR is calculated based on the CKD-EPI 2020 equation. Performing Location [facility] [place] - [address] [place] [address]
--- OUTSIDE RECORDS SUMMARY | 2024-01-31 22:34 | External Medical Summary ---
Author Name Unknown Address Unknown Organization [id number]:[facility] - [facility] [place] [address] Laboratory Report Ordering Provider Test Date Status OLIVE DICKENSJOI 11/27/2023 09:35:36 Final Observation Date Value Abnormality Reference (Units ) Status Retic, % (auto) 11/27/2023 09:35:36 2.24 Above high normal 0.80-1.90 (%) Final Reticulocytes, Absolute 11/27/2023 09:35:36 86.9 31.3-100.1 (K/uL) Final Reticulocyte fraction, immature 11/27/2023 09:35:36 19.7 2.5-20.6 (%) Final Reticulocyte HGB 11/27/2023 09:35:36 33.3 29.7-37.4 (pg) Final Performing Location [facility] - [address] [place] [address]
--- OUTSIDE RECORDS SUMMARY | 2024-01-31 22:34 | External Medical Summary | Summary of Care ---
Author Name Unknown Organization [facility] Address [address] [facility] [place] [address] Phone [phone] Care Team Providers Care Presser Hand Name Role Phone Chuyita Villegas MD Primary Care Provid er Reason for Visit * Reason Comments Return Visit Encounter Details Date Type Department Care Team ([facility] st Contact Info) Description 09/07/2023 9:00 AM EDT Office Visit Gynecology/Obstetric s Garrett Abraham [address] [place] [address] Nieves Lara PA-C [address] [place] [address] Supervision of normal first , antepartum*; Medical marijuana use; Polycystic kidney disease of fetus affecting management of mother in moss , antepartum; Anxiety during ; H/O laminectomy; Rh negative status during in second trimester; Maternal chronic hypertension, first trimester; , supervision, high-risk, first trimester Allergies No known active allergiesdocumented as of this encounter (statuses as of 09/07/2023) Medications Medication Sig Dispensed Refills Start Date [...] the morning. 90 Tablet 1 08/29/2023 Active documented as of this encounter (statuses as of 09/07/2023) Active Problems Problem Noted Date Diagnosed Date Maternal chronic hypertension, first trimester 0 07/19/2023 Overview: Obtain baseline lab work ARIES (if not already done) with assessment of proteinuria (24-hour urine protein or oyewxsh-vm-pbtwfnqepp ratio) and CBC, serum AST/ALT/creatinine. If patient [...] assessment of proteinuria (24-hour urine protein or tpuzrts-vt-ynobrkmege ratio) and CBC, serum AST/ALT/creatinine. If patient [...] function stable. Patient had preconception counseling with [facility] licensed genetic counselor earlier this [...] 07/11/2023 H/O laminectomy 07/11/2023 Overview: Laminectomy in [place] in 2011. Will need anesthesia consult Last [...] as of this encounter (statuses as of 09/07/2023) Immunizations Name Administration Dates Next Due Seasonal [...] money to get more. Never true 11/21/2022 [place] Depression Scale Answer Date Recorded [place] Depression Scale Total 5 07/11/2023 The thought [...] No 11/21/2022 Does the household have a kresge eye instituter source of income? (Household - for ages [...] Sign Reading Time Taken Comments Blood Pressure 134/82 09/07/2023 9:03 AM EDT Pulse - - Temperature - - Respiratory Rate - - Oxygen Saturation - - Inhaled Oxygen Concentration - - Weight 70.8 kg (156 lb) 09/07/2023 9:03 AM EDT Height 165.1 cm (5' 5") 09/07/2023 9:03 AM EDT Body Mass Index 25.96 09/07/2023 9:03 AM EDT documented in this encounter Progress Notes * Nieves Lara PA-C - 09/07/2023 9:13 AM EDT 16w3d Doing well, no complaints. Denies VB, LOF. Declines genetics including MSAFP. Anatomy with MFM. RTC in 4 weeks documented in this encounter Nursing Notes * Ivonne Winkler LPN - 09/07/2023 9:03 AM EDT 16w3d Denies concerns documented in this encounter Plan of Treatment Upcoming Encounters Date Type Department Care Team (Late st Contact Info) Description 09/28/2023 2:00 PM EDT Imaging Radiology [facility] [place] [address] [place] [address] 10/05/2023 8:30 AM EDT Office Visit Repair Welder OB Maternal Medicine [facility] [address] [place] [address] [address] [facility] [address] Mick Ortega MD [address] [place] [address] 10/05/2023 8:30 AM EDT Imaging Maternal Medicine [facility] Crystal Cee [address] [place] [address] Dr [address] [place] [address] 10/09/2023 1:45 PM EDT Office Visit Gynecology/Obstetrics [facility] [address] [place] [address] Gail Sparks CRNP [address] [place] [address] 02/19/2024 2:00 PM EST Office Visit Nephrology, Sarah Cantu [address] [place] [address] Sagar Bearden MD [address] [place] [address] 05/26/2024 3:20 PM EDT Office Visit [facility], [place] [address] [place] [address] Chuyita Villegas MD [address] [place] [address] Health Maintenance Due Date Last Done Comments Depression Monitoring 2002 HPV (Gardasil) Vaccine (2 - 3-dose series) 07/23/2008 06/25/2008 COVID-19 Vaccine (2022- season) 2022 02/08/2021, 05/05/2020, 04/07/2020 Influenza Vaccine [...] as of this encounter Visit Diagnoses Diagnosis Supervision of normal first , antepartum- Primary Medical marijuana use Encounter for long-term (current) use of other medications Polycystic kidney disease of fetus affecting management of mother in moss , antepartum Anxiety during H/O laminectomy Other postprocedural status Rh negative status during in second trimester Maternal chronic hypertension, first trimester , supervision, high-risk, first trimester documented in this encounter Care Teams Presser Hand Relationship Specialty Start Date End Date Chuyita Villegas MD [address] [place] [address] PCP - General Family Medicine 01/11/22 documented as of this encounter
--- OUTSIDE RECORDS SUMMARY | 2024-01-31 22:34 | External Medical Summary | Summary of Care ---
Author Name Unknown Organization [facility] Address [address] [place] [address] Phone [phone] Care Team Providers Care Photography Spotter Name Role Phone Cliff Segura MD Primary Care Provid er Reason for Visit * Reason Comments eRx-Medication Refill Encounter Details Date Type Department Care Team ([facility] st Contact Info) Description 10/09/2023 Refill [facility] [address] [place] [address] Cliff Segura MD [address] [place] [address] GILMAR (generalized anxiety disorder); Moderate episode of recurrent major depressive disorder (HCC) Allergies No known active allergiesdocumented as of this encounter (statuses as of 10/15/2023) Medications Medication Sig Dispensed Refills Start Date [...] the morning. 90 Tablet 1 08/29/2023 Active buPROPion HCl ER (XL) 150 MG [...] daily dose. 90 Capsule 1 10/15/2023 Active FLUoxetine HCl 20 MG Oral Capsule (PROzac)Indicati ons:GILMAR (generalized anxiety disorder) Take 1 capsule by mouth once daily. 90 Capsule 1 04/30/2023 4 Discontinued buPROPion HCl ER (XL) 150 MG Oral Tablet Extended Release 24 Hour (Wellbutrin XL)Indications:G AD (generalized anxiety disorder) Take 1 tablet by mouth every morning. 90 Tablet 1 05/01/2023 4 Discontinued FLUoxetine HCl 10 MG Oral Capsule (PROzac)Indicati ons:GILMAR (generalized anxiety disorder),Modera te episode of recurrent major depressive disorder (HCC) Take 1 capsule by mouth once daily. Add to 20 mg capsule for 30 mg total daily dose. 90 Capsule 1 05/01/2023 4 Discontinued documented as of this encounter (statuses as of 10/15/2023) Active Problems Problem Noted Date Diagnosed Date Maternal chronic hypertension, first trimester 0 07/19/2023 Overview: Obtain baseline lab work ARIES (if not already done) with assessment of proteinuria (24-hour urine protein or wsyslas-kx-kogjubenir ratio) and CBC, serum AST/ALT/creatinine. If patient [...] function stable. Patient had preconception counseling with [facility] licensed genetic counselor earlier this [...] indicated. H/O laminectomy 07/11/2023 Overview: Laminectomy in [place] in 2011. Will need anesthesia consult Last [...] as of this encounter (statuses as of 10/15/2023) Resolved Problems Problem Noted Date Diagnosed Date Resolved Date Supervision of normal first , antepartum 07/11/2023 10/09/2023 documented as of this encounter (statuses as of 10/15/2023) Immunizations Name Administration Dates Next Due Seasonal [...] money to get more. Never true 09/25/2023 [place] Depression Scale Answer Date Recorded [place] Depression Scale Total 5 07/11/2023 The thought [...] Telephone Encounter - Cliff Segura MD - 10/15/2023 8:36 AM EDT Signed Prescriptions: Disp Refills buPROPion HCl ER (XL) 150 MG Oral Tablet E*90 Tab*1 Sig: Take 1 tablet by mouth every morning. Authorizing Provider: CLIFF SEGURA FLUoxetine HCl 20 MG Oral Capsule (PROzac) 90 Cap*1 Sig: Take 1 capsule by mouth once daily. Authorizing Provider: CLIFF SEGURA FLUoxetine HCl 10 MG Oral Capsule (PROzac) 90 Cap*1 Sig: Take 1 capsule by mouth once daily. Add to 20 mg capsule for 30 mg total daily dose. Authorizing Provider: CLIFF SEGURA * Telephone Encounter - Julianne Tadeo [facility] - 10/11/2023 10:37 AM EDT Pending Prescriptions: Disp Refills buPROPion HCl ER (XL) 150 MG Oral Tablet E*90 Tab*0 Sig: Take 1 tablet by mouth every morning. FLUoxetine HCl 20 MG Oral Capsule [Pharmac*90 Cap*0 Sig: Take 1 capsule by mouth once daily. FLUoxetine HCl 10 MG Oral Capsule [Pharmac*90 Cap*0 Sig: Take 1 capsule by mouth once daily. Add to 20 mg capsule for 30 mg total daily do se. * Telephone Encounter - Julianne Tadeo RPh - 10/11/2023 10:30 AM EDT High risk with PKD. Follows MFM, nephrology. Please approve if appropriate. Thank you, Julianne Tadeo, PharmD Clinical Pharmacist Centralized Clinical Pharmacy Services ([facility]) 10/11/23 10:33 AM [phone] documented in this encounter Plan of Treatment Upcoming Encounters Date Type Department Care Team (Late st Contact Info) Description 11/06/2023 8:15 AM EDT [facility] [address] [address] Liliana Archer CRNP [address] [place] [address] 11/07/2023 8:45 AM EDT Imaging Radiology, [facility] [address] [place] [address] 12/06/2023 8:00 AM EDT Imaging Maternal Medicine [facility] [address] [address] 01/01/2024 8:45 AM EST Imaging Maternal Medicine [facility] Crystal Cee [address] [place] [address] Dr [address] [place] [address] 01/31/2024 8:00 AM EST Imaging Maternal Medicine Imaging, [facility] [address] [place] [phone] 05/26/2024 3:20 PM EDT Office Visit [facility] [address] [facility] [phone] Cliff Segura MD [address], [place] [id number] Health Maintenance Due Date Last Done Comments Depression Monitoring 2002 HPV (Gardasil) Vaccine (2 - 3-dose series) 07/23/2008 06/25/2008 COVID-19 Vaccine (2022- season) 2023 02/08/2021, 05/05/2020, 04/07/2020 Influenza Vaccine [...] as of this encounter Visit Diagnoses Diagnosis GILMAR (generalized anxiety disorder) Generalized anxiety disorder Moderate episode of recurrent major depressive disorder (HCC) documented in this encounter Care Teams Photography Spotter Relationship Specialty Start Date End Date Cliff Segura MD [address] [place] [address] PCP - General Family Medicine 01/11/22 documented as of this encounter
--- OUTSIDE RECORDS SUMMARY | 2024-01-31 22:34 | External Medical Summary ---
Author Name Unknown Address Unknown Organization [id number]:[facility]ORATORY [facility] [address] - [address] [place] [address] Laboratory Report Ordering Provider Test Date Status MANINDERAJIT 11/27/2023 09:35:36 Final Observation Date Value Abnormality Reference (Units ) Status Glucose [Moles/volume] in Serum or Plasma --1 hour post 50 g glucose PO 11/27/2023 09:35:36 88 70-129 (mg/dL) Final Performing Location [facility] [address] - [address] [place] [address]
--- OUTSIDE RECORDS SUMMARY | 2024-01-31 22:34 | External Medical Summary ---
Author Name Unknown Address Unknown Organization K01:[facility] [place] [address] [place] [address] Laboratory Report Ordering Provider Test Date Status AJIT DICKENS 11/27/2023 09:35:36 Final Observation Date Value Abnormality Reference (Units ) Status Ferritin 11/27/2023 09:35:36 32 13-150 (ng /mL) Final Performing Location [facility] [address] [place] [address]
--- OUTSIDE RECORDS SUMMARY | 2024-01-31 22:34 | External Medical Summary | Summary of Care ---
Author Name Unknown Organization [facility] Address [address] [place] [address] Phone [phone] Care Team Providers Care Mailroom Personnel Name Role Phone Chuyita Villegas MD Primary Care Provid er Reason for Visit * Reason Comments Return Visit Encounter Details Date Type Department Care Team ([facility] st Contact Info) Description 10/09/2023 1:45 PM EDT Office Visit Gynecology/Obstetric s [facility] Andrades [address] [facility] [place] [address] Gail Sparks CRNP [address] [place] [address] High-risk in second trimester*; Anxiety during ; H/O laminectomy; Rh negative status during in second trimester; Chronic hypertension affecting ; Renal disease during in second trimester Allergies No known active allergiesdocumented as of this encounter (statuses as of 10/09/2023) Medications Medication Sig Dispensed Refills Start Date [...] as of this encounter (statuses as of 10/09/2023) Active Problems Problem Noted Date Diagnosed Date Maternal chronic hypertension, first trimester 0 07/19/2023 Overview: Obtain baseline lab work ARIES (if not already done) with assessment of proteinuria (24-hour urine protein or thvqfyd-kv-chkckiaqnl ratio) and CBC, serum AST/ALT/creatinine. If patient [...] function stable. Patient had preconception counseling with [facility] licensed genetic counselor earlier this [...] indicated. H/O laminectomy 07/11/2023 Overview: Laminectomy in [place] in 2011. Will need anesthesia consult Last [...] as of this encounter (statuses as of 10/09/2023) Resolved Problems Problem Noted Date Diagnosed Date Resolved Date Supervision of normal first , antepartum 07/11/2023 10/09/2023 documented as of this encounter (statuses as of 10/09/2023) Immunizations Name Administration Dates Next Due Seasonal [...] money to get more. Never true 09/25/2023 [place] Depression Scale Answer Date Recorded [place] Depression Scale Total 5 07/11/2023 The thought [...] Sign Reading Time Taken Comments Blood Pressure 132/80 10/09/2023 1:49 PM EDT Pulse - - Temperature - - Respiratory Rate - - Oxygen Saturation - - Inhaled Oxygen Concentration - - Weight 73.9 kg (163 lb) 10/09/2023 1:49 PM EDT Height - - Body Mass Index 27.12 09/07/2023 9:03 AM EDT documented in this encounter Progress Notes * Yeni Khalil LPN - 10/09/2023 1:50 PM EDT 21w0d Denies vaginal bleeding/rom + movement No new concerns * Gail Sparks CRNP - 10/09/2023 1:49 PM EDT 21w0d Follows with MFM, nephrology. BP stable. She plans to discuss ASA use with her pallet assembler. No pain, bleeding. Not feeling movement yet. 4 week return ROBERTO Muñiz documented in this encounter Plan of Treatment Upcoming Encounters Date Type Department Care Team (Late st Contact Info) Description 11/06/2023 8:15 AM EDT Office Visit Gynecology/Obstetrics Garrett Andrades [address] [address] Liliana Archer CRNP [address] [place] [address] 11/07/2023 8:45 AM EDT Imaging Radiology, [facility] [address] [facility] [address] 12/06/2023 8:00 AM EDT Imaging Maternal Medicine Imaging, Shawn Andrades [address] [place] [phone] 01/01/2024 8:45 AM EST [facility] Crystal Cee [address] [place] [address] Dr [address] [place] [address] 01/31/2024 8:00 AM EST Imaging Maternal Medicine Imaging, [facility] [address] [place] [phone] 05/26/2024 3:20 PM EDT Office Visit [facility] [address] [place] [address] Chuyita Villegas MD [address] [facility] [address] Health Maintenance Due Date Last Done Comments [...] encounter Visit Diagnoses Diagnosis High-risk in second trimester- Primary Anxiety during H/O laminectomy Other postprocedural status Rh negative status during in second trimester Chronic hypertension affecting Renal disease during in second trimester documented in this encounter Care Teams Mailroom Personnel Relationship Specialty Start Date End Date Chuyita Villegas MD [address] [place] [facility] [place] [address] PCP - General Family Medicine 01/11/22 documented as of this encounter
--- OUTSIDE RECORDS SUMMARY | 2024-01-31 22:34 | External Medical Summary | Summary of Care ---
Author Name Unknown Organization [facility] Address [address] [place] [address] Phone [phone] Care Team Providers Care Configuration Consultant Name Role Phone Chuyita Villegas MD Primary Care Provid er Encounter Details Date Type Department Care Team (Late st Contact Info) Description 10/05/2023 8:30 AM EDT Office Visit Health Underwriter OB Maternal Medicine [facility] Crystal Cee [address] [place] [address] Dr [address] [place], [place] [id number] Mick Ortega MD [address] [place] [address] Polycystic kidney disease*; Rh negative status during in second trimester; Maternal chronic hypertension, first trimester Allergies No known active allergiesdocumented as of this encounter (statuses as of 10/05/2023) Medications Medication Sig Dispensed Refills Start Date [...] as of this encounter (statuses as of 10/05/2023) Active Problems Problem Noted Date Diagnosed Date Maternal chronic hypertension, first trimester 0 07/19/2023 Overview: Obtain baseline lab work ARIES (if not already done) with assessment of proteinuria (24-hour urine protein or biyopis-ro-vtrlnfhdrv ratio) and CBC, serum AST/ALT/creatinine. If patient [...] the fetus is in the vertex presentation. , supervision, high-risk, first trimest er 07/19/2023 [...] 07/11/2023 H/O laminectomy 07/11/2023 Overview: Laminectomy in [place] in 2011. Will need anesthesia consult Last [...] as of this encounter (statuses as of 10/05/2023) Immunizations Name Administration Dates Next Due Seasonal [...] money to get more. Never true 09/25/2023 [employer] Depression Scale Answer Date Recorded [employer] Depression Scale Total 5 07/11/2023 The thought [...] No 09/25/2023 Does the household have a [facility] income? (Household - for [...] as of this encounter Progress Notes * Mick Ortega MD - 10/05/2023 8:43 AM EDT MATERNAL MEDICINE VISIT Gail Ba is at 20w3d who presents to [facility] for an ultrasound and follow-up of her high risk . The patient is currently 20 weeks and 3 days gestation with a maternal polycystic kidney disease and chronic hypertension on medication. Her creatinine on July 10 was normal at 0.7. She comes in osvaldo evaluation of anatomy. She is being seen today by Maternal- Medicine for the following reasons: Problem List Items Addressed This Visit Polycystic kidney disease - Primary Relevant Orders [facility] US PREG FOLLOW UP EACH FETUS Rh negative status during Relevant Orders [facility] US PREG FOLLOW UP EACH FETUS Maternal chronic hypertension, first trimester I reviewed the ultrasound with her. The anatomy that was visualized appears unremarkable and the biometry is appropriate for the gestational age. The amniotic fluid volume is subjectivelynormal and the fetus is in the vertex presentation. Relevant Orders [facility] US PREG FOLLOW UP EACH FETUS We reviewed today's ultrasound findings. (For full report, please refer to ultrasound report provided separately). Ms. Ba's questions were answered to her satisfaction. RECOMMENDATIONS: Recommend surveillance starting at 32 weeks secondary to chronic hypertension on medication. Recommend follow up ultrasound with [facility] in 4 weeks for growth secondary to chronic hypertension on medication. Thank you for allowing us to participate in the care of this patient. Please call with any questions. Mick Ortega MD 10/05/2023 8:43 AM documented in this encounter Miscellaneous Notes * Assessment & Plan Note - Mick Ortega MD - 10/05/2023 9:15 AM EDT Associated Problem(s): Maternal chronic hypertension, first trimester I reviewed the ultrasound with her. The anatomy that was visualized appears unremarkable and the biometry is appropriate for the gestational age. The amniotic fluid volume is subjectivelynormal and the fetus is in the vertex presentation. documented in this encounter Plan of Treatment Upcoming Encounters Date Type Department Care Team (Late st Contact Info) Description 10/09/2023 1:45 PM EDT Office Visit Gynecology/Obstetrics Garrett Abraham [address] [place] [address] Back[place], ROBERTO Rivera [address] [place] [address] 11/07/2023 8:45 AM EDT Imaging Radiology, [facility] [address] [place] [address] 12/06/2023 8:00 AM EDT Imaging Maternal Medicine Imaging, Shawn Abraham [address] [place] [address] 01/01/2024 8:45 AM EST Imaging Maternal Medicine [facility] Crystal Cee [address] [place] [address] [address] [place] [address] 01/31/2024 8:00 AM EST Imaging Maternal Medicine Imaging, Shawn Andrades [address] [place] [address] 02/19/2024 2:00 PM EST Office Visit Nephrology, [facility] [address] [facility] [place] [address] Sagar Bearden MD [address] [facility] [place] [address] 05/26/2024 3:20 PM EDT Office Visit [address] [address] Chuyita Villegas MD [address] [place] [address] Scheduled Orders Name Type Priority Associated Diagnoses Orde r Schedule MFM US PREG FOLLOW UP EACH FETUS Medical Imaging Routine Polycystic kidney disease Rh negative status during in second trimester Maternal chronic hypertension, first trimester 9 Occurrences starting 10/05/2023 until 04/04/2024 Health Maintenance Due Date Last Done Comments Depression Monitoring 2002 HPV (Gardasil) Vaccine (2 - 3-dose series) 07/23/2008 06/25/2008 COVID-19 Vaccine (4 - 2023-24 season) 2022 02/08/2021, 05/05/2020, 04/07/2020 Influenza Vaccine [...] this encounter Visit Diagnoses Diagnosis Polycystic kidney disease- Primary Polycystic kidney, unspecified type Rh negative status during in second trimester Maternal chronic hypertension, first trimester documented in this encounter Care Teams Configuration Consultant Relationship Specialty Start Date End Date Chuyita Villegas MD [address] [place] [address] PCP - General Family Medicine 01/11/22 documented as of this encounter
--- OUTSIDE RECORDS SUMMARY | 2024-01-31 22:34 | External Medical Summary ---
Author Name Unknown Address Unknown Organization [id number]:LABORATORY [facility] - [address] [place] [address] Laboratory Report Ordering Provider Test Date Status AJIT DICKENS 11/27/2023 09:35:36 Final Observation Date Value Abnormality Reference (Units ) Status TSH 11/27/2023 09:35:36 1.59 0.27-4.20 (uIU/mL) Final Performing Location [facility] - [address] [place] [address]
--- OUTSIDE RECORDS SUMMARY | 2024-01-31 22:34 | External Medical Summary ---
Author Name Unknown Address Unknown Organization [id number][place] [place] [address] [facility] [place] [address] Laboratory Report Ordering Provider Test Date Status AJIT DICKENS 11/27/2023 09:35:36 Final Observation Date Value Abnormality Reference (Units ) Status SYNC LEUKOCYTES IN BLOOD BY AUTOMATED COUNT 11/27/2023 09:35:36 9.10 4.00-10.80 (K/uL) Final Segs 11/27/2023 09:35:36 77.7 Above high normal 40.0-75.0 (%) Final Lymphs % 11/27/2023 09:35:36 14.3 Below low normal 18.0-42.0 (%) Final Monos 11/27/2023 09:35:36 6.4 1.0-11.0 (%) Final Eosinophils 11/27/2023 09:35:36 0.9 0.0-6.0 (%) Final Basos 11/27/2023 09:35:36 0.2 0.0-2.0 (%) Final Immature Granulocyte, Percent 11/27/2023 09:35:36 0.5 0.0-2.0 (%) Final Absolute Segs 11/27/2023 09:35:36 7.07 1.80-7.70 (K/uL) Final Lymphs, absolute 11/27/2023 09:35:36 1.30 1.00-4.80 (K/ul) Final Monos, Abs 11/27/2023 09:35:36 0.58 0.00-1.10 (K/uL) Final Eos, Abs 11/27/2023 09:35:36 0.08 0.00-0.70 (K/uL) Final Basos, Abs 11/27/2023 09:35:36 0.02 0.00-0.20 (K/uL) Final Immature Granulocytes, Number 11/27/2023 09:35:36 0.05 0.00-0.20 (K/uL) Final Performing Location [facility] [place] [address] [facility] [address]
--- OUTSIDE RECORDS SUMMARY | 2024-01-31 22:34 | External Medical Summary ---
Author Name Unknown Address Unknown Organization K01:[facility] [place] [address] [facility] [address] Laboratory Report Ordering Provider Test Date Status AJIT DICKENS 11/27/2023 09:35:36 Final Observation Date Value Abnormality Reference (Units ) Status Treponema pallidum Ab [Presence] in Serum by Immunoassay 11/27/2023 09:35:36 Nonreactive Nonreactive Final No serologic evidence of syp hilis. No additional testing clinicially indicated at this time. Consider repeat testing in 2-4 weeks if acute or primary syphilis is suspected. Performing Location [facility] [place] [address] [place] [address]
--- OUTSIDE RECORDS SUMMARY | 2024-01-31 22:34 | External Medical Summary ---
Author Name Unknown Address Unknown Organization K01:LAB[facility]ATORY [facility] [place] - [address] [place] [address] Laboratory Report Ordering Provider Test Date Status AJIT DICKENS 11/27/2023 09:35:36 Final Observation Date Value Abnormality Reference (Units ) Status Vitamin B12 11/27/2023 09:35:36 [phone] (pg/mL) Final Performing Location LABORATORY [facility] - [address] [place] [address]
--- OUTSIDE RECORDS SUMMARY | 2024-01-31 22:34 | External Medical Summary ---
Author Name Unknown Address Unknown Organization [id number][place] [address] [place] [address] Laboratory Report Ordering Provider Test Date Status AJIT DICKENS 11/27/2023 09:35:36 Final Observation Date Value Abnormality Reference (Units ) Status Folic Acid 11/27/2023 09:35:36 >20.0 >4.5 (ng/ mL) Final Performing Location [facility] - [address] [place] [address]
--- OUTSIDE RECORDS SUMMARY | 2024-01-31 22:34 | External Medical Summary | Summary of Care ---
Author Name Unknown Organization [facility] Address [address] [facility] [place] [address] Phone [phone] Care Team Providers Care Lace Machine Operator Name Role Phone Chuyita Villegas MD Primary Care Provid er Encounter Details Date Type Department Care Team ([facility] st Contact Info) Description 07/20/2023 Telephone Gynecology/Obstetrics [facility] [address] [place] [address] Liliana Archer CRNP [address] [facility] [place] [address] Allergies No known active allergiesdocumented as of [...] assessment of proteinuria (24-hour urine protein or qwehtfi-ae-joujllzfsc ratio) and CBC, serum AST/ALT/creatinine. If patient [...] assessment of proteinuria (24-hour urine protein or tkkizfx-kk-puxuewnsks ratio) and CBC, serum AST/ALT/creatinine. If patient [...] function stable. Patient had preconception counseling with [facility] licensed genetic counselor earlier this year. [...] 07/11/2023 H/O laminectomy 07/11/2023 Overview: Laminectomy in [place] in 2011. Will need anesthesia consult Last [...] money to get more. Never true 11/21/2022 [employer] Depression Scale Answer Date Recorded Fisher Depression Scale Total 5 07/11/2023 The thought [...] Telephone Encounter - Luisa Gusman RN - 07/20/2023 11:33 AM EDT Patient called back in and made aware of message below. Patient verbalized understanding to all. She is going to contact her PCP about this and will follow back up with us when she speaks to them. Just sending back as FYI. * Telephone Encounter - Jazmine Moeller LPN - 07/20/2023 11:29 AM EDT left message for patient to call office * Telephone Encounter - Liliana Archer CRNP - 07/20/2023 10:24 AM EDT Can you please reach out to pt to discuss the following MFM recommendation: As brain aneurysm occurs more frequently for women with polycystic kidney disease, we recommend maternal MRI of head to evaluate for presence of aneurysms and, if present, then neurology consult for delivery recommendations. I personally have never ordered a MRI for this. Is patient willing and able to discuss with her PCP? documented in this encounter Plan of Treatment Upcoming Encounters Date Type Department Care Team (Late st Contact Info) Description 09/07/2023 9:00 AM EDT Office [facility] [address] [place] [address] Nieves Lara PA-C [address] [place] [address] 10/05/2023 8:30 AM EDT Office Visit [employer] OB Maternal Medicine [facility] Crystal Cee [address] [place] [address] [address] [place] [address] Mick Ortega MD [address] [place] [address] 10/05/2023 8:30 AM EDT Imaging Maternal Medicine [facility] Crystal Cee [address] [place] [address] Dr [address] [place] [address] 02/19/2024 2:00 PM EST Office Visit NephrologySarah [address] [place] [place] [address] Sagar Bearden MD [address] [facility] [place] [address] 05/26/2024 3:20 PM EDT Office Visit [address] [phone] Chuyita Villegas MD [address] [place] [address] Health Maintenance Due Date Last Done Comments [...] filedocumented as of this encounter Care Teams Lace Machine Operator Relationship Specialty Start Date End Date Chuyita Villegas MD [address] [place] [address] PCP - General Family Medicine 01/11/22 documented as of this encounter
--- OUTSIDE RECORDS SUMMARY | 2024-01-31 22:34 | External Medical Summary ---
Author Name Unknown Address Unknown Organization K01:[facility] [place] [address] [facility] [address] Laboratory Report Ordering Provider Test Date Status AJIT DICKENS 11/27/2023 09:35:36 Final Observation Date Value Abnormality Reference (Units ) Status Iron 11/27/2023 09:35:36 104 33-151 (ug /dL) Final Iron-binding capacity 11/27/2023 09:35:36 356 250-425 (ug/dL) Final Transferrin Sat % 11/27/2023 09:35:36 29 15 -55 (%) Final Performing Location LABOR[facility]ORY [facility] [place] [address] [place] [address]
--- OUTSIDE RECORDS SUMMARY | 2024-01-31 22:34 | External Medical Summary | Summary of Care ---
Author Name Unknown Organization [facility] Address [address] [place] [address] Phone [phone] Care Team Providers Care Automatic Lathe Operator Name Role Phone Chuyita Villegas MD Primary Care Provid er Reason for Visit * Reason Comments Return Visit Encounter Details Date Type Department Care Team ([facility] st Contact Info) Description 11/06/2023 8:15 AM EDT Office Visit Gynecology/Obstetric s Garrett Abraham [address] [place] [address] Liliana Archer CRNP [address] [place] [address] High-risk in second trimester*; Medical marijuana use; Renal disease during in second trimester; Anxiety during ; H/O laminectomy; Rh negative status during in second trimester; Maternal chronic hypertension, first trimester Allergies No known active allergiesdocumented as of this encounter (statuses as of 11/06/2023) Medications Medication Sig Dispensed Refills Start Date [...] as of this encounter (statuses as of 11/06/2023) Active Problems Problem Noted Date Diagnosed Date Maternal chronic hypertension, first trimester 0 07/19/2023 Overview: Obtain baseline lab work ARIES (if not already done) with assessment of proteinuria (24-hour urine protein or epifxtz-lk-fmveghcbdn ratio) and CBC, serum AST/ALT/creatinine. If patient [...] indicated. H/O laminectomy 07/11/2023 Overview: Laminectomy in [place] in 2011. Will need anesthesia consult Last [...] as of this encounter (statuses as of 11/06/2023) Resolved Problems Problem Noted Date Diagnosed Date Resolved Date Supervision of normal first , antepartum 07/11/2023 10/09/2023 documented as of this encounter (statuses as of 11/06/2023) Immunizations Name Administration Dates Next Due Seasonal [...] money to get more. Never true 09/25/2023 [place] Depression Scale Answer Date Recorded [place] Depression Scale Total 5 07/11/2023 The thought [...] Sign Reading Time Taken Comments Blood Pressure 126/84 11/06/2023 8:13 AM EDT Pulse - - Temperature - - Respiratory Rate - - Oxygen Saturation - - Inhaled Oxygen Concentration - - Weight 76.2 kg (168 lb) 11/06/2023 8:13 AM EDT Height 165.1 cm (5' 5") 11/06/2023 8:13 AM EDT Body Mass Index 27.96 11/06/2023 8:13 AM EDT documented in this encounter Progress Notes * Liliana Archer CRNP - 11/06/2023 8:22 AM EDT 25w No concerns. Baby is active. No contractions, bleeding, LOF. Glucola with next visit. ROBERTO Nuñez documented in this encounter Nursing Notes * Ivonne Winkler LPN - 11/06/2023 8:15 AM EDT 24w6d Denies concerns Patient here for FLU injection. Patient doing well no complaints. Injection given IM as ordered. Patient tolerated well. Patient to follow up as directed. Patient instructed to call if any complications. Patient verbalized understanding of instructions given and her follow up appt for ZARA Injection site: Left Deltoid Medication Source: Dispensed stock medication documented in this encounter Plan of Treatment Upcoming Encounters Date Type Department Care Team (Late st Contact Info) Description 11/07/2023 8:45 AM EDT Imaging Radiology, [facility] [address] [facility] [address] 11/27/2023 8:30 AM EDT Office Visit Gynecology/Obstetrics [address] [place] [address] Backer, ROBERTO Rivera [address] [address] 11/27/2023 8:30 AM EDT Laboratory Laboratory, [facility] [address] [place] [phone] [facility] [address] [place] [address] 12/06/2023 8:00 AM EDT Imaging Maternal Medicine Imaging, Shawn Abraham [address] [place] [phone] 01/01/2024 8:45 AM EST Imaging [facility] Medicine [facility] Crystal Cee [address] [place] [address] [address] [place] [address] 01/31/2024 8:00 AM EST Imaging Maternal Medicine Imaging, Shawn Abraham [address] [place] [address] 05/26/2024 3:20 PM EDT Office Visit [facility] [address] [place] [phone] Chuyita Villegas MD [address] [place] [address] Scheduled Orders Name Type Priority Associated Diagnoses Orde r Schedule 50-G GESTATIONAL GLUCOSE, 1 HOUR Lab Routine High-risk in second trimester Expected: 12/07/2023 (Approximate), Expires: 11/05/2024 CBC WITH WBC DIFFERENTIAL AND ANEMIA REFLEX WORKUP Lab Routine High-risk in second trimester Expected: 12/07/2023 (Approximate), Expires: 11/05/2024 SYPHILIS ANTIBODY SCREEN WITH REFLEX TO RPR Lab Routine High-risk in second trimester Expected: 12/07/2023 (Approximate), Expires: 11/05/2024 TYPE AND SCREEN Lab Routine Rh negative status during in second trimester High-risk in second trimester Expected: 12/07/2023 (Approximate), Expires: 12/06/2024 Health Maintenance Due Date Last Done Comments Depression Monitoring 2002 HPV (Gardasil) Vaccine (2 - 3-dose series) 07/23/2008 06/25/2008 COVID-19 Vaccine (2023- season) 2023 02/08/2021, 05/05/2020, 04/07/2020 GFR 07/10/2024 [...] Diagnoses Diagnosis High-risk in second trimester- Primary Medical marijuana use Encounter for long-term (current) use of other medications Renal disease during in second trimester Anxiety during H/O laminectomy Other postprocedural status Rh negative status during in second trimester Maternal chronic hypertension, first trimester documented in this encounter Care Teams Automatic Lathe Operator Relationship Specialty Start Date End Date Chuyita Villegas MD [address] [place] [address] PCP - General Family Medicine 01/11/22 documented as of this encounter
--- OUTSIDE RECORDS SUMMARY | 2024-01-31 22:34 | External Medical Summary ---
Author Name Unknown Address Unknown Organization K01:[facility] [place] [address] [facility] [address] Laboratory Report Ordering Provider Test Date Status AJIT DICKENS 11/27/2023 09:35:36 Final Observation Date Value Abnormality Reference (Units ) Status WBC, Total 11/27/2023 09:35:36 9.10 4.00-10.8 0 (K/uL) Final RBC 11/27/2023 09:35:36 3.87 3.85-5.15 (M/uL) Final Hemoglobin 11/27/2023 09:35:36 11.8 Below low normal 12 .0-15.3 (g/dL) Final Anemia reflex testing trigge rs on a HGB < 12.0 for Females and HGB < 13.0 for Males in accordance with the WHO Anemia Guidelines
Anemia reflex testing triggers on a HGB < 12.0 for Females and HGB < 13.0 for Males in accordance with the WHO Anemia Guidelines HCT 11/27/2023 09:35:36 36.0 36.0-45.2 (%) Final MCV 11/27/2023 09:35:36 93.0 81.5-97.5 (fL) Final MCH 11/27/2023 09:35:36 30.5 27.0-34.0 (pg) Final MCHC 11/27/2023 09:35:36 32.8 32.0-36.0 (g/dL) Final RDW 11/27/2023 09:35:36 12.5 11.5-15.5 (%) Final Platelets 11/27/2023 09:35:36 263 140-400 (K /uL) Final MPV 11/27/2023 09:35:36 10.0 6.6-11.1 ( fL) Final Nucleated erythrocytes/100 leukocytes [Ratio] in Blood by Automated count 11/27/2023 09:35:36 0 <=0 (/100 WBCs) Fi nal Performing Location [facility] - [address] [facility] [address]
--- OUTSIDE RECORDS SUMMARY | 2024-01-31 22:34 | External Medical Summary | Summary of Care ---
Author Name Unknown Organization [facility] Address [address] [place] [address] Phone [phone] Care Team Providers Care Production Operations Manager Name Role Phone Chuyita Villegas MD Primary Care Provid er Reason for Visit * Reason Onset Date Comments Test Results 10/01/2023 Encounter Details Date Type Department Care Team ([facility] st Contact Info) Description 10/01/2023 Telephone NephrologySarah [address] [place] [address] Sagar Bearden MD [address] [facility] [place] [address] Test Results Allergies No known active allergiesdocumented as of this encounter (statuses as of 10/01/2023) Medications Medication Sig Dispensed Refills Start Date [...] as of this encounter (statuses as of 10/01/2023) Active Problems Problem Noted Date Diagnosed Date Maternal chronic hypertension, first trimester 0 07/19/2023 Overview: Obtain baseline lab work ARIES (if not already done) with assessment of proteinuria (24-hour urine protein or njqpprp-gh-fkkbkchwgb ratio) and CBC, serum AST/ALT/creatinine. If patient [...] assessment of proteinuria (24-hour urine protein or njniptl-dp-nyrextqpiw ratio) and CBC, serum AST/ALT/creatinine. If patient [...] function stable. Patient had preconception counseling with [facility] licensed genetic counselor earlier this year. Declined [...] 07/11/2023 H/O laminectomy 07/11/2023 Overview: Laminectomy in [place] in 2011. Will need anesthesia consult Last [...] as of this encounter (statuses as of 10/01/2023) Immunizations Name Administration Dates Next Due Seasonal [...] money to get more. Never true 09/25/2023 Maramec Depression Scale Answer Date Recorded Maramec Depression Scale Total 5 07/11/2023 The thought [...] No 09/25/2023 Does the household have a [facility] source [facility] income? (Household - [...] encounter Miscellaneous Notes * Telephone Encounter - Petra Garrett LPN - 10/01/2023 1:23 PM EDT MyG sent * Telephone Encounter - Petra Garrett LPN - 10/01/2023 1:23 PM EDT ----- Message from Sagar Bearden MD sent at 10/01/2023 12:55 PM EDT ----- Normal MR angiogram. No aneurysm documented in this encounter Plan of Treatment Upcoming Encounters Date Type Department Care Team (Late st Contact Info) Description 10/05/2023 8:30 AM EDT Office Visit [facility]er OB Maternal Medicine [facility] Crystal Cee [address] [place] [address] Dr [address] [place] [address] [facility]te[facility] [address] [facility] [address] 10/05/2023 8:30 AM EDT Imaging Maternal Medicine [facility] Crystal Cee [address] [place] [address] Dr [address] [place] [address] 10/09/2023 1:45 PM EDT Office Visit Gynecology/Obstetrics [facility] [address] [facility] [place] [address] Gail Sparks CRNP [address] [facility] [place] [address] 02/19/2024 2:00 PM EST Office Visit Nephrology, [facility] [address] [facility] [place] [address] Sagar Bearden MD [address] [place] [address] 05/26/2024 3:20 PM EDT Office Visit [facility] [address] [place] [address] Chuyita Villegas MD [address], [place] [id number] Health Maintenance Due Date Last Done Comments [...] filedocumented as of this encounter Care Teams Production Operations Manager Relationship Specialty Start Date End Date Chuyita Villegas MD [address] [place] [address] PCP - General Family Medicine 01/11/22 documented as of this encounter
[2024-01-31] MEDS: LABETALOL HCL IV 5 MG/ML 20ML IV STA (23:43)
[2024-01-31 23:55] LABS: Creatinine Urine Random 35.3 mg/dl; Protein Creatinine Ratio Urine 2.5 (0-0.2); Total Protein Urine Random 86.8 mg/dl (0-11.9)
[2024-01-31 23:56] LABS: Amphetamines+Metham, Urine Neg (Neg); Barbiturates, Urine Neg (Neg); Benzodiazepine, Urine Neg (Neg); Cocaine, Urine Neg (Neg); Fentanyl, Urine Neg (Neg); MDMA (Ecstacy), Urine Neg (Neg); Marijuana, Urine Neg (Neg); Methadone, Urine Neg (Neg); Opiate, Urine Neg (Neg); Phencyclidine, Urine Neg (Neg)
[2024-01-31 23:57] LABS: Basophils # (auto) 0.03 K/uL (0.00-0.20); Basophils % (auto) 0.4 %; Eosinophils # (auto) 0.13 K/uL (0.00-0.50); Eosinophils % (auto) 1.7 %; Hematocrit (blood only) 31.7 % (37.0-47.0); Hemoglobin 10.7 g/dl (12.0-16.0); Immature Granulocytes # (auto) 0.04 K/uL (0.01-0.20); Immature Granulocytes % (auto) 0.5 %; Lymphocytes # (auto) 1.81 K/uL (1.20-3.40); Lymphocytes % (auto) 23.2 %; Mean Corpuscular Hemoglobin 29.4 pg (25.0-34.0); Mean Corpuscular Hgb Conc 33.8 g/dL (32.0-36.0); Mean Corpuscular Volume 87.1 fL (80.0-100.0); Mean Platelet Volume 11.2 fL (9.4-12.4); Monocytes # (auto) 0.69 K/uL (0.11-0.59); Monocytes % (auto) 8.9 %; Neutrophils # (auto) 5.09 K/uL (1.40-6.50); Neutrophils % (auto) 65.3 %; Platelet Count 143 K/uL (130-400); RDW Coefficient of Variation 12.7 % (11.5-14.5); RDW Standard Deviation 40.1 fL (36.4-46.3); Red Blood Count 3.64 M/uL (4.20-5.40); White Blood Count 7.79 K/ul (4.8-10.8)
--- NOTE | 2024-02-01 00:09 | History & Physical Report ---
Date of Service February 01, 2024 Assessment & Plan (1) Pre-eclampsia affecting , antepartum: Plan: Start Magnesium sulfate Labetalol for BP elevation induction of labor History of Present Illness Chief Complaint: elevated BP Primary Care Provider: Chuyita Villegas MD 33 F P0000 at 37.2 weeks presents to L&D with elevated BP noted at home. She denies headache, visual changes or swelling in hands, face or feet. Allergies Allergy/AdvReac Type Severity Reaction Status Date / Time No Known Allergies Allergy Unverified 01/22/24 14:49 Home Medications Medication Instructions Recorded Confirmed Type 1 tab PO DAILY 01/22/24 02/01/24 History amlodipine 5 mg tablet 5 mg PO DAILY 01/22/24 02/01/24 History aspirin 81 mg capsule 81 mg PO DAILY 01/22/24 02/01/24 History bupropion HCl 150 mg 24 hr tablet, 150 mg PO QAM 01/22/24 02/01/24 History extended release fluoxetine 20 mg capsule 40 mg PO DAILY 01/22/24 02/01/24 History propranolol 80 mg capsule,24 80 mg PO DAILY 01/22/24 02/01/24 History hr,extended release Patient History Medical History Anxiety with depression History of eczema Polycystic kidney disease Surgical History History of lumbar fusion L4-S1 decompression/fusion (2011) Social History Smoking Status: Never smoker Do You Dip or Chew Tobacco: No; Hx Alcohol Use: No Hx Substance Use: Yes Last Used Substance Other:: Prior to Preferred Language: American Desk Editor Required: No Beliefs That Will Affect Care: None marital status: Current Living Situation: Family Other Information That Helps Us Care for You: No OB History primip DISTRIBUTION MANAGER History neg Review of Systems All systems reviewed & are unremarkable except as noted in HPI & below Physical Exam Constitutional: WD/WN, vitals as above Eyes: PERRL, conjunctivae normal, anicteric sclerae Respiratory: normal respiratory effort, lungs clear to auscultation Cardiovascular: Rate/Rhythm: regular rate and regular rhythm Gastrointestinal (Abdomen): Inspection/Auscultation: abdomen normal to inspection Musculoskeletal: Extremities: extremities normal to inspection no lower extremity edema Skin: no rashes, warm and dry Neurologic: patellar DTR's 2+ bilat, sensation intact Psychiatric: A+Ox3, euthymic affect Genitourinary: no vaginal lesions, no adnexal mass Manual OB Exam: + cervical dilation fingertip, + cervical effacement 50% and + station high OB Exam Monitor Tracing: + external FHT monitor used, + external uterine monitor used, + category I and + normal FHT variability Results & Data Vital Signs (Past 12 Hours) Vital Signs Temp Pulse Resp BP 02/01/24 00:00 78 178/95 H 01/31/24 23:55 75 01/31/24 23:55 158/91 H 01/31/24 23:50 74 01/31/24 23:50 149/88 H 01/31/24 23:47 80 01/31/24 23:47 143/84 H 01/31/24 23:43 153/93 H 01/31/24 23:43 75 01/31/24 23:43 153/93 H 01/31/24 23:13 76 01/31/24 23:13 171/109 H 01/31/24 22:57 36.9 C 18 01/31/24 22:44 75 170/106 H Laboratory Results Laboratory Results - last 72 hr 01/31/24 01/31/24 23:00 23:33 WBC 7.79 RBC 3.64 L Hgb 10.7 L Hct 31.7 L MCV 87.1 MCH 29.4 MCHC 33.8 RDW Std Deviation 40.1 RDW Coeff of Rosa Isela 12.7 Plt Count 143 MPV 11.2 Immature Gran % (Auto) 0.5 Neut % (Auto) 65.3 Lymph % (Auto) 23.2 [place] % (Auto) 8.9 Eos % (Auto) 1.7 Baso % (Auto) 0.4 Neut # (Auto) 5.09 Lymph # (Auto) 1.81 [place] # (Auto) 0.69 H Eos # (Auto) 0.13 Baso # (Auto) 0.03 Immature Gran # (Auto) 0.04 Ur Random Creatinine 35.3 U Random Total Protein 86.8 H Protein/Creatinin Ratio 2.5 H Urine Opiates Screen Neg Ur Methadone, Qual Neg Urine Fentanyl Screen Neg Urine Barbiturates Neg Ur Phencyclidine (PCP) Neg U Amphetamin/Meth Scrn Neg MDMA (Ecstasy) Screen Neg U Benzodiazepines Scrn Neg Ur Cocaine Metabolite Neg U Marijuana (THC) Screen Neg Diagnostic Findings Laboratory Results - last 72 hr 01/31/24 01/31/24 23:00 23:33 WBC 7.79 RBC 3.64 L Hgb 10.7 L Hct 31.7 L MCV 87.1 MCH 29.4 MCHC 33.8 RDW Std Deviation 40.1 RDW Coeff of Rosa Isela 12.7 Plt Count 143 MPV 11.2 Immature Gran % (Auto) 0.5 Neut % (Auto) 65.3 Lymph % (Auto) 23.2 [place] % (Auto) 8.9 Eos % (Auto) 1.7 Baso % (Auto) 0.4 Neut # (Auto) 5.09 Lymph # (Auto) 1.81 [place] # (Auto) 0.69 H Eos # (Auto) 0.13 Baso # (Auto) 0.03 Immature Gran # (Auto) 0.04 Sodium 135 L Potassium 3.9 Chloride 106 Carbon Dioxide 21 Anion Gap 8 BUN 14 Creatinine 0.80 Est Cr Clr Drug Dosing 108.7 eGFR 99.71 BUN/Creatinine Ratio 17.5 Glucose 93 Calcium 8.1 L Total Bilirubin 0.2 AST 32 ALT 30 Alkaline Phosphatase 105 H Total Protein 6.0 Albumin 3.2 L Globulin 2.8 Albumin/Globulin Ratio 1.1 Ur Random Creatinine 35.3 U Random Total Protein 86.8 H Protein/Creatinin Ratio 2.5 H Urine Opiates Screen Neg Ur Methadone, Qual Neg Urine Fentanyl Screen Neg Urine Barbiturates Neg Ur Phencyclidine (PCP) Neg U Amphetamin/Meth Scrn Neg MDMA (Ecstasy) Screen Neg U Benzodiazepines Scrn Neg Ur Cocaine Metabolite Neg U Marijuana (THC) Screen Neg Monitoring External Monitor Cat 1
[2024-02-01 00:10] LABS: Albumin Globulin Ratio 1.1 (0.9-2); Albumin Level 3.2 gm/dl (3.4-5.0); BUN Creatinine Ratio 17.5 (10-20); Bilirubin,Total 0.2 mg/dl (0.2-1.0); Calcium 8.1 mg/dl (8.6-10.3); Creatinine Clr Calc Pharmacy 108.7 ml/min; Globulin 2.8 gm/dl (2.5-4.0); Potassium 3.9 mmol/L (3.5-5.1)
[2024-02-01] MEDS: MAGNESIUM SULFATE / WTR 40 GM/1,000 ML BAG IV SCH ×3 (00:30→21:55)
[2024-02-01] MEDS: MAG SULFATE 4GM BOLUS FROM BAG IV ONE (00:31)
[2024-02-01] MEDS: miSOPROStoL 50 MCG TAB PO STA (01:06)
[2024-02-01] MEDS: ACETAMINOPHEN 500 MG TAB PO PRN (02:45)
[2024-02-01] MEDS ORDERED: CALCIUM CARBONATE 500 MG CHEWABLE TAB PO PRN ×2 (03:06→21:22)
[2024-02-01] MEDS ORDERED: LIDOCAINE 1% LOCAL 20 ML VIAL INFIL PRN (03:06)
[2024-02-01] MEDS ORDERED: OXYTOCIN 30 UNITS/NSS 30 UNITS/500 ML BAG IV PRN (03:06)
[2024-02-01] MEDS: miSOPROStoL 50 MCG TAB PO SCH (05:15)
[2024-02-01] MEDS: LABETALOL HCL 100 MG TAB PO SCH ×2 (07:22→08:27)
[2024-02-01] MEDS: LABETALOL HCL IV 5 MG/ML 20ML IV STA (07:51)
[2024-02-01 07:57] LABS: Basophils # (auto) 0.03 K/uL (0.00-0.20); Basophils % (auto) 0.4 %; Eosinophils # (auto) 0.11 K/uL (0.00-0.50); Eosinophils % (auto) 1.6 %; Hematocrit (blood only) 36.9 % (37.0-47.0); Hemoglobin 12.2 g/dl (12.0-16.0); Immature Granulocytes # (auto) 0.04 K/uL (0.01-0.20); Immature Granulocytes % (auto) 0.6 %; Lymphocytes % (auto) 21.7 %; Mean Corpuscular Hemoglobin 29.5 pg (25.0-34.0); Mean Corpuscular Hgb Conc 33.1 g/dL (32.0-36.0); Mean Corpuscular Volume 89.1 fL (80.0-100.0); Mean Platelet Volume 11.2 fL (9.4-12.4); Monocytes # (auto) 0.59 K/uL (0.11-0.59); Monocytes % (auto) 8.5 %; Neutrophils # (auto) 4.64 K/uL (1.40-6.50); Neutrophils % (auto) 67.2 %; Platelet Count 164 K/uL (130-400); RDW Coefficient of Variation 12.8 % (11.5-14.5); RDW Standard Deviation 41.8 fL (36.4-46.3); Red Blood Count 4.14 M/uL (4.20-5.40); White Blood Count 6.91 K/ul (4.8-10.8)
[2024-02-01 07:58] LABS: Albumin Globulin Ratio 1.1 (0.9-2); Albumin Level 3.3 gm/dl (3.4-5.0); BUN Creatinine Ratio 14.3 (10-20); Bilirubin,Total 0.2 mg/dl (0.2-1.0); Calcium 8.5 mg/dl (8.6-10.3); Creatinine Clr Calc Pharmacy 103.5 ml/min; Magnesium Therapeutic L&D Only 5.9 mg/dL (4.0-8.0); Potassium 4.3 mmol/L (3.5-5.1); Total Protein 6.3 gm/dl (6.0-8.3); Uric Acid 7.6 mg/dl (2.6-7.2)
--- NOTE | 2024-02-01 08:38 | Obstetrical Progress Note ---
Date of Service February 01, 2024 Assessment & Plan Admission and Anticipated Discharge Date Admission Date: February 01, 2024 Subjective Patient is seen and examined. Admitted by Dr. Almonte last night for chronic hypertension, superimposed with preeclampsia with severe features. She was started on IV magnesium and induction of labor with p.o. Cytotec. She feels well, no complaints. She had a headache earlier which was resolved with p.o. Tylenol Tylenol. Denies any change in her vision, nausea vomiting, epigastric or right upper quadrant pain. She has received IV labetalol twice, 10 and 20 mg and p.o. labetalol 100 mg this morning. Blood pressures are still elevated. Patient was on propranolol extended release and amlodipine, recommended by nephrology. She has a history of polycystic kidney disease with a normal kidney function, normal creatinine levels. heart rate category 1, toco shows contractions every 2 to 6 minutes, patient does not feel them. Cervix is 1 to 2 cm, 50% effaced, head is at -2 station, Discussed the findings with the patient and recommended Castro balloon mechanical dilatation with IV oxytocin, Patient understood all and agrees with plan, plan to start IV penicillin for GBS and Castro balloon and IV oxytocin when she is due ( 09:15) Continue to monitor closely. Results & Data Vital Signs (Past 12 Hours) Vital Signs Temp Pulse Resp BP Pulse Ox 02/01/24 08:30 85 99 02/01/24 08:25 98 02/01/24 08:25 86 02/01/24 08:25 82 145/96 H 02/01/24 08:20 82 98 02/01/24 08:19 83 165/95 H 02/01/24 08:15 97 02/01/24 08:15 81 02/01/24 08:15 84 159/103 H 02/01/24 08:10 82 97 02/01/24 08:09 84 152/92 H 02/01/24 08:05 82 98 02/01/24 08:04 81 155/92 H 02/01/24 08:00 99 02/01/24 08:00 87 02/01/24 08:00 82 148/99 H 02/01/24 07:59 80 144/98 H 02/01/24 07:55 82 98 02/01/24 07:51 70 172/104 H 02/01/24 07:50 72 100 02/01/24 07:46 74 172/104 H 02/01/24 07:45 77 99 02/01/24 07:40 70 98 02/01/24 07:35 70 100 02/01/24 07:31 71 155/103 H 02/01/24 07:30 72 100 02/01/24 07:25 72 100 02/01/24 07:20 68 100 02/01/24 07:18 66 175/107 H 02/01/24 07:15 68 100 02/01/24 07:10 76 100 02/01/24 07:05 71 99 02/01/24 07:01 65 157/98 H 02/01/24 07:00 67 99 02/01/24 06:55 73 100 02/01/24 06:50 71 100 02/01/24 06:46 71 148/92 H 02/01/24 06:45 72 99 02/01/24 06:40 75 100 02/01/24 06:35 77 100 02/01/24 06:31 70 147/83 H 02/01/24 06:30 18 02/01/24 06:30 76 97 02/01/24 06:25 73 97 02/01/24 06:20 70 98 02/01/24 06:17 63 163/98 H 02/01/24 06:15 72 98 02/01/24 06:10 68 100 02/01/24 06:05 71 100 02/01/24 06:01 64 163/97 H 02/01/24 06:00 66 99 02/01/24 05:55 76 100 02/01/24 05:50 66 99 02/01/24 05:46 64 152/95 H 02/01/24 05:45 69 99 02/01/24 05:40 79 99 02/01/24 05:35 74 100 02/01/24 05:31 69 148/87 H 02/01/24 05:30 18 02/01/24 05:30 71 98 02/01/24 05:25 72 98 02/01/24 05:20 73 98 02/01/24 05:15 73 99 02/01/24 05:13 69 172/98 H 02/01/24 05:10 75 98 02/01/24 05:05 64 100 02/01/24 05:00 71 100 02/01/24 04:55 69 100 02/01/24 04:50 72 99 02/01/24 04:45 74 99 02/01/24 04:40 70 98 02/01/24 04:35 73 98 02/01/24 04:30 18 02/01/24 04:30 76 97 02/01/24 04:25 73 96 02/01/24 04:20 75 96 02/01/24 04:15 72 97 02/01/24 04:13 73 135/81 02/01/24 04:10 72 97 02/01/24 04:05 73 96 02/01/24 04:00 74 96 02/01/24 03:55 72 96 02/01/24 03:50 72 96 02/01/24 03:45 66 96 02/01/24 03:40 85 98 02/01/24 03:35 71 96 02/01/24 03:30 18 02/01/24 03:30 70 96 02/01/24 03:25 72 96 02/01/24 03:20 74 97 02/01/24 03:15 68 97 02/01/24 03:14 18 02/01/24 03:14 36.8 C 18 02/01/24 03:11 75 140/84 02/01/24 03:10 74 99 02/01/24 03:05 71 98 02/01/24 03:00 73 98 02/01/24 02:55 72 149/92 H 97 02/01/24 02:50 71 99 02/01/24 02:45 71 97 02/01/24 02:41 72 165/98 H 02/01/24 02:40 64 98 02/01/24 02:35 76 98 02/01/24 02:30 18 02/01/24 02:30 77 100 02/01/24 02:27 75 165/92 H 02/01/24 02:25 74 97 02/01/24 02:20 81 99 02/01/24 02:15 82 99 02/01/24 02:11 70 157/91 H 02/01/24 02:10 75 98 02/01/24 02:05 77 98 02/01/24 02:00 76 98 02/01/24 01:56 75 153/93 H 02/01/24 01:55 73 97 02/01/24 01:50 77 97 02/01/24 01:45 82 99 02/01/24 01:40 79 155/89 H 98 02/01/24 01:35 79 98 02/01/24 01:34 73 148/79 H 02/01/24 01:30 18 02/01/24 01:30 79 97 02/01/24 01:25 77 96 02/01/24 01:20 81 97 02/01/24 01:15 18 02/01/24 01:15 77 97 02/01/24 01:10 73 151/80 H 96 02/01/24 01:05 83 97 02/01/24 01:00 18 02/01/24 01:00 86 98 02/01/24 00:59 83 94 02/01/24 00:55 82 152/84 H 96 02/01/24 00:50 79 97 02/01/24 00:45 18 02/01/24 00:45 82 97 02/01/24 00:40 76 151/83 H 97 02/01/24 00:35 85 98 02/01/24 00:30 18 02/01/24 00:30 77 97 02/01/24 00:25 77 151/83 H 97 02/01/24 00:23 72 156/82 H 02/01/24 00:22 73 94 02/01/24 00:20 78 96 02/01/24 00:15 75 151/86 H 93 02/01/24 00:10 80 155/90 H 97 02/01/24 00:05 76 147/81 H 02/01/24 00:00 78 178/95 H 02/01/24 00:00 78 178/95 H 01/31/24 23:55 75 01/31/24 23:55 158/91 H 01/31/24 23:50 74 01/31/24 23:50 149/88 H 01/31/24 23:47 80 01/31/24 23:47 143/84 H 01/31/24 23:43 153/93 H 01/31/24 23:43 75 01/31/24 23:43 153/93 H 01/31/24 23:13 76 01/31/24 23:13 171/109 H 01/31/24 22:57 36.9 C 18 01/31/24 22:44 75 170/106 H
--- NOTE | 2024-02-01 09:09 | Obstetrical Progress Note ---
Date of Service February 01, 2024 Assessment & Plan Admission and Anticipated Discharge Date Admission Date: February 01, 2024 Subjective patient was placed in dorsal lateral position, speculum was placed in the vagina, cervix was visualized and cleaned with Betadine solution. Castro catheter was inserted through cervical os, inflated with 40 mL of sterile water and a # medial thigh with minimal tension. Patient tolerated the procedure well. heart rate category 1, Discussed pain management during labor patient understands all and she desires to get epidural when she is in labor. Plan to start IV penicillin and oxytocin, Continue to monitor closely, All questions were answered.. Results & Data Vital Signs (Past 12 Hours) Vital Signs Temp Pulse Resp BP Pulse Ox 02/01/24 09:05 72 99 02/01/24 09:00 84 99 02/01/24 08:59 85 140/97 02/01/24 08:55 84 99 02/01/24 08:50 81 98 02/01/24 08:45 84 99 02/01/24 08:40 86 97 02/01/24 08:35 90 99 02/01/24 08:30 85 99 02/01/24 08:25 98 02/01/24 08:25 86 02/01/24 08:25 82 145/96 H 02/01/24 08:20 82 98 02/01/24 08:19 83 165/95 H 02/01/24 08:15 97 02/01/24 08:15 81 02/01/24 08:15 84 159/103 H 02/01/24 08:10 82 97 02/01/24 08:09 84 152/92 H 02/01/24 08:06 81 155/92 H 02/01/24 08:05 82 98 02/01/24 08:04 81 155/92 H 02/01/24 08:00 99 02/01/24 08:00 87 02/01/24 08:00 82 148/99 H 02/01/24 07:59 80 144/98 H 02/01/24 07:55 82 98 02/01/24 07:51 70 172/104 H 02/01/24 07:50 72 100 02/01/24 07:46 74 172/104 H 02/01/24 07:45 77 99 02/01/24 07:40 70 98 02/01/24 07:35 70 100 02/01/24 07:31 71 155/103 H 02/01/24 07:30 72 100 02/01/24 07:25 72 100 02/01/24 07:20 68 100 02/01/24 07:18 66 175/107 H 02/01/24 07:15 68 100 02/01/24 07:10 76 100 02/01/24 07:05 71 99 02/01/24 07:01 65 157/98 H 02/01/24 07:00 67 99 02/01/24 06:55 73 100 02/01/24 06:50 71 100 02/01/24 06:46 71 148/92 H 02/01/24 06:45 72 99 02/01/24 06:40 75 100 02/01/24 06:35 77 100 02/01/24 06:31 70 147/83 H 02/01/24 06:30 18 02/01/24 06:30 76 97 02/01/24 06:25 73 97 02/01/24 06:20 70 98 02/01/24 06:17 63 163/98 H 02/01/24 06:15 72 98 02/01/24 06:10 68 100 02/01/24 06:05 71 100 02/01/24 06:01 64 163/97 H 02/01/24 06:00 66 99 02/01/24 05:55 76 100 02/01/24 05:50 66 99 02/01/24 05:46 64 152/95 H 02/01/24 05:45 69 99 02/01/24 05:40 79 99 02/01/24 05:35 74 100 02/01/24 05:31 69 148/87 H 02/01/24 05:30 18 02/01/24 05:30 71 98 02/01/24 05:25 72 98 02/01/24 05:20 73 98 02/01/24 05:15 73 99 02/01/24 05:13 69 172/98 H 02/01/24 05:10 75 98 02/01/24 05:05 64 100 02/01/24 05:00 71 100 02/01/24 04:55 69 100 02/01/24 04:50 72 99 02/01/24 04:45 74 99 02/01/24 04:40 70 98 02/01/24 04:35 73 98 02/01/24 04:30 18 02/01/24 04:30 76 97 02/01/24 04:25 73 96 02/01/24 04:20 75 96 02/01/24 04:15 72 97 02/01/24 04:13 73 135/81 02/01/24 04:10 72 97 02/01/24 04:05 73 96 02/01/24 04:00 74 96 02/01/24 03:55 72 96 02/01/24 03:50 72 96 02/01/24 03:45 66 96 02/01/24 03:40 85 98 02/01/24 03:35 71 96 02/01/24 03:30 18 02/01/24 03:30 70 96 02/01/24 03:25 72 96 02/01/24 03:20 74 97 02/01/24 03:15 68 97 02/01/24 03:14 18 02/01/24 03:14 36.8 C 18 02/01/24 03:11 75 140/84 02/01/24 03:10 74 99 02/01/24 03:05 71 98 02/01/24 03:00 73 98 02/01/24 02:55 72 149/92 H 97 02/01/24 02:50 71 99 02/01/24 02:45 71 97 02/01/24 02:41 72 165/98 H 02/01/24 02:40 64 98 02/01/24 02:35 76 98 02/01/24 02:30 18 02/01/24 02:30 77 100 02/01/24 02:27 75 165/92 H 02/01/24 02:25 74 97 02/01/24 02:20 81 99 02/01/24 02:15 82 99 02/01/24 02:11 70 157/91 H 02/01/24 02:10 75 98 02/01/24 02:05 77 98 02/01/24 02:00 76 98 02/01/24 01:56 75 153/93 H 02/01/24 01:55 73 97 02/01/24 01:50 77 97 02/01/24 01:45 82 99 02/01/24 01:40 79 155/89 H 98 02/01/24 01:35 79 98 02/01/24 01:34 73 148/79 H 02/01/24 01:30 18 02/01/24 01:30 79 97 02/01/24 01:25 77 96 02/01/24 01:20 81 97 02/01/24 01:15 18 02/01/24 01:15 77 97 02/01/24 01:10 73 151/80 H 96 02/01/24 01:05 83 97 02/01/24 01:00 18 02/01/24 01:00 86 98 02/01/24 00:59 83 94 02/01/24 00:55 82 152/84 H 96 02/01/24 00:50 79 97 02/01/24 00:45 18 02/01/24 00:45 82 97 02/01/24 00:40 76 151/83 H 97 02/01/24 00:35 85 98 02/01/24 00:30 18 02/01/24 00:30 77 97 02/01/24 00:25 77 151/83 H 97 02/01/24 00:23 72 156/82 H 02/01/24 00:22 73 94 02/01/24 00:20 78 96 02/01/24 00:15 75 151/86 H 93 02/01/24 00:10 80 155/90 H 97 02/01/24 00:05 76 147/81 H 02/01/24 00:00 78 178/95 H 02/01/24 00:00 78 178/95 H 01/31/24 23:55 75 01/31/24 23:55 158/91 H 01/31/24 23:50 74 01/31/24 23:50 149/88 H 01/31/24 23:47 80 01/31/24 23:47 143/84 H 01/31/24 23:43 153/93 H 01/31/24 23:43 75 01/31/24 23:43 153/93 H 01/31/24 23:13 76 01/31/24 23:13 171/109 H 01/31/24 22:57 36.9 C 18 01/31/24 22:44 75 170/106 H
[2024-02-01] MEDS: OXYTOCIN 30 UNITS/NSS 30 UNITS/500 ML BAG IV PRN (10:01)
[2024-02-01] MEDS: PENICILLIN GK 6 MU in SODIUM CHLORIDE 0.9% 250 ML IV STA (10:01)
[2024-02-01] MEDS: BUTORPHANOL TARTRATE 2 MG/ML VIAL IV ONE (10:22)
[2024-02-01] MEDS: FLUoxetine HCL 20 MG CAP PO SCH (12:38)
[2024-02-01] MEDS: PROPRANOLOL HCL LA 80 MG CAPCR PO SCH (12:41)
[2024-02-01] MEDS: PENICILLIN GK 3 MU in DEXTROSE 5% 100 ML IV PRN (13:53)
--- NOTE | 2024-02-01 14:10 | Obstetrical Progress Note ---
Date of Service February 01, 2024 Assessment & Plan Admission and Anticipated Discharge Date Admission Date: February 01, 2024 Subjective Patient is reevaluated. Feels well, no complaints VSS AfebrILE FHR categ I [place] ctxs q 2-4 min, patient does not feel them, Oxytocin is at 12 miu/min 2nd dose of PCN is being given VE: juan bulb in vagina, 5/ 50%/ -2, bulging bag, AROM;ed minimal clear fluid Continue to monitor Results & Data Vital Signs (Past 12 Hours) Vital Signs Temp Pulse Resp BP Pulse Ox 02/01/24 14:05 74 100 02/01/24 14:00 77 100 02/01/24 13:55 72 100 02/01/24 13:50 75 99 02/01/24 13:45 66 96 02/01/24 13:40 72 98 02/01/24 13:35 65 98 02/01/24 13:30 63 98 02/01/24 13:25 63 100 02/01/24 13:21 62 154/96 H 02/01/24 13:20 70 99 02/01/24 13:15 74 100 02/01/24 13:10 67 99 02/01/24 13:05 65 100 02/01/24 13:00 69 99 02/01/24 12:55 73 100 02/01/24 12:50 67 99 02/01/24 12:45 77 100 02/01/24 12:40 72 100 02/01/24 12:35 100 02/01/24 12:35 79 02/01/24 12:35 78 138/91 02/01/24 12:30 87 16 99 02/01/24 12:25 73 97 02/01/24 12:20 69 96 02/01/24 12:15 70 96 02/01/24 12:10 69 95 02/01/24 12:05 67 97 02/01/24 12:00 71 97 02/01/24 11:55 80 99 02/01/24 11:50 79 98 02/01/24 11:47 78 94 02/01/24 11:45 70 95 02/01/24 11:40 73 95 02/01/24 11:35 72 96 02/01/24 11:30 67 95 02/01/24 11:25 74 96 02/01/24 11:20 83 97 02/01/24 11:15 36.5 C 79 16 98 02/01/24 11:11 68 94 02/01/24 11:10 70 95 02/01/24 11:05 74 96 02/01/24 11:00 81 96 02/01/24 10:59 65 18 115/66 02/01/24 10:58 75 94 02/01/24 10:55 68 93 02/01/24 10:50 69 94 02/01/24 10:47 67 94 02/01/24 10:45 67 93 02/01/24 10:40 72 94 02/01/24 10:35 66 94 02/01/24 10:33 70 94 02/01/24 10:30 74 22 100 02/01/24 10:28 78 139/91 02/01/24 10:25 84 100 02/01/24 10:20 80 100 02/01/24 10:15 84 100 02/01/24 10:10 78 99 02/01/24 10:05 85 100 02/01/24 10:00 100 02/01/24 10:00 83 02/01/24 10:00 85 134/80 02/01/24 09:55 79 100 02/01/24 09:50 80 100 02/01/24 09:45 84 100 02/01/24 09:40 82 100 02/01/24 09:35 79 98 02/01/24 09:30 77 18 100 02/01/24 09:29 78 135/90 02/01/24 09:25 81 100 02/01/24 09:20 76 100 02/01/24 09:15 77 100 02/01/24 09:10 81 100 02/01/24 09:05 72 99 02/01/24 09:00 84 99 02/01/24 08:59 85 140/97 02/01/24 08:55 84 99 02/01/24 08:50 81 98 02/01/24 08:45 84 99 02/01/24 08:40 86 97 02/01/24 08:35 90 99 02/01/24 08:30 85 18 99 02/01/24 08:25 98 02/01/24 08:25 86 02/01/24 08:25 82 145/96 H 02/01/24 08:20 82 98 12/27/24 08:19 83 165/95 H 02/01/24 08:15 97 02/01/24 08:15 81 02/01/24 08:15 84 159/103 H 02/01/24 08:10 82 97 02/01/24 08:09 84 152/92 H 02/01/24 08:06 81 155/92 H 02/01/24 08:05 82 98 02/01/24 08:04 81 155/92 H 02/01/24 08:00 99 02/01/24 08:00 87 02/01/24 08:00 82 148/99 H 02/01/24 07:59 80 144/98 H 02/01/24 07:55 82 98 02/01/24 07:51 70 172/104 H 02/01/24 07:50 72 100 02/01/24 07:46 74 172/104 H 02/01/24 07:45 77 99 02/01/24 07:40 70 98 02/01/24 07:35 70 100 02/01/24 07:31 36.5 C 71 16 155/103 H 02/01/24 07:30 72 100 02/01/24 07:25 72 100 02/01/24 07:20 68 100 02/01/24 07:18 66 175/107 H 02/01/24 07:15 68 100 02/01/24 07:10 76 100 02/01/24 07:05 71 99 02/01/24 07:01 65 157/98 H 02/01/24 07:00 67 99 02/01/24 06:55 73 100 02/01/24 06:50 71 100 02/01/24 06:46 71 148/92 H 02/01/24 06:45 72 99 02/01/24 06:40 75 100 02/01/24 06:35 77 100 02/01/24 06:31 70 147/83 H 02/01/24 06:30 18 02/01/24 06:30 76 97 02/01/24 06:25 73 97 02/01/24 06:20 70 98 02/01/24 06:17 63 163/98 H 02/01/24 06:15 72 98 02/01/24 06:10 68 100 02/01/24 06:05 71 100 02/01/24 06:01 64 163/97 H 02/01/24 06:00 66 99 02/01/24 05:55 76 100 02/01/24 05:50 66 99 02/01/24 05:46 64 152/95 H 02/01/24 05:45 69 99 02/01/24 05:40 79 99 02/01/24 05:35 74 100 02/01/24 05:31 69 148/87 H 02/01/24 05:30 18 02/01/24 05:30 71 98 02/01/24 05:25 72 98 02/01/24 05:20 73 98 02/01/24 05:15 73 99 02/01/24 05:13 69 172/98 H 02/01/24 05:10 75 98 02/01/24 05:05 64 100 02/01/24 05:00 71 100 02/01/24 04:55 69 100 02/01/24 04:50 72 99 02/01/24 04:45 74 99 02/01/24 04:40 70 98 02/01/24 04:35 73 98 02/01/24 04:30 18 02/01/24 04:30 76 97 02/01/24 04:25 73 96 02/01/24 04:20 75 96 02/01/24 04:15 72 97 02/01/24 04:13 73 135/81 02/01/24 04:10 72 97 02/01/24 04:05 73 96 02/01/24 04:00 74 96 02/01/24 03:55 72 96 02/01/24 03:50 72 96 02/01/24 03:45 66 96 02/01/24 03:40 85 98 02/01/24 03:35 71 96 02/01/24 03:30 18 02/01/24 03:30 70 96 02/01/24 03:25 72 96 02/01/24 03:20 74 97 02/01/24 03:15 68 97 02/01/24 03:14 18 02/01/24 03:14 36.8 C 18 02/01/24 03:11 75 140/84 02/01/24 03:10 74 99 02/01/24 03:05 71 98 02/01/24 03:00 73 98 02/01/24 02:55 72 149/92 H 97 02/01/24 02:50 71 99 02/01/24 02:45 71 97 02/01/24 02:41 72 165/98 H 02/01/24 02:40 64 98 02/01/24 02:35 76 98 02/01/24 02:30 18 02/01/24 02:30 77 100 02/01/24 02:27 75 165/92 H 02/01/24 02:25 74 97 02/01/24 02:20 81 99 02/01/24 02:15 82 99 02/01/24 02:11 70 157/91 H 02/01/24 02:10 75 98
[2024-02-01 15:00] LABS: Basophils # (auto) 0.02 K/uL (0.00-0.20); Basophils % (auto) 0.2 %; Eosinophils # (auto) 0.05 K/uL (0.00-0.50); Eosinophils % (auto) 0.6 %; Hematocrit (blood only) 35.4 % (37.0-47.0); Hemoglobin 11.8 g/dl (12.0-16.0); Immature Granulocytes # (auto) 0.08 K/uL (0.01-0.20); Immature Granulocytes % (auto) 0.9 %; Lymphocytes # (auto) 1.04 K/uL (1.20-3.40); Lymphocytes % (auto) 11.6 %; Mean Corpuscular Hemoglobin 29.6 pg (25.0-34.0); Mean Corpuscular Hgb Conc 33.3 g/dL (32.0-36.0); Mean Corpuscular Volume 88.7 fL (80.0-100.0); Mean Platelet Volume 11.1 fL (9.4-12.4); Monocytes # (auto) 0.55 K/uL (0.11-0.59); Monocytes % (auto) 6.2 %; Neutrophils # (auto) 7.19 K/uL (1.40-6.50); Neutrophils % (auto) 80.5 %; Platelet Count 140 K/uL (130-400); RDW Coefficient of Variation 12.8 % (11.5-14.5); RDW Standard Deviation 41.5 fL (36.4-46.3); Red Blood Count 3.99 M/uL (4.20-5.40); White Blood Count 8.93 K/ul (4.8-10.8)
[2024-02-01 15:12] LABS: BUN Creatinine Ratio 13.6 (10-20); Calcium 7.8 mg/dl (8.6-10.3); Creatinine Clr Calc Pharmacy 98.8 ml/min; Potassium 4.4 mmol/L (3.5-5.1)
[2024-02-01 15:25] LABS: Albumin Level 3.1 gm/dl (3.4-5.0); Bilirubin,Total 0.2 mg/dl (0.2-1.0); Globulin 3.1 gm/dl (2.5-4.0); Magnesium 7.2 mg/dl (1.7-2.4); Total Protein 6.2 gm/dl (6.0-8.3)
[2024-02-01] MEDS: fentANYL 2 MCG/ML BUPIVacaine 0.125%-NSS 100ML BAG ONE (15:25)
[2024-02-01] MEDS: LIDOCAINE 2%/EPINEPHRINE 1:200,000 20 ML PF ONE (15:25)
[2024-02-01] MEDS: BUPIVACAINE 0.25% PF 30 ML VIAL ONE (15:25)
--- NOTE | 2024-02-01 16:38 | Obstetrical Progress Note ---
Date of Service February 01, 2024 Assessment & Plan Admission and Anticipated Discharge Date Admission Date: February 01, 2024 Subjective Patient received epidural and comfortable now BP's went down for a while and now back up. FHR had been categ I, had few mild decels with quick recovery, unable to tell what type due to toco not showing contractions VE; 5-6 cm/ 50%/ -2, IUPC is placed, Fse was placed but did not work properly and taken out scalp stimulation with + accel to 135 from 120's Continue to monitor closely Results & Data Vital Signs (Past 12 Hours) Vital Signs Temp Pulse Resp BP Pulse Ox 02/01/24 16:34 81 153/76 H 02/01/24 16:31 80 98 02/01/24 16:29 76 141/79 H 02/01/24 16:26 78 100 02/01/24 16:24 129/91 02/01/24 16:21 83 100 02/01/24 16:19 70 106/64 02/01/24 16:16 71 100 02/01/24 16:11 84 97 02/01/24 16:06 80 100 02/01/24 16:05 86 91 02/01/24 16:02 118/74 02/01/24 16:00 100 02/01/24 16:00 76 02/01/24 16:00 81 116/66 02/01/24 15:59 84 125/67 02/01/24 15:55 78 100 02/01/24 15:50 88 99 02/01/24 15:46 82 132/85 02/01/24 15:45 78 100 02/01/24 15:43 76 131/90 02/01/24 15:40 77 136/92 100 02/01/24 15:37 75 138/85 02/01/24 15:35 76 100 02/01/24 15:34 81 141/84 H 86 L 02/01/24 15:30 114 H 145/92 H 87 L 02/01/24 15:28 72 159/96 H 02/01/24 15:25 93 02/01/24 15:25 85 02/01/24 15:25 68 153/92 H 02/01/24 15:22 71 180/98 H 02/01/24 15:21 82 191/88 H 92 02/01/24 15:20 83 98 02/01/24 15:15 100 02/01/24 15:15 82 02/01/24 15:15 83 92 02/01/24 15:10 73 100 02/01/24 15:05 76 100 02/01/24 15:00 81 100 02/01/24 14:57 79 167/104 H 02/01/24 14:55 78 100 02/01/24 14:50 71 100 02/01/24 14:45 73 100 02/01/24 14:40 74 100 02/01/24 14:35 73 100 02/01/24 14:30 70 18 100 02/01/24 14:25 77 98 02/01/24 14:22 64 168/98 H 02/01/24 14:20 74 99 02/01/24 14:15 68 97 02/01/24 14:10 77 100 02/01/24 14:05 74 100 02/01/24 14:00 77 100 02/01/24 13:55 72 100 02/01/24 13:50 75 99 02/01/24 13:45 66 96 02/01/24 13:40 72 98 02/01/24 13:35 65 98 02/01/24 13:30 63 18 98 02/01/24 13:25 63 100 02/01/24 13:21 62 154/96 H 02/01/24 13:20 70 99 02/01/24 13:15 74 100 02/01/24 13:10 67 99 02/01/24 13:05 65 100 02/01/24 13:00 69 99 02/01/24 12:55 73 100 02/01/24 12:50 67 99 02/01/24 12:45 77 100 02/01/24 12:40 72 100 02/01/24 12:35 100 02/01/24 12:35 79 02/01/24 12:35 78 138/91 02/01/24 12:30 87 16 99 02/01/24 12:25 73 97 02/01/24 12:20 69 96 02/01/24 12:15 70 96 02/01/24 12:10 69 95 02/01/24 12:05 67 97 02/01/24 12:00 71 97 02/01/24 11:55 80 99 02/01/24 11:50 79 98 02/01/24 11:47 78 94 02/01/24 11:45 70 95 02/01/24 11:40 73 95 02/01/24 11:35 72 96 02/01/24 11:30 67 95 02/01/24 11:25 74 96 02/01/24 11:20 83 97 02/01/24 11:15 36.5 C 79 16 98 02/01/24 11:11 68 94 02/01/24 11:10 70 95 02/01/24 11:05 74 96 02/01/24 11:00 81 96 02/01/24 10:59 65 18 115/66 02/01/24 10:58 75 94 02/01/24 10:55 68 93 02/01/24 10:50 69 94 02/01/24 10:47 67 94 02/01/24 10:45 67 93 02/01/24 10:40 72 94 02/01/24 10:35 66 94 02/01/24 10:33 70 94 02/01/24 10:30 74 22 100 02/01/24 10:28 78 139/91 02/01/24 10:25 84 100 02/01/24 10:20 80 100 02/01/24 10:15 84 100 02/01/24 10:10 78 99 02/01/24 10:05 85 100 02/01/24 10:00 100 02/01/24 10:00 83 02/01/24 10:00 85 134/80 02/01/24 09:55 79 100 02/01/24 09:50 80 100 02/01/24 09:45 84 100 02/01/24 09:40 82 100 02/01/24 09:35 79 98 02/01/24 09:30 77 18 100 02/01/24 09:29 78 135/90 02/01/24 09:25 81 100 02/01/24 09:20 76 100 02/01/24 09:15 77 100 02/01/24 09:10 81 100 02/01/24 09:05 72 99 02/01/24 09:00 84 99 02/01/24 08:59 85 140/97 02/01/24 08:55 84 99 02/01/24 08:50 81 98 02/01/24 08:45 84 99 02/01/24 08:40 86 97 02/01/24 08:35 90 99 02/01/24 08:30 85 18 99 02/01/24 08:25 98 02/01/24 08:25 86 02/01/24 08:25 82 145/96 H 02/01/24 08:20 82 98 02/01/24 08:19 83 165/95 H 02/01/24 08:15 97 02/01/24 08:15 81 02/01/24 08:15 84 159/103 H 02/01/24 08:10 82 97 02/01/24 08:09 84 152/92 H 02/01/24 08:06 81 155/92 H 02/01/24 08:05 82 98 02/01/24 08:04 81 155/92 H 02/01/24 08:00 99 02/01/24 08:00 87 02/01/24 08:00 82 148/99 H 02/01/24 07:59 80 144/98 H 02/01/24 07:55 82 98 02/01/24 07:51 70 172/104 H 02/01/24 07:50 72 100 02/01/24 07:46 74 172/104 H 02/01/24 07:45 77 99 02/01/24 07:40 70 98 02/01/24 07:35 70 100 02/01/24 07:31 36.5 C 71 16 155/103 H 02/01/24 07:30 72 100 02/01/24 07:25 72 100 02/01/24 07:20 68 100 02/01/24 07:18 66 175/107 H 02/01/24 07:15 68 100 02/01/24 07:10 76 100 02/01/24 07:05 71 99 02/01/24 07:01 65 157/98 H 02/01/24 07:00 67 99 02/01/24 06:55 73 100 02/01/24 06:50 71 100 02/01/24 06:46 71 148/92 H 02/01/24 06:45 72 99 02/01/24 06:40 75 100 02/01/24 06:35 77 100 02/01/24 06:31 70 147/83 H 02/01/24 06:30 18 02/01/24 06:30 76 97 02/01/24 06:25 73 97 02/01/24 06:20 70 98 02/01/24 06:17 63 163/98 H 02/01/24 06:15 72 98 02/01/24 06:10 68 100 02/01/24 06:05 71 100 02/01/24 06:01 64 163/97 H 02/01/24 06:00 66 99 02/01/24 05:55 76 100 02/01/24 05:50 66 99 02/01/24 05:46 64 152/95 H 02/01/24 05:45 69 99 02/01/24 05:40 79 99 02/01/24 05:35 74 100 02/01/24 05:31 69 148/87 H 02/01/24 05:30 18 02/01/24 05:30 71 98 02/01/24 05:25 72 98 02/01/24 05:20 73 98 02/01/24 05:15 73 99 02/01/24 05:13 69 172/98 H 02/01/24 05:10 75 98 02/01/24 05:05 64 100 02/01/24 05:00 71 100 02/01/24 04:55 69 100 02/01/24 04:50 72 99 02/01/24 04:45 74 99 02/01/24 04:40 70 98
--- NOTE | 2024-02-01 17:28 | Obstetrical Progress Note ---
Date of Service February 01, 2024 Assessment & Plan Admission and Anticipated Discharge Date Admission Date: February 01, 2024 Subjective FHR had decel to 80-100's for about 2 minutes while she was sitting up, placed on her side and recovered to 120's with decreased variability IUPC was not showing contractions VE; 6/ 60%/ -2, ROP, anterior fontanelle at 10-11 o'clock scalp stimulation increased FHR to 130 and variability increased Labs stable except Magnesium 7.2, decreased IV mag to 1.5 gram / hour Continue to monitor closely Lab Results 01/31/24 01/31/24 02/01/24 Range/Units 23:00 23:33 07:27 WBC 7.79 6.91 (4.8-10.8) K/ul RBC 3.64 L 4.14 L (4.20-5.40) M/uL Hgb 10.7 L 12.2 (12.0-16.0) g/dl Hct 31.7 L 36.9 L (37.0-47.0) % MCV 87.1 89.1 (80.0-100.0) fL MCH 29.4 29.5 (25.0-34.0) pg MCHC 33.8 33.1 (32.0-36.0) g/dL RDW Std Deviation 40.1 41.8 (36.4-46.3) fL RDW Coeff of Rosa Isela 12.7 12.8 (11.5-14.5) % Plt Count 143 164 (130-400) K/uL MPV 11.2 11.2 (9.4-12.4) fL Immature Gran % (Auto) 0.5 0.6 % Neut % (Auto) 65.3 67.2 % Lymph % (Auto) 23.2 21.7 % Drew % (Auto) 8.9 8.5 % Eos % (Auto) 1.7 1.6 % Baso % (Auto) 0.4 0.4 % Neut # (Auto) 5.09 4.64 (1.40-6.50) K/uL Lymph # (Auto) 1.81 1.50 (1.20-3.40) K/uL Drew # (Auto) 0.69 H 0.59 (0.11-0.59) K/uL Eos # (Auto) 0.13 0.11 (0.00-0.50) K/uL Baso # (Auto) 0.03 0.03 (0.00-0.20) K/uL Immature Gran # (Auto) 0.04 0.04 (0.01-0.20) K/uL Sodium 135 L 136 (136-145) mmol/L Potassium 3.9 4.3 (3.5-5.1) mmol/L Chloride 106 104 (98-107) mmol/L Carbon Dioxide 21 26 (21-32) mmol/L Anion Gap 8 6 (3-11) BUN 14 12 (6-23) mg/dl Creatinine 0.80 0.84 (0.6-1.2) mg/dl Est Cr Clr Drug Dosing 108.7 103.5 ml/min eGFR 99.71 94.04 BUN/Creatinine Ratio 17.5 14.3 (10-20) Glucose 93 76 (70-99(Fasting)) mg/dl Uric Acid 7.6 H (2.6-7.2) mg/dl Calcium 8.1 L 8.5 L (8.6-10.3) mg/dl Magnesium (1.7-2.4) mg/dl Magnesium (Sulf Ther) 5.9 (4.0-8.0) mg/dL Total Bilirubin 0.2 0.2 (0.2-1.0) mg/dl Direct Bilirubin 0.0 (0-0.2) mg/dl AST 32 35 (13-39) U/L ALT 30 33 (7-52) U/L Alkaline Phosphatase 105 H 110 H (34-104) U/L Lactate Dehydrogenase 181 (86-244) U/L Total Protein 6.0 6.3 (6.0-8.3) gm/dl Albumin 3.2 L 3.3 L (3.4-5.0) gm/dl Globulin 2.8 3.0 (2.5-4.0) gm/dl Albumin/Globulin Ratio 1.1 1.1 (0.9-2) Ur Random Creatinine 35.3 mg/dl U Random Total Protein 86.8 H (0-11.9) mg/dl Protein/Creatinin Ratio 2.5 H (0-0.2) Urine Opiates Screen Neg (Neg) Ur Methadone, Qual Neg (Neg) Urine Fentanyl Screen Neg (Neg) Urine Barbiturates Neg (Neg) Ur Phencyclidine (PCP) Neg (Neg) U Amphetamin/Meth Scrn Neg (Neg) MDMA (Ecstasy) Screen Neg (Neg) U Benzodiazepines Scrn Neg (Neg) Ur Cocaine Metabolite Neg (Neg) U Marijuana (THC) Screen Neg (Neg) 02/01/24 Range/Units 14:46 WBC 8.93 (4.8-10.8) K/ul RBC 3.99 L (4.20-5.40) M/uL Hgb 11.8 L (12.0-16.0) g/dl Hct 35.4 L (37.0-47.0) % MCV 88.7 (80.0-100.0) fL MCH 29.6 (25.0-34.0) pg MCHC 33.3 (32.0-36.0) g/dL RDW Std Deviation 41.5 (36.4-46.3) fL RDW Coeff of Rosa Isela 12.8 (11.5-14.5) % Plt Count 140 (130-400) K/uL MPV 11.1 (9.4-12.4) fL Immature Gran % (Auto) 0.9 % Neut % (Auto) 80.5 % Lymph % (Auto) 11.6 % Drew % (Auto) 6.2 % Eos % (Auto) 0.6 % Baso % (Auto) 0.2 % Neut # (Auto) 7.19 H (1.40-6.50) K/uL Lymph # (Auto) 1.04 L (1.20-3.40) K/uL Drew # (Auto) 0.55 (0.11-0.59) K/uL Eos # (Auto) 0.05 (0.00-0.50) K/uL Baso # (Auto) 0.02 (0.00-0.20) K/uL Immature Gran # (Auto) 0.08 (0.01-0.20) K/uL Sodium 133 L (136-145) mmol/L Potassium 4.4 (3.5-5.1) mmol/L Chloride 102 (98-107) mmol/L Carbon Dioxide 23 (21-32) mmol/L Anion Gap 8 (3-11) BUN 12 (6-23) mg/dl Creatinine 0.88 (0.6-1.2) mg/dl Est Cr Clr Drug Dosing 98.8 ml/min eGFR 88.93 BUN/Creatinine Ratio 13.6 (10-20) Glucose 96 (70-99(Fasting)) mg/dl Uric Acid (2.6-7.2) mg/dl Calcium 7.8 L (8.6-10.3) mg/dl Magnesium 7.2 H* (1.7-2.4) mg/dl Magnesium (Sulf Ther) (4.0-8.0) mg/dL Total Bilirubin 0.2 (0.2-1.0) mg/dl Direct Bilirubin (0-0.2) mg/dl AST 34 (13-39) U/L ALT 33 (7-52) U/L Alkaline Phosphatase 106 H (34-104) U/L Lactate Dehydrogenase (86-244) U/L Total Protein 6.2 (6.0-8.3) gm/dl Albumin 3.1 L (3.4-5.0) gm/dl Globulin 3.1 (2.5-4.0) gm/dl Albumin/Globulin Ratio 1.0 (0.9-2) Ur Random Creatinine mg/dl U Random Total Protein (0-11.9) mg/dl Protein/Creatinin Ratio (0-0.2) Urine Opiates Screen (Neg) Ur Methadone, Qual (Neg) Urine Fentanyl Screen (Neg) Urine Barbiturates (Neg) Ur Phencyclidine (PCP) (Neg) U Amphetamin/Meth Scrn (Neg) MDMA (Ecstasy) Screen (Neg) U Benzodiazepines Scrn (Neg) Ur Cocaine Metabolite (Neg) U Marijuana (THC) Screen (Neg) Results & Data Vital Signs (Past 12 Hours) Vital Signs Temp Pulse Resp BP Pulse Ox 02/01/24 17:13 84 136/76 02/01/24 17:11 86 99 02/01/24 17:07 84 129/81 02/01/24 17:06 73 96 02/01/24 17:04 75 136/79 02/01/24 17:01 83 99 02/01/24 16:58 67 126/75 02/01/24 16:56 70 98 02/01/24 16:52 69 125/69 02/01/24 16:51 68 97 02/01/24 16:47 73 136/83 02/01/24 16:46 75 99 02/01/24 16:43 67 135/75 02/01/24 16:41 68 99 02/01/24 16:37 69 130/74 02/01/24 16:36 72 99 02/01/24 16:34 81 153/76 H 02/01/24 16:31 80 98 02/01/24 16:29 76 141/79 H 02/01/24 16:26 78 100 02/01/24 16:24 129/91 02/01/24 16:21 83 100 02/01/24 16:19 70 106/64 02/01/24 16:16 71 100 02/01/24 16:11 84 97 02/01/24 16:06 80 100 02/01/24 16:05 86 91 02/01/24 16:02 118/74 02/01/24 16:00 100 02/01/24 16:00 76 02/01/24 16:00 81 116/66 02/01/24 15:59 84 125/67 02/01/24 15:55 78 100 02/01/24 15:50 88 99 02/01/24 15:46 82 132/85 02/01/24 15:45 78 100 02/01/24 15:43 76 131/90 02/01/24 15:40 77 136/92 100 02/01/24 15:37 75 138/85 02/01/24 15:35 76 100 02/01/24 15:34 81 141/84 H 86 L 02/01/24 15:30 114 H 145/92 H 87 L 02/01/24 15:28 72 159/96 H 02/01/24 15:25 93 02/01/24 15:25 85 02/01/24 15:25 68 153/92 H 02/01/24 15:22 71 180/98 H 02/01/24 15:21 82 191/88 H 92 02/01/24 15:20 83 98 02/01/24 15:15 100 02/01/24 15:15 82 02/01/24 15:15 83 92 02/01/24 15:10 73 100 02/01/24 15:05 76 100 02/01/24 15:00 81 100 02/01/24 14:57 79 167/104 H 02/01/24 14:55 78 100 02/01/24 14:50 71 100 02/01/24 14:45 73 100 02/01/24 14:40 74 100 02/01/24 14:35 73 100 02/01/24 14:30 70 18 100 02/01/24 14:25 77 98 02/01/24 14:22 64 168/98 H 02/01/24 14:20 74 99 02/01/24 14:15 68 97 02/01/24 14:10 77 100 02/01/24 14:05 74 100 02/01/24 14:00 77 100 02/01/24 13:55 72 100 02/01/24 13:50 75 99 02/01/24 13:45 66 96 02/01/24 13:40 72 98 02/01/24 13:35 65 98 02/01/24 13:30 63 18 98 02/01/24 13:25 63 100 02/01/24 13:21 62 154/96 H 02/01/24 13:20 70 99 02/01/24 13:15 74 100 02/01/24 13:10 67 99 02/01/24 13:05 65 100 02/01/24 13:00 69 99 02/01/24 12:55 73 100 02/01/24 12:50 67 99 02/01/24 12:45 77 100 02/01/24 12:40 72 100 02/01/24 12:35 100 02/01/24 12:35 79 02/01/24 12:35 78 138/91 02/01/24 12:30 87 16 99 02/01/24 12:25 73 97 02/01/24 12:20 69 96 02/01/24 12:15 70 96 02/01/24 12:10 69 95 02/01/24 12:05 67 97 02/01/24 12:00 71 97 02/01/24 11:55 80 99 02/01/24 11:50 79 98 02/01/24 11:47 78 94 02/01/24 11:45 70 95 02/01/24 11:40 73 95 02/01/24 11:35 72 96 02/01/24 11:30 67 95 02/01/24 11:25 74 96 02/01/24 11:20 83 97 02/01/24 11:15 36.5 C 79 16 98 02/01/24 11:11 68 94 02/01/24 11:10 70 95 02/01/24 11:05 74 96 02/01/24 11:00 81 96 02/01/24 10:59 65 18 115/66 02/01/24 10:58 75 94 02/01/24 10:55 68 93 02/01/24 10:50 69 94 02/01/24 10:47 67 94 02/01/24 10:45 67 93 02/01/24 10:40 72 94 02/01/24 10:35 66 94 02/01/24 10:33 70 94 02/01/24 10:30 74 22 100 02/01/24 10:28 78 139/91 02/01/24 10:25 84 100 02/01/24 10:20 80 100 02/01/24 10:15 84 100 02/01/24 10:10 78 99 02/01/24 10:05 85 100 02/01/24 10:00 100 02/01/24 10:00 83 02/01/24 10:00 85 134/80 02/01/24 09:55 79 100 02/01/24 09:50 80 100 02/01/24 09:45 84 100 02/01/24 09:40 82 100 02/01/24 09:35 79 98 02/01/24 09:30 77 18 100 02/01/24 09:29 78 135/90 02/01/24 09:25 81 100 02/01/24 09:20 76 100 02/01/24 09:15 77 100 02/01/24 09:10 81 100 02/01/24 09:05 72 99 02/01/24 09:00 84 99 02/01/24 08:59 85 140/97 02/01/24 08:55 84 99 02/01/24 08:50 81 98 02/01/24 08:45 84 99 02/01/24 08:40 86 97 02/01/24 08:35 90 99 02/01/24 08:30 85 18 99 02/01/24 08:25 98 02/01/24 08:25 86 02/01/24 08:25 82 145/96 H 02/01/24 08:20 82 98 02/01/24 08:19 83 165/95 H 02/01/24 08:15 97 02/01/24 08:15 81 02/01/24 08:15 84 159/103 H 02/01/24 08:10 82 97 02/01/24 08:09 84 152/92 H 02/01/24 08:06 81 155/92 H 02/01/24 08:05 82 98 02/01/24 08:04 81 155/92 H 02/01/24 08:00 99 02/01/24 08:00 87 02/01/24 08:00 82 148/99 H 02/01/24 07:59 80 144/98 H 02/01/24 07:55 82 98 02/01/24 07:51 70 172/104 H 02/01/24 07:50 72 100 02/01/24 07:46 74 172/104 H 02/01/24 07:45 77 99 02/01/24 07:40 70 98 02/01/24 07:35 70 100 02/01/24 07:31 36.5 C 71 16 155/103 H 02/01/24 07:30 72 100 02/01/24 07:25 72 100 02/01/24 07:20 68 100 02/01/24 07:18 66 175/107 H 02/01/24 07:15 68 100 02/01/24 07:10 76 100 02/01/24 07:05 71 99 02/01/24 07:01 65 157/98 H 02/01/24 07:00 67 99 02/01/24 06:55 73 100 02/01/24 06:50 71 100 02/01/24 06:46 71 148/92 H 02/01/24 06:45 72 99 02/01/24 06:40 75 100 02/01/24 06:35 77 100 02/01/24 06:31 70 147/83 H 02/01/24 06:30 18 02/01/24 06:30 76 97 02/01/24 06:25 73 97 02/01/24 06:20 70 98 02/01/24 06:17 63 163/98 H 02/01/24 06:15 72 98 02/01/24 06:10 68 100 02/01/24 06:05 71 100 12/27/24 06:01 64 163/97 H 02/01/24 06:00 66 99 02/01/24 05:55 76 100 02/01/24 05:50 66 99 02/01/24 05:46 64 152/95 H 02/01/24 05:45 69 99 02/01/24 05:40 79 99 02/01/24 05:35 74 100 02/01/24 05:31 69 148/87 H 02/01/24 05:30 18 02/01/24 05:30 71 98 02/01/24 05:25 72 98 02/01/24 05:20 73 98
[2024-02-01] MEDS: SODIUM CHLORIDE 0.9% PF INJ 10 ML VIAL ONE (17:34)
[2024-02-01] MEDS ORDERED: BUPIVACAINE 0.25% PF 30 ML VIAL EPI PRN (18:16)
[2024-02-01] MEDS ORDERED: diphenhydrAMINE 50 MG/ML VIAL IV PRN ×2 (18:16→21:35)
[2024-02-01] MEDS ORDERED: fentANYL 2 MCG/ML BUPIVacaine 0.125%-NSS 100ML BAG EPI PRN (18:16)
[2024-02-01] MEDS ORDERED: SODIUM CHLORIDE 0.9% PF INJ 10 ML VIAL EPI PRN (18:16)
[2024-02-01] MEDS ORDERED: LIDOCAINE 2% MPF LOCAL 5 ML VIAL EPI PRN (18:16)
[2024-02-01] MEDS ORDERED: ePHEDrine sulfate 50 MG/ML AMP IV PRN ×2 (18:16→21:35)
[2024-02-01] MEDS ORDERED: NALBUPHINE HCL INJ 10 MG/ML AMP IV PRN ×2 (18:16→21:35)
[2024-02-01] MEDS ORDERED: NALOXONE HCL 0.4 MG/1 ML VIAL/CARP IV PRN ×2 (18:16→21:35)
[2024-02-01] MEDS ORDERED: fentaNYL citrate PF 100 MCG/2 ML VIAL EPI PRN (18:16)
[2024-02-01] MEDS ORDERED: NALOXONE HCL 1 MG in SODIUM CHLORIDE 0.9% 1,000 ML IV PRN ×2 (18:16→21:35)
[2024-02-01] MEDS ORDERED: ONDANSETRON INJ 2 MG/ML 2 ML VIAL IV PRN ×3 (18:16→21:35)
[2024-02-01] MEDS ORDERED: ROPIVACAINE 0.5% PF 5 MG/ML 20 ML VIAL EPI PRN (18:16)
[2024-02-01] MEDS: fentaNYL citrate PF 100 MCG/2 ML VIAL ONE (18:21)
[2024-02-01] MEDS: ePHEDrine sulfate 50 MG/ML AMP ONE (18:21)
--- NOTE | 2024-02-01 19:19 | Obstetrical Progress Note ---
Date of Service February 01, 2024 Assessment & Plan Admission and Anticipated Discharge Date Admission Date: February 01, 2024 Subjective FHR had been reassuring, started to have decelerations again, most of them are late VE; unchanged 5-6 cm/ 60%/-2 Discussed the findings, CHT superimposed preeclampsia with severe features, on IV magnesium for seizure prophylaxis, category II strip, arrest of dilatation in active phase of labor, remote from delivery Recommended Primary Csection Patient understands C section is a major surgery, with risks including but not limited to bleeding , infection, injury to surrounding organs like bowels, bladder, ureters, adhesions, scarring, wound infection, blood cloths in legs/ lungs, longer recovery. All questions were answered. She signed an informed consent. Results & Data Vital Signs (Past 12 Hours) Vital Signs Temp Pulse Resp BP Pulse Ox 02/01/24 19:11 79 99 02/01/24 19:07 81 91 02/01/24 19:06 75 98 02/01/24 19:01 86 99 02/01/24 19:00 16 02/01/24 19:00 16 02/01/24 18:57 70 94 02/01/24 18:56 70 94 02/01/24 18:51 69 96 02/01/24 18:48 70 155/87 H 02/01/24 18:46 71 96 02/01/24 18:41 69 96 02/01/24 18:36 78 99 02/01/24 18:31 76 97 02/01/24 18:29 70 163/94 H 02/01/24 18:26 69 97 02/01/24 18:23 71 166/95 H 02/01/24 18:21 75 99 02/01/24 18:18 75 159/96 H 02/01/24 18:16 79 99 02/01/24 18:15 36.8 C 02/01/24 18:13 80 143/101 H 02/01/24 18:11 81 97 02/01/24 18:07 77 131/73 02/01/24 18:06 88 98 02/01/24 18:03 82 02/01/24 18:03 87 142/79 H 94 02/01/24 18:01 85 100 02/01/24 18:00 6 L 02/01/24 18:00 6 L 02/01/24 17:59 79 141/84 H 02/01/24 17:56 80 97 02/01/24 17:54 81 130/73 02/01/24 17:51 92 H 99 02/01/24 17:48 76 125/63 02/01/24 17:46 78 96 02/01/24 17:43 82 130/69 02/01/24 17:41 86 99 02/01/24 17:39 83 133/74 02/01/24 17:36 78 97 02/01/24 17:34 82 133/76 02/01/24 17:31 83 99 02/01/24 17:27 82 139/75 02/01/24 17:26 82 99 02/01/24 17:23 84 150/84 H 02/01/24 17:21 85 99 02/01/24 17:17 81 141/77 H 02/01/24 17:16 82 99 02/01/24 17:15 16 02/01/24 17:15 36.9 C 16 02/01/24 17:13 84 136/76 02/01/24 17:11 86 99 02/01/24 17:07 84 129/81 02/01/24 17:06 73 96 02/01/24 17:04 75 136/79 02/01/24 17:01 83 99 02/01/24 16:58 67 126/75 02/01/24 16:56 70 98 02/01/24 16:52 69 125/69 02/01/24 16:51 68 97 02/01/24 16:47 73 136/83 02/01/24 16:46 75 99 02/01/24 16:43 67 135/75 02/01/24 16:41 68 99 02/01/24 16:37 69 130/74 02/01/24 16:36 72 99 02/01/24 16:34 81 153/76 H 02/01/24 16:31 80 98 02/01/24 16:29 76 141/79 H 02/01/24 16:26 78 100 02/01/24 16:24 129/91 02/01/24 16:21 83 100 02/01/24 16:19 70 106/64 02/01/24 16:16 71 100 02/01/24 16:11 84 97 02/01/24 16:06 80 100 02/01/24 16:05 86 91 02/01/24 16:02 118/74 02/01/24 16:00 18 02/01/24 16:00 18 02/01/24 16:00 100 02/01/24 16:00 76 02/01/24 16:00 81 116/66 02/01/24 15:59 84 125/67 02/01/24 15:55 78 100 02/01/24 15:50 88 99 02/01/24 15:46 82 132/85 02/01/24 15:45 78 100 02/01/24 15:43 76 131/90 02/01/24 15:40 77 136/92 100 02/01/24 15:37 75 138/85 02/01/24 15:35 76 100 02/01/24 15:34 81 141/84 H 86 L 02/01/24 15:30 114 H 145/92 H 87 L 02/01/24 15:28 72 159/96 H 02/01/24 15:25 93 02/01/24 15:25 85 02/01/24 15:25 68 153/92 H 02/01/24 15:22 71 180/98 H 02/01/24 15:21 82 191/88 H 92 02/01/24 15:20 83 98 02/01/24 15:15 100 02/01/24 15:15 82 02/01/24 15:15 83 92 02/01/24 15:10 73 100 02/01/24 15:05 76 100 02/01/24 15:00 81 18 100 02/01/24 14:57 79 167/104 H 02/01/24 14:55 78 100 02/01/24 14:50 71 100 02/01/24 14:45 73 100 02/01/24 14:40 74 100 02/01/24 14:35 73 100 02/01/24 14:30 70 18 100 02/01/24 14:25 77 98 02/01/24 14:22 64 168/98 H 02/01/24 14:20 74 99 02/01/24 14:15 68 97 02/01/24 14:10 77 100 02/01/24 14:05 74 100 02/01/24 14:00 77 100 02/01/24 13:55 72 100 02/01/24 13:50 75 99 02/01/24 13:45 66 96 02/01/24 13:40 72 98 02/01/24 13:35 65 98 02/01/24 13:30 63 18 98 02/01/24 13:25 63 100 02/01/24 13:21 62 154/96 H 02/01/24 13:20 70 99 02/01/24 13:15 74 100 02/01/24 13:10 67 99 02/01/24 13:05 65 100 02/01/24 13:00 69 99 02/01/24 12:55 73 100 02/01/24 12:50 67 99 02/01/24 12:45 77 100 02/01/24 12:40 72 100 02/01/24 12:35 100 02/01/24 12:35 79 02/01/24 12:35 78 138/91 02/01/24 12:30 87 16 99 02/01/24 12:25 73 97 02/01/24 12:20 69 96 02/01/24 12:15 70 96 02/01/24 12:10 69 95 02/01/24 12:05 67 97 02/01/24 12:00 71 97 02/01/24 11:55 80 99 02/01/24 11:50 79 98 02/01/24 11:47 78 94 02/01/24 11:45 70 95 02/01/24 11:40 73 95 02/01/24 11:35 72 96 02/01/24 11:30 67 95 02/01/24 11:25 74 96 02/01/24 11:20 83 97 02/01/24 11:15 36.5 C 79 16 98 02/01/24 11:11 68 94 02/01/24 11:10 70 95 02/01/24 11:05 74 96 02/01/24 11:00 81 96 02/01/24 10:59 65 18 115/66 02/01/24 10:58 75 94 02/01/24 10:55 68 93 02/01/24 10:50 69 94 02/01/24 10:47 67 94 02/01/24 10:45 67 93 02/01/24 10:40 72 94 02/01/24 10:35 66 94 02/01/24 10:33 70 94 02/01/24 10:30 74 22 100 02/01/24 10:28 78 139/91 02/01/24 10:25 84 100 02/01/24 10:20 80 100 02/01/24 10:15 84 100 02/01/24 10:10 78 99 02/01/24 10:05 85 100 02/01/24 10:00 100 02/01/24 10:00 83 02/01/24 10:00 85 134/80 02/01/24 09:55 79 100 02/01/24 09:50 80 100 02/01/24 09:45 84 100 02/01/24 09:40 82 100 02/01/24 09:35 79 98 02/01/24 09:30 77 18 100 02/01/24 09:29 78 135/90 02/01/24 09:25 81 100 02/01/24 09:20 76 100 02/01/24 09:15 77 100 02/01/24 09:10 81 100 02/01/24 09:05 72 99 02/01/24 09:00 84 99 02/01/24 08:59 85 140/97 02/01/24 08:55 84 99 02/01/24 08:50 81 98 02/01/24 08:45 84 99 02/01/24 08:40 86 97 02/01/24 08:35 90 99 02/01/24 08:30 85 18 99 02/01/24 08:25 98 02/01/24 08:25 86 02/01/24 08:25 82 145/96 H 02/01/24 08:20 82 98 02/01/24 08:19 83 165/95 H 02/01/24 08:15 97 02/01/24 08:15 81 02/01/24 08:15 84 159/103 H 02/01/24 08:10 82 97 02/01/24 08:09 84 152/92 H 02/01/24 08:06 81 155/92 H 02/01/24 08:05 82 98 02/01/24 08:04 81 155/92 H 02/01/24 08:00 99 02/01/24 08:00 87 02/01/24 08:00 82 148/99 H 02/01/24 07:59 80 144/98 H 02/01/24 07:55 82 98 02/01/24 07:51 70 172/104 H 02/01/24 07:50 72 100 02/01/24 07:46 74 172/104 H 02/01/24 07:45 77 99 02/01/24 07:40 70 98 02/01/24 07:35 70 100 02/01/24 07:31 36.5 C 71 16 155/103 H 02/01/24 07:30 72 100 02/01/24 07:25 72 100 02/01/24 07:20 68 100 02/01/24 07:18 66 175/107 H
[2024-02-01] MEDS: CITRIC ACID/SODIUM CITRATE 15 ML UDC PO SCH (19:48)
--- NOTE | 2024-02-01 19:50 | Anesthesiology Consultation ---
Date of Service February 01, 2024 Assessment & Plan Chart Review Chart Review: Acceptable Risk for Surgery and Patient NOT seen in Pre Admission Testing Consults Requested none ASA ASA3 Proposed Anesthesia Anesthesia Type: Spinal (+Intrathecal narcotics.) Risk / Benefits Reviewed With: PT / POA / Parent / Guardian, Accepts Plan and Informed Consent Obtained Additional Notes patient has epidural working well for labor. however, given the spinal fusion we discussed the possibility that a surgical dose of anesthetic may have a poorly covered spot during surgery. i think the best plan for surgical anesthetic would be to remove the epidural catheter in the operating room and place a single shot subarachnoid block for surgery. History Surgery Operation Date: 02/01/24 20:00 Proposed Procedures p Section in LD - Garcia Lenz MD Height/Weight Height: 5 ft 5 in Weight: 86.636 kg Allergies Allergy/AdvReac Type Severity Reaction Status Date / Time No Known Allergies Allergy Unverified 01/22/24 14:49 Medications Home Medications Medication Instructions Recorded Confirmed Last Taken 1 tab PO DAILY 01/22/24 02/01/24 01/31/24 09:00 amlodipine 5 mg tablet 5 mg PO DAILY 01/22/24 02/01/24 01/31/24 09:00 aspirin 81 mg capsule 81 mg PO DAILY 01/22/24 02/01/24 01/31/24 09:00 bupropion HCl 150 mg 24 hr tablet, 150 mg PO QAM 01/22/24 02/01/24 01/25/24 09:00 extended release fluoxetine 20 mg capsule 40 mg PO DAILY 01/22/24 02/01/24 01/31/24 09:00 propranolol 80 mg capsule,24 80 mg PO DAILY 01/22/24 02/01/24 01/31/24 09:00 hr,extended release Active Medications Generic Name Dose Route Start Last Admin Trade Name Freq PRN Reason Stop Dose Admin Acetaminophen 1,000 mg 02/01/24 02:39 02/01/24 12:45 Acetaminophen 500 Mg Tab PO 03/02/24 02:38 1,000 mg Q8H PRN Administration Headache Fluoxetine HCl 40 mg 02/01/24 09:15 02/01/24 12:38 Fluoxetine Hcl 20 Mg Cap PO 03/02/24 09:14 40 mg DAILY GENARO Administration Magnesium Sulfate 40 gm in 1,000 mls @ 25 mls/hr 02/01/24 00:15 02/01/24 19:02 Magnesium Sulfate / Wtr IV 03/02/24 00:14 1 gm/hr .Q24H GENARO 25 mls/hr Infusion 1 GM/HR Penicillin G Potassium 3 mu/ 106 mls @ 100 mls/hr 02/01/24 03:35 02/01/24 19:10 Dextrose IV 02/11/24 03:34 Infused Q4H PRN Infusion GBS(+) Until Delivery Oxytocin 30 units in 500 mls @ 0 mls/hr 02/01/24 08:33 02/01/24 19:10 Pitocin 30 Units/Nss IV 02/03/24 08:32 0 units/hr .Q0M PRN 0 mls/hr Labor Induction/Augmentation Titration Protocol 0 UNITS/HR Labetalol HCl 100 mg 02/01/24 08:15 02/01/24 13:53 Labetalol Hcl 100 Mg Tab PO 03/02/24 08:14 100 mg Q8 GENARO Administration Misoprostol 50 mcg 02/01/24 04:50 02/01/24 18:21 Misoprostol 50 Mcg Tab PO 03/02/24 04:49 Not Given Q4H GENARO Propranolol HCl 80 mg 02/01/24 09:15 02/01/24 12:41 Propranolol Hcl La 80 Mg Capcr PO 03/02/24 09:14 80 mg DAILY GENARO Administration Past Medical History Medical History Anxiety with depression History of eczema Polycystic kidney disease Exercise / Class Metabolic Activity II 4-5 Yardwork/Stairs/Walk up hill Past Surgical History Surgical History History of lumbar fusion L4-S1 decompression/fusion (2011) Past Anesthesia History No Hx of Anesthesia Complications and No Family Hx of Anesthesia Complications History of PONV No Hx of PONV and No Hx of Motion Sickness Social History Smoking Status: Never smoker Do You Dip or Chew Tobacco: No Hx Alcohol Use: No Hx Substance Use: Yes substance use type: marijuana Last Used Substance Other:: Prior to Physical Exam Vital Signs Last Vital Signs Temp 36.9 C 02/01/24 19:16 Pulse 85 02/01/24 19:46 Resp 18 02/01/24 19:16 BP 153/91 H 02/01/24 19:33 Pulse Ox 99 02/01/24 19:46 O2 Del Method Room Air 02/01/24 19:16 ENMT Mouth: no dentition abnormality Thyromental Distance: > or= 3.5 Finger Breadths Mallampati Class: II Neck normal visual inspection Respiratory normal respiratory effort Auscultation: lungs clear to auscultation bilaterally Cardiovascular Rate/Rhythm: regular rate and regular rhythm Psychiatric Orientation: alert Testing Laboratory Results 02/01/24 14:46 02/01/24 14:46
[2024-02-01] MEDS ORDERED: MoRPHine SULFATE PF 1 MG/ML 10 ML AMP/VIAL ONE (19:55)
--- NOTE | 2024-02-01 19:55 | Obstetrical Progress Note ---
Date of Service February 01, 2024 Assessment & Plan Admission and Anticipated Discharge Date Admission Date: February 01, 2024 Subjective OR is getting ready Vagina is washed with betadine, Cervix unchanged FHR categ I Continue to monitor Results & Data Vital Signs (Past 12 Hours) Vital Signs Temp Pulse Resp BP Pulse Ox O2 Del Method 02/01/24 19:51 83 97 02/01/24 19:48 82 157/94 H 02/01/24 19:46 85 99 02/01/24 19:41 77 96 02/01/24 19:36 70 97 02/01/24 19:33 75 153/91 H 02/01/24 19:31 80 100 02/01/24 19:26 82 98 02/01/24 19:22 75 179/106 H 02/01/24 19:21 76 100 02/01/24 19:18 76 196/93 H 02/01/24 19:16 36.9 C 18 02/01/24 19:16 18 02/01/24 19:16 Room Air 02/01/24 19:16 78 99 02/01/24 19:11 79 99 02/01/24 19:07 81 91 02/01/24 19:06 75 98 02/01/24 19:01 86 99 02/01/24 19:00 16 02/01/24 19:00 16 02/01/24 18:57 70 94 02/01/24 18:56 70 94 02/01/24 18:51 69 96 02/01/24 18:48 70 155/87 H 02/01/24 18:46 71 96 02/01/24 18:41 69 96 02/01/24 18:36 78 99 02/01/24 18:31 76 97 02/01/24 18:29 70 163/94 H 02/01/24 18:26 69 97 02/01/24 18:23 71 166/95 H 02/01/24 18:21 75 99 02/01/24 18:18 75 159/96 H 02/01/24 18:16 79 99 02/01/24 18:15 36.8 C 02/01/24 18:13 80 143/101 H 02/01/24 18:11 81 97 02/01/24 18:07 77 131/73 02/01/24 18:06 88 98 02/01/24 18:03 82 02/01/24 18:03 87 142/79 H 94 02/01/24 18:01 85 100 02/01/24 18:00 6 L 02/01/24 18:00 6 L 02/01/24 17:59 79 141/84 H 02/01/24 17:56 80 97 02/01/24 17:54 81 130/73 02/01/24 17:51 92 H 99 02/01/24 17:48 76 125/63 02/01/24 17:46 78 96 02/01/24 17:43 82 130/69 02/01/24 17:41 86 99 02/01/24 17:39 83 133/74 02/01/24 17:36 78 97 02/01/24 17:34 82 133/76 02/01/24 17:31 83 99 02/01/24 17:27 82 139/75 02/01/24 17:26 82 99 02/01/24 17:23 84 150/84 H 02/01/24 17:21 85 99 02/01/24 17:17 81 141/77 H 02/01/24 17:16 82 99 02/01/24 17:15 16 02/01/24 17:15 36.9 C 16 02/01/24 17:13 84 136/76 02/01/24 17:11 86 99 02/01/24 17:07 84 129/81 02/01/24 17:06 73 96 02/01/24 17:04 75 136/79 02/01/24 17:01 83 99 02/01/24 16:58 67 126/75 02/01/24 16:56 70 98 02/01/24 16:52 69 125/69 02/01/24 16:51 68 97 02/01/24 16:47 73 136/83 02/01/24 16:46 75 99 02/01/24 16:43 67 135/75 02/01/24 16:41 68 99 02/01/24 16:37 69 130/74 02/01/24 16:36 72 99 02/01/24 16:34 81 153/76 H 02/01/24 16:31 80 98 02/01/24 16:29 76 141/79 H 02/01/24 16:26 78 100 02/01/24 16:24 129/91 02/01/24 16:21 83 100 02/01/24 16:19 70 106/64 02/01/24 16:16 71 100 02/01/24 16:11 84 97 02/01/24 16:06 80 100 02/01/24 16:05 86 91 02/01/24 16:02 118/74 02/01/24 16:00 18 02/01/24 16:00 18 02/01/24 16:00 100 02/01/24 16:00 76 02/01/24 16:00 81 116/66 02/01/24 15:59 84 125/67 02/01/24 15:55 78 100 02/01/24 15:50 88 99 02/01/24 15:46 82 132/85 02/01/24 15:45 78 100 02/01/24 15:43 76 131/90 02/01/24 15:40 77 136/92 100 02/01/24 15:37 75 138/85 02/01/24 15:35 76 100 02/01/24 15:34 81 141/84 H 86 L 02/01/24 15:30 114 H 145/92 H 87 L 02/01/24 15:28 72 159/96 H 02/01/24 15:25 93 02/01/24 15:25 85 02/01/24 15:25 68 153/92 H 02/01/24 15:22 71 180/98 H 02/01/24 15:21 82 191/88 H 92 02/01/24 15:20 83 98 02/01/24 15:15 100 02/01/24 15:15 82 02/01/24 15:15 83 92 02/01/24 15:10 73 100 02/01/24 15:05 76 100 02/01/24 15:00 81 18 100 02/01/24 14:57 79 167/104 H 02/01/24 14:55 78 100 02/01/24 14:50 71 100 02/01/24 14:45 73 100 02/01/24 14:40 74 100 02/01/24 14:35 73 100 02/01/24 14:30 70 18 100 02/01/24 14:25 77 98 02/01/24 14:22 64 168/98 H 02/01/24 14:20 74 99 02/01/24 14:15 68 97 02/01/24 14:10 77 100 02/01/24 14:05 74 100 02/01/24 14:00 77 100 02/01/24 13:55 72 100 02/01/24 13:50 75 99 02/01/24 13:45 66 96 02/01/24 13:40 72 98 02/01/24 13:35 65 98 02/01/24 13:30 63 18 98 02/01/24 13:25 63 100 02/01/24 13:21 62 154/96 H 02/01/24 13:20 70 99 02/01/24 13:15 74 100 02/01/24 13:10 67 99 02/01/24 13:05 65 100 02/01/24 13:00 69 99 02/01/24 12:55 73 100 02/01/24 12:50 67 99 02/01/24 12:45 77 100 02/01/24 12:40 72 100 02/01/24 12:35 100 02/01/24 12:35 79 02/01/24 12:35 78 138/91 02/01/24 12:30 87 16 99 02/01/24 12:25 73 97 02/01/24 12:20 69 96 02/01/24 12:15 70 96 02/01/24 12:10 69 95 02/01/24 12:05 67 97 02/01/24 12:00 71 97 02/01/24 11:55 80 99 02/01/24 11:50 79 98 02/01/24 11:47 78 94 02/01/24 11:45 70 95 02/01/24 11:40 73 95 02/01/24 11:35 72 96 02/01/24 11:30 67 95 02/01/24 11:25 74 96 02/01/24 11:20 83 97 02/01/24 11:15 36.5 C 79 16 98 02/01/24 11:11 68 94 02/01/24 11:10 70 95 02/01/24 11:05 74 96 02/01/24 11:00 81 96 02/01/24 10:59 65 18 115/66 02/01/24 10:58 75 94 02/01/24 10:55 68 93 02/01/24 10:50 69 94 02/01/24 10:47 67 94 02/01/24 10:45 67 93 02/01/24 10:40 72 94 02/01/24 10:35 66 94 02/01/24 10:33 70 94 02/01/24 10:30 74 22 100 02/01/24 10:28 78 139/91 02/01/24 10:25 84 100 02/01/24 10:20 80 100 02/01/24 10:15 84 100 02/01/24 10:10 78 99 02/01/24 10:05 85 100 02/01/24 10:00 100 02/01/24 10:00 83 02/01/24 10:00 85 134/80 02/01/24 09:55 79 100 02/01/24 09:50 80 100 02/01/24 09:45 84 100 02/01/24 09:40 82 100 02/01/24 09:35 79 98 02/01/24 09:30 77 18 100 02/01/24 09:29 78 135/90 02/01/24 09:25 81 100 02/01/24 09:20 76 100 02/01/24 09:15 77 100 02/01/24 09:10 81 100 02/01/24 09:05 72 99 02/01/24 09:00 84 99 02/01/24 08:59 85 140/97 02/01/24 08:55 84 99 02/01/24 08:50 81 98 02/01/24 08:45 84 99 02/01/24 08:40 86 97 02/01/24 08:35 90 99 02/01/24 08:30 85 18 99 02/01/24 08:25 98 02/01/24 08:25 86 02/01/24 08:25 82 145/96 H 02/01/24 08:20 82 98 02/01/24 08:19 83 165/95 H 02/01/24 08:15 97 02/01/24 08:15 81 02/01/24 08:15 84 159/103 H 02/01/24 08:10 82 97 02/01/24 08:09 84 152/92 H 02/01/24 08:06 81 155/92 H 02/01/24 08:05 82 98 02/01/24 08:04 81 155/92 H 02/01/24 08:00 99 02/01/24 08:00 87 02/01/24 08:00 82 148/99 H 02/01/24 07:59 80 144/98 H
[2024-02-01] MEDS: ceFAZolin 2000MG 2,000 MG/15 ML SYR IV SCH (19:57)
[2024-02-01] MEDS ORDERED: ONDANSETRON INJ 2 MG/ML 2 ML VIAL ONE (19:57)
[2024-02-01] MEDS: AZITHROMYCIN 500 MG in SODIUM CHLORIDE 0.9% 250 ML IV SCH (20:10)
[2024-02-01] MEDS ORDERED: SODIUM CHLORIDE 0.9% 1,000 ML IV SCH (20:15)
[2024-02-01] MEDS ORDERED: OXYTOCIN 10 UNITS/ML VIAL ONE ×3 (20:21→20:36)
[2024-02-01] MEDS ORDERED: KETOROLAC 30 MG/ML VIAL ONE (20:37)
[2024-02-01] MEDS: LIDOCAINE 2%/EPINEPHRINE 1:200,000 20 ML PF EPI STA (20:44)
[2024-02-01] MEDS: fentaNYL citrate PF 100 MCG/2 ML VIAL EPI STA (20:44)
[2024-02-01] MEDS: BUPIVACAINE 0.25% PF 30 ML VIAL EPI STA (20:44)
[2024-02-01] MEDS ORDERED: PROMETHAZINE 12.5 MG/50.5 ML BAG IV PRN (21:22)
[2024-02-01] MEDS ORDERED: HYDROCORTISONE ACETATE 25 MG SUPP PR PRN (21:22)
[2024-02-01] MEDS ORDERED: ACETAMINOPHEN 1,000 MG/100 ML VIAL IV PRN (21:22)
[2024-02-01] MEDS ORDERED: SENNA 8.6 MG TAB PO PRN (21:22)
[2024-02-01] MEDS ORDERED: HYDROmorphone INJ 0.5 MG/0.5 ML SYR IV PRN ×2 (21:22→21:35)
[2024-02-01] MEDS ORDERED: MAGNESIUM HYDROXIDE SUSP 30 ML UDC PO PRN (21:22)
[2024-02-01] MEDS ORDERED: diphenhydrAMINE Capsule 25 MG CAP PO PRN (21:22)
[2024-02-01] MEDS ORDERED: BENZOCAINE 20% SPRY 85 APPLN/85 GM CAN EXT PRN (21:22)
--- NOTE | 2024-02-01 21:28 | Operative Report ---
Post Operative Report Pre & Post Diagnosis Operation Date: 02/01/24 20:00 Pre-Op Diagnosis: 1. Chronic htn with pre eclampsia with severe features 2. Arrest of dilation 3. Category II tracing 4. Remote from delivery Post-Op Diagnosis: 1. Same 2. Live male child at 2026 on 02/01/24 I identified the patient and participated in the time-out.: Yes Procedure Operation Date: 02/01/24 20:00 Actual Procedures p Section in LD - Garcia Lenz MD Surgeon Garcia Lenz MD Group Account Director Ilene Carlton RN Quantitative Blood Loss (QBL) 530 Findings Consistent with Post-Op Diagnosis Baby was a viable male infant delivered at 20:27 PM in cephalic presentation, Apgars 8/9, weight was 266 0 g, Maternal findings normal uterus fallopian tubes and ovaries. Specimens Placenta Drains Castro catheter drained 200 mL of urine Anesthesia Type Spinal Complications none Disposition Accompanied Patient To Recovery: Yes Indications patient is a 33-year-old G1, P0 at 37 weeks and 3 days of gestation who was admitted early this morning around midnight for chronic hypertension during , superimposed with preeclampsia with severe features, started on IV magnesium for seizure prophylaxis as well as induction of labor with p.o. Cytotec. Induction was continued this morning with Castro bulb mechanical dilatation and oxytocin, AROM was performed this afternoon and oxytocin was continued. Despite adequate contractions cervix remained the same with no jacquard loom card changer hours, heart rate was category 2, remote from delivery, decision was made to proceed with primary due to above findings. See progress note for details. Description of Procedure Patient was taken to operating room where a spinal anesthesia was given without difficulty. She was placed in dorsal supine position with a leftward tilt. She was prepared and draped in usual sterile fashion. A financial skin incision was made and carried through to the underlying layer of fascia with the Bovie. Fascia was incised in the midline and incision was extended laterally with the help of Pacheco scissors. Then the upper aspect of the fascial incision was grasped with 2 Leslie clamps elevated the underlying rectus muscles were dissected off sharply with Pacheco scissors. Same thing was done on the lower incision. Then the muscles were in the midline, peritoneum was identified grasped with 2 pickups and entered sharply with Metzenbaum scissors. Peritoneal incision was extended superior and inferiorly with good visualization of the bladder. The bladder blade was inserted. Vesicouterine peritoneum was identified, grasped with pickups and entered sharply with Metzenbaum scissors, bladder flap was created digitally and bladder blade was reinserted. Uterus was incised in transverse fashion, incision was extended laterally, membranes were ruptured and clear fluid was obtained. They came loops of cord into the incision. Baby's head was delivered without difficulty, followed by shoulders and body with minimal traction without difficulty. Mouth and nose were suctioned there was dried on the field he was vigorously crying and moving. The cord was clamped times and cut at 1 minute delay and then the was handed off to the pediatric team. Then the placenta was delivered manually as intact and complete. Uterus was externalized and cleared of all clots and debris's. Uterine incision was repaired with 0 Vicryl in a running locked fashion, second umbricating layer was placed with the same suture in running locked fashion. Excellent hemostasis achieved. Cul-de-sac and the pelvis was irrigated with warm normal saline and suctioned. Incision was checked of anesthetic again. Uterus was returned to the abdomen, parietal peritoneum was reapproximated with 3-0 Vicryl in a running fashion and the muscles were reapproximated in the same suture in a running fashion. All of the fascia and rectus muscles were hemostatic. Rectus fascia was reapproximated with 0 Vicryl starting from both columns meeting in the midline. Subcuticular fat tissue was brought together with 2-0 Vicryl in a running fashion, skin was closed with 4-0 Monocryl in a subcuticular cuticular fashion. The mom and baby tolerated procedure well. Sponge needle instrument count was correct x3. she was given 2 g of cefazolin before surgery. 500 milligrams of azithromycin during surgery. No complications happened, I was present during whole procedure. My insurance administrative assistant was needed for retraction, hemostasis and aid during delivery of I attest to the content of the Intraoperative Record and any orders documented therein. Any exceptions are noted below.
[2024-02-01] MEDS ORDERED: PROMETHAZINE 6.25 MG/50.25 ML BAG IV PRN (21:35)
[2024-02-01] MEDS ORDERED: MEPERIDINE HCL 25 MG/ML CARP/VIAL IV PRN (21:35)
[2024-02-01] MEDS ORDERED: NALOXONE HCL 0.08 MG in SYRINGE 1.8 ML IV PRN (21:35)
[2024-02-01] MEDS ORDERED: oxyCODONE HCL IR 5 MG TAB (IMMEDIATE RELEASE) PO PRN (21:35)
[2024-02-01] MEDS ORDERED: MoRPHine SULFATE 2 MG/ML CARP IV PRN (21:35)
--- NOTE | 2024-02-01 21:35 | Anesthesia Procedure Note ---
Date of Service February 01, 2024 Anesthesia Post Epidural Note Vital Signs Vital Signs: Temp Pulse Resp BP Pulse Ox O2 Del Method 36.9 C 80 18 153/88 H 94 Room Air 02/01/24 19:16 02/01/24 21:31 02/01/24 19:16 02/01/24 21:31 02/01/24 21:31 02/01/24 19:16 Pain Intensity Abdomen: Pain Intensity: 0 Notes Mental Status: alert / awake / arousable Nausea / Vomiting: adequately controlled Pain: adequately controlled Airway Patency, RR, SpO2: stable & adequate BP & HR: stable & adequate Hydration State: stable & adequate Neuraxial Anesthesia: was administered and sensory block is resolving Anesthetic Complications: no major complications apparent and Pt Satisfied with anesthetic care Epidural: Removed without complications and With tip intact
--- NOTE | 2024-02-01 21:38 | Anesthesiology Progress Note ---
Date of Service February 01, 2024 Anesthesia Post Procedure Vital Signs Vital Signs: Temp Pulse Resp BP Pulse Ox O2 Del Method 02/01/24 21:36 82 97 02/01/24 21:31 80 153/88 H 94 02/01/24 21:30 86 93 02/01/24 21:26 83 155/80 H 02/01/24 19:56 84 99 02/01/24 19:51 83 97 02/01/24 19:48 82 157/94 H 02/01/24 19:46 85 99 02/01/24 19:41 77 96 02/01/24 19:36 70 97 02/01/24 19:33 75 153/91 H 02/01/24 19:31 80 100 02/01/24 19:26 82 98 02/01/24 19:22 75 179/106 H 02/01/24 19:21 76 100 02/01/24 19:18 76 196/93 H 02/01/24 19:16 36.9 C 18 02/01/24 19:16 18 02/01/24 19:16 Room Air 02/01/24 19:16 78 99 02/01/24 19:11 79 99 02/01/24 19:07 81 91 02/01/24 19:06 75 98 02/01/24 19:01 86 99 02/01/24 19:00 16 02/01/24 19:00 16 02/01/24 18:57 70 94 02/01/24 18:56 70 94 02/01/24 18:51 69 96 02/01/24 18:48 70 155/87 H 02/01/24 18:46 71 96 02/01/24 18:41 69 96 02/01/24 18:36 78 99 02/01/24 18:31 76 97 02/01/24 18:29 70 163/94 H 02/01/24 18:26 69 97 02/01/24 18:23 71 166/95 H 02/01/24 18:21 75 99 02/01/24 18:18 75 159/96 H 02/01/24 18:16 79 99 02/01/24 18:15 36.8 C 02/01/24 18:13 80 143/101 H 02/01/24 18:11 81 97 02/01/24 18:07 77 131/73 02/01/24 18:06 88 98 02/01/24 18:03 82 02/01/24 18:03 87 142/79 H 94 02/01/24 18:01 85 100 02/01/24 18:00 6 L 02/01/24 18:00 6 L 02/01/24 17:59 79 141/84 H 02/01/24 17:56 80 97 02/01/24 17:54 81 130/73 02/01/24 17:51 92 H 99 02/01/24 17:48 76 125/63 02/01/24 17:46 78 96 02/01/24 17:43 82 130/69 02/01/24 17:41 86 99 02/01/24 17:39 83 133/74 02/01/24 17:36 78 97 02/01/24 17:34 82 133/76 02/01/24 17:31 83 99 02/01/24 17:27 82 139/75 02/01/24 17:26 82 99 02/01/24 17:23 84 150/84 H 02/01/24 17:21 85 99 02/01/24 17:17 81 141/77 H 02/01/24 17:16 82 99 02/01/24 17:15 16 02/01/24 17:15 36.9 C 16 02/01/24 17:13 84 136/76 02/01/24 17:11 86 99 02/01/24 17:07 84 129/81 02/01/24 17:06 73 96 02/01/24 17:04 75 136/79 02/01/24 17:01 83 99 02/01/24 16:58 67 126/75 02/01/24 16:56 70 98 02/01/24 16:52 69 125/69 02/01/24 16:51 68 97 02/01/24 16:47 73 136/83 02/01/24 16:46 75 99 02/01/24 16:43 67 135/75 02/01/24 16:41 68 99 02/01/24 16:37 69 130/74 02/01/24 16:36 72 99 02/01/24 16:34 81 153/76 H 02/01/24 16:31 80 98 02/01/24 16:29 76 141/79 H 02/01/24 16:26 78 100 02/01/24 16:24 129/91 02/01/24 16:21 83 100 02/01/24 16:19 70 106/64 02/01/24 16:16 71 100 02/01/24 16:11 84 97 02/01/24 16:06 80 100 02/01/24 16:05 86 91 02/01/24 16:02 118/74 02/01/24 16:00 18 02/01/24 16:00 18 02/01/24 16:00 100 02/01/24 16:00 76 02/01/24 16:00 81 116/66 02/01/24 15:59 84 125/67 02/01/24 15:55 78 100 02/01/24 15:50 88 99 02/01/24 15:46 82 132/85 02/01/24 15:45 78 100 02/01/24 15:43 76 131/90 02/01/24 15:40 77 136/92 100 02/01/24 15:37 75 138/85 02/01/24 15:35 76 100 02/01/24 15:34 81 141/84 H 86 L 02/01/24 15:30 114 H 145/92 H 87 L 02/01/24 15:28 72 159/96 H 02/01/24 15:25 93 02/01/24 15:25 85 02/01/24 15:25 68 153/92 H 02/01/24 15:22 71 180/98 H 02/01/24 15:21 82 191/88 H 92 02/01/24 15:20 83 98 02/01/24 15:15 100 02/01/24 15:15 82 02/01/24 15:15 83 92 02/01/24 15:10 73 100 02/01/24 15:05 76 100 02/01/24 15:00 81 18 100 02/01/24 14:57 79 167/104 H 02/01/24 14:55 78 100 02/01/24 14:50 71 100 02/01/24 14:45 73 100 02/01/24 14:40 74 100 02/01/24 14:35 73 100 02/01/24 14:30 70 18 100 02/01/24 14:25 77 98 02/01/24 14:22 64 168/98 H 02/01/24 14:20 74 99 02/01/24 14:15 68 97 02/01/24 14:10 77 100 02/01/24 14:05 74 100 02/01/24 14:00 77 100 02/01/24 13:55 72 100 02/01/24 13:50 75 99 02/01/24 13:45 66 96 02/01/24 13:40 72 98 02/01/24 13:35 65 98 02/01/24 13:30 63 18 98 02/01/24 13:25 63 100 02/01/24 13:21 62 154/96 H 02/01/24 13:20 70 99 02/01/24 13:15 74 100 02/01/24 13:10 67 99 02/01/24 13:05 65 100 02/01/24 13:00 69 99 02/01/24 12:55 73 100 02/01/24 12:50 67 99 02/01/24 12:45 77 100 02/01/24 12:40 72 100 02/01/24 12:35 100 02/01/24 12:35 79 02/01/24 12:35 78 138/91 02/01/24 12:30 87 16 99 02/01/24 12:25 73 97 02/01/24 12:20 69 96 02/01/24 12:15 70 96 02/01/24 12:10 69 95 02/01/24 12:05 67 97 02/01/24 12:00 71 97 02/01/24 11:55 80 99 02/01/24 11:50 79 98 02/01/24 11:47 78 94 02/01/24 11:45 70 95 02/01/24 11:40 73 95 02/01/24 11:35 72 96 02/01/24 11:30 67 95 02/01/24 11:25 74 96 02/01/24 11:20 83 97 02/01/24 11:15 36.5 C 79 16 98 02/01/24 11:11 68 94 02/01/24 11:10 70 95 02/01/24 11:05 74 96 02/01/24 11:00 81 96 02/01/24 10:59 65 18 115/66 02/01/24 10:58 75 94 02/01/24 10:55 68 93 02/01/24 10:50 69 94 02/01/24 10:47 67 94 02/01/24 10:45 67 93 02/01/24 10:40 72 94 02/01/24 10:35 66 94 02/01/24 10:33 70 94 02/01/24 10:30 74 22 100 02/01/24 10:28 78 139/91 02/01/24 10:25 84 100 02/01/24 10:20 80 100 02/01/24 10:15 84 100 02/01/24 10:10 78 99 02/01/24 10:05 85 100 02/01/24 10:00 100 02/01/24 10:00 83 02/01/24 10:00 85 134/80 02/01/24 09:55 79 100 02/01/24 09:50 80 100 02/01/24 09:45 84 100 02/01/24 09:40 82 100 02/01/24 09:35 79 98 02/01/24 09:30 77 18 100 02/01/24 09:29 78 135/90 02/01/24 09:25 81 100 02/01/24 09:20 76 100 02/01/24 09:15 77 100 02/01/24 09:10 81 100 02/01/24 09:05 72 99 02/01/24 09:00 84 99 02/01/24 08:59 85 140/97 02/01/24 08:55 84 99 02/01/24 08:50 81 98 02/01/24 08:45 84 99 02/01/24 08:40 86 97 02/01/24 08:35 90 99 02/01/24 08:30 85 18 99 02/01/24 08:25 98 02/01/24 08:25 86 02/01/24 08:25 82 145/96 H 02/01/24 08:20 82 98 02/01/24 08:19 83 165/95 H 02/01/24 08:15 97 02/01/24 08:15 81 02/01/24 08:15 84 159/103 H 02/01/24 08:10 82 97 02/01/24 08:09 84 152/92 H 02/01/24 08:06 81 155/92 H 02/01/24 08:05 82 98 02/01/24 08:04 81 155/92 H 02/01/24 08:00 99 02/01/24 08:00 87 02/01/24 08:00 82 148/99 H 02/01/24 07:59 80 144/98 H 02/01/24 07:55 82 98 02/01/24 07:51 70 172/104 H 02/01/24 07:50 72 100 02/01/24 07:46 74 172/104 H 02/01/24 07:45 77 99 02/01/24 07:40 70 98 02/01/24 07:35 70 100 02/01/24 07:31 36.5 C 71 16 155/103 H 02/01/24 07:30 72 100 02/01/24 07:25 72 100 02/01/24 07:20 68 100 02/01/24 07:18 66 175/107 H 02/01/24 07:15 68 100 02/01/24 07:10 76 100 02/01/24 07:05 71 99 02/01/24 07:01 65 157/98 H 02/01/24 07:00 67 99 02/01/24 06:55 73 100 02/01/24 06:50 71 100 02/01/24 06:46 71 148/92 H 02/01/24 06:45 72 99 02/01/24 06:40 75 100 02/01/24 06:35 77 100 02/01/24 06:31 70 147/83 H 02/01/24 06:30 18 02/01/24 06:30 76 97 02/01/24 06:25 73 97 02/01/24 06:20 70 98 02/01/24 06:17 63 163/98 H 02/01/24 06:15 72 98 02/01/24 06:10 68 100 02/01/24 06:05 71 100 02/01/24 06:01 64 163/97 H 02/01/24 06:00 66 99 02/01/24 05:55 76 100 02/01/24 05:50 66 99 02/01/24 05:46 64 152/95 H 02/01/24 05:45 69 99 02/01/24 05:40 79 99 02/01/24 05:35 74 100 12/27/24 05:31 69 148/87 H 02/01/24 05:30 18 02/01/24 05:30 71 98 02/01/24 05:25 72 98 02/01/24 05:20 73 98 02/01/24 05:15 73 99 02/01/24 05:13 69 172/98 H 02/01/24 05:10 75 98 02/01/24 05:05 64 100 02/01/24 05:00 71 100 02/01/24 04:55 69 100 02/01/24 04:50 72 99 02/01/24 04:45 74 99 02/01/24 04:40 70 98 02/01/24 04:35 73 98 02/01/24 04:30 18 02/01/24 04:30 76 97 02/01/24 04:25 73 96 02/01/24 04:20 75 96 02/01/24 04:15 72 97 02/01/24 04:13 73 135/81 02/01/24 04:10 72 97 02/01/24 04:05 73 96 02/01/24 04:00 74 96 02/01/24 03:55 72 96 02/01/24 03:50 72 96 02/01/24 03:45 66 96 02/01/24 03:40 85 98 02/01/24 03:35 71 96 02/01/24 03:30 18 02/01/24 03:30 70 96 02/01/24 03:25 72 96 02/01/24 03:20 74 97 02/01/24 03:15 68 97 02/01/24 03:14 18 02/01/24 03:14 36.8 C 18 02/01/24 03:11 75 140/84 02/01/24 03:10 74 99 02/01/24 03:05 71 98 02/01/24 03:00 73 98 02/01/24 02:55 72 149/92 H 97 02/01/24 02:50 71 99 02/01/24 02:45 71 97 02/01/24 02:41 72 165/98 H 02/01/24 02:40 64 98 02/01/24 02:35 76 98 02/01/24 02:30 18 02/01/24 02:30 77 100 02/01/24 02:27 75 165/92 H 02/01/24 02:25 74 97 02/01/24 02:20 81 99 02/01/24 02:15 82 99 02/01/24 02:11 70 157/91 H 02/01/24 02:10 75 98 02/01/24 02:05 77 98 02/01/24 02:00 76 98 02/01/24 01:56 75 153/93 H 02/01/24 01:55 73 97 02/01/24 01:50 77 97 02/01/24 01:45 82 99 02/01/24 01:40 79 155/89 H 98 02/01/24 01:35 79 98 02/01/24 01:34 73 148/79 H 02/01/24 01:30 18 02/01/24 01:30 79 97 02/01/24 01:25 77 96 02/01/24 01:20 81 97 02/01/24 01:15 18 02/01/24 01:15 77 97 02/01/24 01:10 73 151/80 H 96 02/01/24 01:05 83 97 02/01/24 01:00 18 02/01/24 01:00 86 98 02/01/24 00:59 83 94 02/01/24 00:55 82 152/84 H 96 02/01/24 00:50 79 97 02/01/24 00:45 18 02/01/24 00:45 82 97 02/01/24 00:40 76 151/83 H 97 02/01/24 00:35 85 98 02/01/24 00:30 18 02/01/24 00:30 77 97 02/01/24 00:25 77 151/83 H 97 02/01/24 00:23 72 156/82 H 02/01/24 00:22 73 94 02/01/24 00:20 78 96 02/01/24 00:15 75 151/86 H 93 02/01/24 00:10 80 155/90 H 97 02/01/24 00:05 76 147/81 H 02/01/24 00:00 78 178/95 H 02/01/24 00:00 78 178/95 H 01/31/24 23:55 75 01/31/24 23:55 158/91 H 01/31/24 23:50 74 01/31/24 23:50 149/88 H 01/31/24 23:47 80 01/31/24 23:47 143/84 H 01/31/24 23:43 153/93 H 01/31/24 23:43 75 01/31/24 23:43 153/93 H 01/31/24 23:13 76 01/31/24 23:13 171/109 H 01/31/24 22:57 36.9 C 18 01/31/24 22:44 75 170/106 H Pain Intensity Abdomen: Pain Intensity: 0 Transfer of Care Handoff Completed per policy Notes Mental Status: alert / awake / arousable Nausea / Vomiting: adequately controlled Pain: adequately controlled Airway Patency, RR, SpO2: stable & adequate BP & HR: stable & adequate Hydration State: stable & adequate Neuraxial Anesthesia: was administered and sensory block is resolving Anesthetic Complications: no major complications apparent and Pt Satisfied with anesthetic care
[2024-02-01] MEDS ORDERED: DC INTRASPINAL MORPHINE SCH (21:45)
[2024-02-01] MEDS ORDERED: NO NARCOTICS OR SEDATIVES SCH (21:45)
[2024-02-01] MEDS: DIPHTHER/TETAN/PERTUS Vaccine (Tdap, Adol/Adult) 0.5mL IM ONE (21:59)
[2024-02-01] MEDS: ACETAMINOPHEN 500 MG TAB PO SCH (21:59)
[2024-02-01 23:05] LABS: Basophils # (auto) 0.03 K/uL (0.00-0.20); Basophils % (auto) 0.2 %; Eosinophils # (auto) 0.01 K/uL (0.00-0.50); Eosinophils % (auto) 0.1 %; Hematocrit (blood only) 29.9 % (37.0-47.0); Hemoglobin 10.1 g/dl (12.0-16.0); Immature Granulocytes # (auto) 0.05 K/uL (0.01-0.20); Immature Granulocytes % (auto) 0.4 %; Lymphocytes # (auto) 0.92 K/uL (1.20-3.40); Lymphocytes % (auto) 7.1 %; Mean Corpuscular Hgb Conc 33.8 g/dL (32.0-36.0); Mean Corpuscular Volume 88.7 fL (80.0-100.0); Mean Platelet Volume 11.2 fL (9.4-12.4); Monocytes # (auto) 0.61 K/uL (0.11-0.59); Monocytes % (auto) 4.7 %; Neutrophils # (auto) 11.26 K/uL (1.40-6.50); Neutrophils % (auto) 87.5 %; Platelet Count 162 K/uL (130-400); RDW Coefficient of Variation 12.7 % (11.5-14.5); Red Blood Count 3.37 M/uL (4.20-5.40); White Blood Count 12.88 K/ul (4.8-10.8)
[2024-02-01 23:14] LABS: BUN Creatinine Ratio 13.9 (10-20); Calcium 6.9 mg/dl (8.6-10.3); Creatinine Clr Calc Pharmacy 86.1 ml/min; Potassium 4.5 mmol/L (3.5-5.1)
[2024-02-01 23:26] LABS: Albumin Level 2.7 gm/dl (3.4-5.0); Bilirubin,Total 0.3 mg/dl (0.2-1.0); Globulin 2.6 gm/dl (2.5-4.0); Magnesium 5.6 mg/dl (1.7-2.4); Total Protein 5.3 gm/dl (6.0-8.3)
[2024-02-02] MEDS: ACETAMINOPHEN 325 MG TAB PO SCH (00:11)
--- NOTE | 2024-02-02 00:26 | Obstetrical Progress Note ---
Date of Service February 02, 2024 Assessment & Plan Admission and Anticipated Discharge Date Admission Date: February 01, 2024 Subjective Postop check Patient is seen and examined Feels well, no complaints Pain is under control with meds No YUNG/ Change in vision/ CP/ SOB/ Dizziness/ N&V/ VB/ Leg pain Not OOB yet Tolerating clears and crackers Plans to breast feed Explained about the surgery and findings Vital Signs Height Weight Body Mass Index Blood Pressure Temperature Pulse Rate Respiratory Rate 5 ft 5 in 86.636 kg 31.8 122/71 36.9 C 81 18 02/01/24 19:50 02/01/24 19:50 01/31/24 22:57 02/01/24 23:41 02/01/24 23:30 02/02/24 00:21 02/01/24 23:30 Pulse Oximetry 96 02/02/24 00:21 02/01/24 02/01/24 02/01/24 Range/Units 22:40 14:46 07:31 WBC 12.88 H 8.93 (4.8-10.8) K/ul RBC 3.37 L 3.99 L (4.20-5.40) M/uL Hgb 10.1 L 11.8 L (12.0-16.0) g/dl Hct 29.9 L 35.4 L (37.0-47.0) % MCV 88.7 88.7 (80.0-100.0) fL MCH 30.0 29.6 (25.0-34.0) pg MCHC 33.8 33.3 (32.0-36.0) g/dL RDW Std Deviation 41.0 41.5 (36.4-46.3) fL RDW Coeff of Rosa Isela 12.7 12.8 (11.5-14.5) % Plt Count 162 140 (130-400) K/uL MPV 11.2 11.1 (9.4-12.4) fL Immature Gran % (Auto) 0.4 0.9 % Neut % (Auto) 87.5 80.5 % Lymph % (Auto) 7.1 11.6 % Dewey % (Auto) 4.7 6.2 % Eos % (Auto) 0.1 0.6 % Baso % (Auto) 0.2 0.2 % Neut # (Auto) 11.26 H 7.19 H (1.40-6.50) K/uL Lymph # (Auto) 0.92 L 1.04 L (1.20-3.40) K/uL Dewey # (Auto) 0.61 H 0.55 (0.11-0.59) K/uL Eos # (Auto) 0.01 0.05 (0.00-0.50) K/uL Baso # (Auto) 0.03 0.02 (0.00-0.20) K/uL Immature Gran # (Auto) 0.05 0.08 (0.01-0.20) K/uL Sodium 134 L 133 L (136-145) mmol/L Potassium 4.5 4.4 (3.5-5.1) mmol/L Chloride 104 102 (98-107) mmol/L Carbon Dioxide 22 23 (21-32) mmol/L Anion Gap 8 8 (3-11) BUN 14 12 (6-23) mg/dl Creatinine 1.01 0.88 (0.6-1.2) mg/dl Est Cr Clr Drug Dosing 86.1 98.8 ml/min eGFR 75.38 88.93 BUN/Creatinine Ratio 13.9 13.6 (10-20) Glucose 107 H 96 (70-99(Fasting)) mg/dl Uric Acid (2.6-7.2) mg/dl Calcium 6.9 L 7.8 L (8.6-10.3) mg/dl Magnesium 5.6 H* 7.2 H* (1.7-2.4) mg/dl Magnesium (Sulf Ther) (4.0-8.0) mg/dL Total Bilirubin 0.3 0.2 (0.2-1.0) mg/dl Direct Bilirubin (0-0.2) mg/dl AST 32 34 (13-39) U/L ALT 27 33 (7-52) U/L Alkaline Phosphatase 90 106 H (34-104) U/L Lactate Dehydrogenase (86-244) U/L Total Protein 5.3 L 6.2 (6.0-8.3) gm/dl Albumin 2.7 L 3.1 L (3.4-5.0) gm/dl Globulin 2.6 3.1 (2.5-4.0) gm/dl Albumin/Globulin Ratio 1.0 1.0 (0.9-2) RPR Resp to Therapy Pending Blood Type Cancelled Antibody Screen Cancelled 02/01/24 01/31/24 Range/Units 07:27 23:33 WBC 6.91 (4.8-10.8) K/ul RBC 4.14 L (4.20-5.40) M/uL Hgb 12.2 (12.0-16.0) g/dl Hct 36.9 L (37.0-47.0) % MCV 89.1 (80.0-100.0) fL MCH 29.5 (25.0-34.0) pg MCHC 33.1 (32.0-36.0) g/dL RDW Std Deviation 41.8 (36.4-46.3) fL RDW Coeff of Rosa Isela 12.8 (11.5-14.5) % Plt Count 164 (130-400) K/uL MPV 11.2 (9.4-12.4) fL Immature Gran % (Auto) 0.6 % Neut % (Auto) 67.2 % Lymph % (Auto) 21.7 % Dewey % (Auto) 8.5 % Eos % (Auto) 1.6 % Baso % (Auto) 0.4 % Neut # (Auto) 4.64 (1.40-6.50) K/uL Lymph # (Auto) 1.50 (1.20-3.40) K/uL Dewey # (Auto) 0.59 (0.11-0.59) K/uL Eos # (Auto) 0.11 (0.00-0.50) K/uL Baso # (Auto) 0.03 (0.00-0.20) K/uL Immature Gran # (Auto) 0.04 (0.01-0.20) K/uL Sodium 136 (136-145) mmol/L Potassium 4.3 (3.5-5.1) mmol/L Chloride 104 (98-107) mmol/L Carbon Dioxide 26 (21-32) mmol/L Anion Gap 6 (3-11) BUN 12 (6-23) mg/dl Creatinine 0.84 (0.6-1.2) mg/dl Est Cr Clr Drug Dosing 103.5 ml/min eGFR 94.04 BUN/Creatinine Ratio 14.3 (10-20) Glucose 76 (70-99(Fasting)) mg/dl Uric Acid 7.6 H (2.6-7.2) mg/dl Calcium 8.5 L (8.6-10.3) mg/dl Magnesium (1.7-2.4) mg/dl Magnesium (Sulf Ther) 5.9 (4.0-8.0) mg/dL Total Bilirubin 0.2 (0.2-1.0) mg/dl Direct Bilirubin 0.0 (0-0.2) mg/dl AST 35 (13-39) U/L ALT 33 (7-52) U/L Alkaline Phosphatase 110 H (34-104) U/L Lactate Dehydrogenase 181 (86-244) U/L Total Protein 6.3 (6.0-8.3) gm/dl Albumin 3.3 L (3.4-5.0) gm/dl Globulin 3.0 (2.5-4.0) gm/dl Albumin/Globulin Ratio 1.1 (0.9-2) RPR Resp to Therapy Blood Type O Negative Antibody Screen NEGATIVE PE: General: Alert, orientedx3, NAD CVS: S1S2 RRR Lungs: CTAB Abd: soft, NT, ND, BS+, , fundus firm below U, Dressing C/D/I Lochia minimal Ext: NT, no edema, SCD's on, DTR 2+/2+ AP: 33 yo female s/p Primary Csection 3 hours ago, on IV magnesium 1 GR/ HOURS FOR 24 HOURS AFTER DELIVERY VSS Afebrile doing well UOP good, Labs stable, creatine 1.01 up from 0.88 Continue to monitor Results & Data Vital Signs (Past 12 Hours) Vital Signs Temp Pulse Resp BP Pulse Ox O2 Del Method 02/02/24 00:16 76 98 02/02/24 00:11 82 97 02/02/24 00:06 75 96 02/02/24 00:01 80 97 02/01/24 23:56 70 95 02/01/24 23:51 73 97 02/01/24 23:46 74 97 02/01/24 23:41 82 122/71 95 02/01/24 23:36 83 97 02/01/24 23:31 76 125/70 95 02/01/24 23:30 18 02/01/24 23:30 36.9 C 18 02/01/24 23:26 90 97 02/01/24 23:21 80 02/01/24 23:21 81 137/73 95 02/01/24 23:16 80 96 02/01/24 23:11 82 123/75 95 02/01/24 23:06 83 96 02/01/24 23:01 79 136/76 95 02/01/24 22:56 85 96 02/01/24 22:51 82 02/01/24 22:51 83 136/80 96 02/01/24 22:46 87 97 02/01/24 22:41 82 130/68 96 02/01/24 22:36 89 97 02/01/24 22:32 84 144/67 H 02/01/24 22:31 84 95 02/01/24 22:30 18 02/01/24 22:30 18 02/01/24 22:30 18 02/01/24 22:26 88 95 02/01/24 22:21 89 02/01/24 22:21 88 125/70 94 02/01/24 22:20 18 02/01/24 22:16 85 94 02/01/24 22:11 89 136/74 96 02/01/24 22:10 18 02/01/24 22:06 88 96 02/01/24 22:05 89 94 02/01/24 22:01 88 151/80 H 96 02/01/24 22:00 18 02/01/24 21:56 86 94 02/01/24 21:51 86 135/77 93 02/01/24 21:50 83 18 96 02/01/24 21:50 89 94 02/01/24 21:46 81 95 02/01/24 21:43 86 94 02/01/24 21:41 80 02/01/24 21:41 86 145/83 H 97 02/01/24 21:40 18 02/01/24 21:36 82 97 02/01/24 21:31 80 153/88 H 94 02/01/24 21:30 18 02/01/24 21:30 37.8 C H 18 02/01/24 21:30 86 93 02/01/24 21:26 83 155/80 H 02/01/24 19:56 84 99 02/01/24 19:51 83 97 02/01/24 19:48 82 157/94 H 02/01/24 19:46 85 99 02/01/24 19:41 77 96 02/01/24 19:36 70 97 02/01/24 19:33 75 153/91 H 02/01/24 19:31 80 100 02/01/24 19:26 82 98 02/01/24 19:22 75 179/106 H 02/01/24 19:21 76 100 02/01/24 19:18 76 196/93 H 02/01/24 19:16 36.9 C 18 02/01/24 19:16 18 02/01/24 19:16 Room Air 02/01/24 19:16 78 99 02/01/24 19:11 79 99 02/01/24 19:07 81 91 02/01/24 19:06 75 98 02/01/24 19:01 86 99 02/01/24 19:00 16 02/01/24 19:00 16 02/01/24 18:57 70 94 02/01/24 18:56 70 94 02/01/24 18:51 69 96 02/01/24 18:48 70 155/87 H 02/01/24 18:46 71 96 02/01/24 18:41 69 96 02/01/24 18:36 78 99 02/01/24 18:31 76 97 02/01/24 18:29 70 163/94 H 02/01/24 18:26 69 97 02/01/24 18:23 71 166/95 H 02/01/24 18:21 75 99 02/01/24 18:18 75 159/96 H 02/01/24 18:16 79 99 02/01/24 18:15 36.8 C 02/01/24 18:13 80 143/101 H 02/01/24 18:11 81 97 02/01/24 18:07 77 131/73 02/01/24 18:06 88 98 02/01/24 18:03 82 02/01/24 18:03 87 142/79 H 94 02/01/24 18:01 85 100 02/01/24 18:00 6 L 02/01/24 18:00 6 L 02/01/24 17:59 79 141/84 H 02/01/24 17:56 80 97 02/01/24 17:54 81 130/73 02/01/24 17:51 92 H 99 02/01/24 17:48 76 125/63 02/01/24 17:46 78 96 02/01/24 17:43 82 130/69 02/01/24 17:41 86 99 02/01/24 17:39 83 133/74 02/01/24 17:36 78 97 02/01/24 17:34 82 133/76 02/01/24 17:31 83 99 02/01/24 17:27 82 139/75 02/01/24 17:26 82 99 02/01/24 17:23 84 150/84 H 02/01/24 17:21 85 99 02/01/24 17:17 81 141/77 H 02/01/24 17:16 82 99 02/01/24 17:15 16 02/01/24 17:15 36.9 C 16 02/01/24 17:13 84 136/76 02/01/24 17:11 86 99 02/01/24 17:07 84 129/81 02/01/24 17:06 73 96 02/01/24 17:04 75 136/79 02/01/24 17:01 83 99 02/01/24 16:58 67 126/75 02/01/24 16:56 70 98 02/01/24 16:52 69 125/69 02/01/24 16:51 68 97 02/01/24 16:47 73 136/83 02/01/24 16:46 75 99 02/01/24 16:43 67 135/75 02/01/24 16:41 68 99 02/01/24 16:37 69 130/74 02/01/24 16:36 72 99 02/01/24 16:34 81 153/76 H 02/01/24 16:31 80 98 02/01/24 16:29 76 141/79 H 02/01/24 16:26 78 100 02/01/24 16:24 129/91 02/01/24 16:21 83 100 02/01/24 16:19 70 106/64 02/01/24 16:16 71 100 02/01/24 16:11 84 97 02/01/24 16:06 80 100 02/01/24 16:05 86 91 02/01/24 16:02 118/74 02/01/24 16:00 18 02/01/24 16:00 18 02/01/24 16:00 100 02/01/24 16:00 76 02/01/24 16:00 81 116/66 02/01/24 15:59 84 125/67 02/01/24 15:55 78 100 02/01/24 15:50 88 99 02/01/24 15:46 82 132/85 02/01/24 15:45 78 100 02/01/24 15:43 76 131/90 02/01/24 15:40 77 136/92 100 02/01/24 15:37 75 138/85 02/01/24 15:35 76 100 02/01/24 15:34 81 141/84 H 86 L 02/01/24 15:30 114 H 145/92 H 87 L 02/01/24 15:28 72 159/96 H 02/01/24 15:25 93 02/01/24 15:25 85 02/01/24 15:25 68 153/92 H 02/01/24 15:22 71 180/98 H 02/01/24 15:21 82 191/88 H 92 02/01/24 15:20 83 98 02/01/24 15:15 100 02/01/24 15:15 82 02/01/24 15:15 83 92 02/01/24 15:10 73 100 02/01/24 15:05 76 100 02/01/24 15:00 81 18 100 02/01/24 14:57 79 167/104 H 02/01/24 14:55 78 100 02/01/24 14:50 71 100 02/01/24 14:45 73 100 02/01/24 14:40 74 100 02/01/24 14:35 73 100 02/01/24 14:30 70 18 100 02/01/24 14:25 77 98 02/01/24 14:22 64 168/98 H 02/01/24 14:20 74 99 02/01/24 14:15 68 97 02/01/24 14:10 77 100 02/01/24 14:05 74 100 02/01/24 14:00 77 100 02/01/24 13:55 72 100 02/01/24 13:50 75 99 02/01/24 13:45 66 96 02/01/24 13:40 72 98 02/01/24 13:35 65 98 02/01/24 13:30 63 18 98 02/01/24 13:25 63 100 02/01/24 13:21 62 154/96 H 02/01/24 13:20 70 99 02/01/24 13:15 74 100 02/01/24 13:10 67 99 02/01/24 13:05 65 100 02/01/24 13:00 69 99 02/01/24 12:55 73 100 02/01/24 12:50 67 99 02/01/24 12:45 77 100 02/01/24 12:40 72 100 02/01/24 12:35 100 02/01/24 12:35 79 02/01/24 12:35 78 138/91 02/01/24 12:30 87 16 99 02/01/24 12:25 73 97
[2024-02-02] MEDS: SODIUM CHLORIDE 0.9% 1,000 ML IV SCH ×2 (01:01→14:55)
[2024-02-02] MEDS: SODIUM CHLORIDE 0.9% PF INJ 10 ML VIAL EPI STA (01:01)
[2024-02-02] MEDS: ceFAZolin 2000MG 2,000 MG/15 ML SYR IV ONE (03:40)
[2024-02-02] MEDS: OXYTOCIN 20 UNITS/LR 1,002 ML IV SCH (05:12)
[2024-02-02] MEDS ORDERED: CITRIC ACID/SODIUM CITRATE 15 ML UDC PO SCH (06:00)
[2024-02-02] MEDS ORDERED: Nursing to Pharmacy Communication SCH ×2 (07:45→19:45)
[2024-02-02 07:47] LABS: Basophils # (auto) 0.03 K/uL (0.00-0.20); Basophils % (auto) 0.4 %; Eosinophils # (auto) 0.02 K/uL (0.00-0.50); Eosinophils % (auto) 0.3 %; Hematocrit (blood only) 24.9 % (37.0-47.0); Hemoglobin 8.3 g/dl (12.0-16.0); Immature Granulocytes # (auto) 0.04 K/uL (0.01-0.20); Immature Granulocytes % (auto) 0.5 %; Lymphocytes # (auto) 1.36 K/uL (1.20-3.40); Lymphocytes % (auto) 17.1 %; Mean Corpuscular Hemoglobin 29.9 pg (25.0-34.0); Mean Corpuscular Hgb Conc 33.3 g/dL (32.0-36.0); Mean Corpuscular Volume 89.6 fL (80.0-100.0); Mean Platelet Volume 11.2 fL (9.4-12.4); Monocytes % (auto) 6.3 %; Neutrophils # (auto) 5.99 K/uL (1.40-6.50); Neutrophils % (auto) 75.4 %; Platelet Count 135 K/uL (130-400); RDW Coefficient of Variation 12.8 % (11.5-14.5); Red Blood Count 2.78 M/uL (4.20-5.40); White Blood Count 7.94 K/ul (4.8-10.8)
[2024-02-02] MEDS: FERROUS SULFATE 325 MG TAB PO SCH (08:47)
[2024-02-02] MEDS: PRENATAL VITAMIN 1 TAB PO SCH (08:47)
[2024-02-02] MEDS: DOCUSATE SODIUM 100 MG CAP PO SCH (08:48)
[2024-02-02] MEDS: SIMETHICONE 80 MG CHEW PO SCH (08:50)
[2024-02-02] MEDS ORDERED: PRENATAL VITAMIN 1 TAB PO SCH (09:00)
--- NOTE | 2024-02-02 09:25 | Obstetrical Progress Note ---
Date of Service February 02, 2024 Assessment & Plan Admission and Anticipated Discharge Date Admission Date: February 01, 2024 Subjective abdomen soft and non tender passing flatus bowel sounds normal bandage is clean and dry no calf tenderness urine output good on magnesium sulfate iv 1 gram/hour blood pressure is good vaginal bleeding scant hgb 8.3 Results & Data Vital Signs (Past 12 Hours) Vital Signs Temp Pulse Resp BP Pulse Ox 02/02/24 09:21 75 99 02/02/24 09:16 70 100 02/02/24 09:11 75 99 02/02/24 09:06 71 100 02/02/24 09:01 69 99 02/02/24 08:56 71 100 02/02/24 08:51 18 97 02/02/24 08:51 18 02/02/24 08:51 77 100 02/02/24 08:46 78 97 02/02/24 08:41 71 99 02/02/24 08:36 73 99 02/02/24 08:33 69 140/86 02/02/24 08:31 76 100 02/02/24 08:26 72 100 02/02/24 08:21 74 100 02/02/24 08:16 62 95 02/02/24 08:11 64 94 02/02/24 08:06 63 94 02/02/24 08:01 64 95 02/02/24 07:56 68 94 02/02/24 07:51 69 95 02/02/24 07:46 66 95 02/02/24 07:41 64 94 02/02/24 07:36 63 94 02/02/24 07:33 64 121/70 02/02/24 07:31 66 94 02/02/24 07:26 66 92 02/02/24 07:21 65 93 02/02/24 07:16 69 92 02/02/24 07:11 64 97 02/02/24 07:06 71 94 02/02/24 07:01 69 94 02/02/24 06:56 67 93 02/02/24 06:51 68 94 02/02/24 06:46 68 94 02/02/24 06:41 65 94 02/02/24 06:36 67 94 02/02/24 06:34 16 96 02/02/24 06:34 16 02/02/24 06:33 64 118/76 02/02/24 06:31 63 96 02/02/24 06:26 63 96 02/02/24 06:21 62 98 02/02/24 06:16 75 99 02/02/24 06:11 71 98 02/02/24 06:06 71 100 02/02/24 06:01 69 99 02/02/24 05:57 70 135/85 02/02/24 05:56 75 98 02/02/24 05:51 71 99 02/02/24 05:50 18 99 02/02/24 05:50 18 02/02/24 05:46 70 98 02/02/24 05:41 74 100 02/02/24 05:36 66 100 02/02/24 05:33 67 135/83 02/02/24 05:31 66 100 02/02/24 05:26 66 98 02/02/24 05:21 68 98 02/02/24 05:16 74 95 02/02/24 05:11 71 99 02/02/24 05:06 74 95 02/02/24 05:01 76 97 02/02/24 04:56 58 L 96 02/02/24 04:51 61 98 02/02/24 04:46 73 100 02/02/24 04:41 70 99 02/02/24 04:36 61 98 02/02/24 04:33 71 134/88 02/02/24 04:31 74 99 02/02/24 04:26 66 97 02/02/24 04:23 18 98 02/02/24 04:23 16 02/02/24 04:21 67 98 02/02/24 04:16 68 97 02/02/24 04:11 68 99 02/02/24 04:06 65 98 02/02/24 04:01 76 99 02/02/24 03:56 70 100 02/02/24 03:51 65 98 02/02/24 03:46 71 99 02/02/24 03:41 70 100 02/02/24 03:36 64 97 02/02/24 03:35 36.9 C 16 02/02/24 03:35 16 02/02/24 03:33 62 119/75 02/02/24 03:31 64 96 02/02/24 03:30 16 96 02/02/24 03:26 64 95 02/02/24 03:21 65 96 02/02/24 03:16 63 95 02/02/24 03:11 64 96 02/02/24 03:06 64 95 02/02/24 03:01 77 95 02/02/24 02:56 64 95 02/02/24 02:51 64 96 02/02/24 02:46 68 96 02/02/24 02:41 64 96 02/02/24 02:36 64 96 02/02/24 02:33 63 114/77 02/02/24 02:31 65 96 02/02/24 02:30 16 96 02/02/24 02:30 16 02/02/24 02:26 65 96 02/02/24 02:21 65 96 02/02/24 02:16 65 96 02/02/24 02:11 65 96 02/02/24 02:06 63 95 02/02/24 02:01 64 96 02/02/24 01:56 63 95 02/02/24 01:51 61 97 02/02/24 01:46 66 98 02/02/24 01:41 76 96 02/02/24 01:36 73 99 02/02/24 01:34 16 02/02/24 01:33 72 111/63 02/02/24 01:31 73 92 02/02/24 01:30 16 99 02/02/24 01:26 68 94 02/02/24 01:21 68 93 02/02/24 01:16 80 93 02/02/24 01:11 67 94 02/02/24 01:06 69 93 02/02/24 01:01 68 94 02/02/24 00:56 70 94 02/02/24 00:51 67 95 02/02/24 00:46 66 93 02/02/24 00:41 65 02/02/24 00:41 68 118/59 L 94 02/02/24 00:36 64 95 02/02/24 00:31 79 97 02/02/24 00:30 18 97 02/02/24 00:30 18 02/02/24 00:26 73 96 02/02/24 00:21 81 96 02/02/24 00:16 76 98 02/02/24 00:11 82 97 02/02/24 00:06 75 96 02/02/24 00:01 80 97 02/01/24 23:56 70 95 02/01/24 23:51 73 97 02/01/24 23:46 74 97 02/01/24 23:41 82 122/71 95 02/01/24 23:36 83 97 02/01/24 23:31 76 125/70 95 02/01/24 23:30 18 95 02/01/24 23:30 18 02/01/24 23:30 36.9 C 18 02/01/24 23:26 90 97 02/01/24 23:21 80 02/01/24 23:21 81 137/73 95 02/01/24 23:16 80 96 02/01/24 23:11 82 123/75 95 02/01/24 23:06 83 96 02/01/24 23:01 79 136/76 95 02/01/24 22:56 85 96 02/01/24 22:51 82 02/01/24 22:51 83 136/80 96 02/01/24 22:46 87 97 02/01/24 22:41 82 130/68 96 02/01/24 22:36 89 97 02/01/24 22:32 84 144/67 H 02/01/24 22:31 84 95 02/01/24 22:30 18 95 02/01/24 22:30 18 02/01/24 22:30 18 02/01/24 22:30 18 02/01/24 22:26 88 95 02/01/24 22:21 89 02/01/24 22:21 88 125/70 94 02/01/24 22:20 18 02/01/24 22:16 85 94 02/01/24 22:11 89 136/74 96 02/01/24 22:10 18 02/01/24 22:06 88 96 02/01/24 22:05 89 94 02/01/24 22:01 88 151/80 H 96 02/01/24 22:00 18 02/01/24 21:56 86 94 02/01/24 21:51 86 135/77 93 02/01/24 21:50 83 18 96 02/01/24 21:50 89 94 02/01/24 21:46 81 95 02/01/24 21:43 86 94 02/01/24 21:41 80 02/01/24 21:41 86 145/83 H 97 02/01/24 21:40 18 02/01/24 21:36 82 97 02/01/24 21:31 80 153/88 H 94 02/01/24 21:30 18 94 02/01/24 21:30 18 02/01/24 21:30 37.8 C H 18 02/01/24 21:30 86 93 02/01/24 21:26 83 155/80 H
[2024-02-02] MEDS ORDERED: IBUPROFEN 600 MG TAB PO PRN (10:27)
[2024-02-02] MEDS ORDERED: diphenhydrAMINE 50 MG/ML VIAL IV PRN (15:35)
[2024-02-02] MEDS ORDERED: cefOXitin 2,000 MG in DEXTROSE 5 % MINI-B 50 ML IV SCH ×2 (18:30→20:00)
[2024-02-02] MEDS: oxyCODONE HCL IR 5 MG TAB (IMMEDIATE RELEASE) PO PRN (19:20)
[2024-02-02] MEDS: traMADol HCL 50 MG TABLET PO SCH (19:20)
[2024-02-02] MEDS: cefOXitin 2,000 MG in DEXTROSE 5 % MINI-B 50 ML IV SCH (20:07)
[2024-02-02] MEDS: bisacodyL 5 MG TABEC PO SCH (20:07)
[2024-02-02] MEDS: MoRPHine SULFATE PF 1 MG/ML 10 ML AMP/VIAL INT SPINAL ONE (21:13)
[2024-02-02] MEDS: GELATIN SPONGE SZ 100 ONE (21:13)
[2024-02-03] MEDS: cefOXitin 2,000 MG in DEXTROSE 5 % MINI-B 50 ML IV SCH (04:01)
[2024-02-03 07:30] LABS: Hematocrit (blood only) 25.2 % (37.0-47.0); Hemoglobin 8.4 g/dl (12.0-16.0)
--- NOTE | 2024-02-03 09:18 | Obstetrical Progress Note ---
Date of Service February 03, 2024 Assessment & Plan Admission and Anticipated Discharge Date Admission Date: February 01, 2024 Subjective abdomen soft and non tender passing gas bandage is dry no calf tenderness ambulating well afebrile bleeding is scant hgb 8.4 will give one more dose of mefoxin Results & Data Vital Signs (Past 12 Hours) Vital Signs Temp Pulse Pulse Resp BP BP Pulse Ox 02/03/24 09:12 37 C 92 H 20 122/74 95 02/03/24 07:36 37 C 80 20 124/80 95 02/03/24 06:01 37.0 C 79 18 142/81 H 96 02/03/24 03:49 37.2 C 80 18 145/82 H 99 02/03/24 01:35 36.8 C 02/03/24 00:15 37.8 C H 02/03/24 00:05 02/02/24 22:53 37.9 C H 88 16 145/77 H 96 02/02/24 22:05 37.9 C H 80 18 149/78 H 99 O2 Del Method 02/03/24 09:12 02/03/24 07:36 Room Air 02/03/24 06:01 Room Air 02/03/24 03:49 Room Air 02/03/24 01:35 02/03/24 00:15 02/03/24 00:05 Room Air 02/02/24 22:53 Room Air 02/02/24 22:05 Room Air
[2024-02-03 19:57] VITALS: RESP 16
[2024-02-03] MEDS ORDERED: bisacodyL 10 MG SUPP PR PRN (21:22)
[2024-02-03] MEDS: ACETAMINOPHEN 325 MG TAB PO PRN (23:38)
[2024-02-04] MEDS ORDERED: ACETAMINOPHEN 325 MG TAB PO PRN (03:22)
[2024-02-04 08:07] VITALS: TEMP 98.2; O2SAT 99
--- NOTE | 2024-02-04 12:13 | Obstetrical Progress Note ---
Date of Service February 04, 2024 Subjective Ambulation: ambulating normally Voiding: no voiding problems Passing Gas:: Yes Diet Tolerance:: regular diet Lochia:: Small Feeding Type:: breast feeding Current Pain Level(1-10): 0 doing well Physical Exam Constitutional WD/WN, vitals as above Gastrointestinal (Abdomen) Inspection/Auscultation: abdomen normal to inspection abdomen soft and non-tender. incision c/d/i small area of incision with small amount of serous drainage noted. Steri-strips replaced and abd placed. Musculoskeletal Extremities: extremities normal to inspection Skin no rashes, warm and dry Psychiatric A+Ox3, euthymic affect Results & Data Vital Signs (Past 12 Hours) Vital Signs Temp Pulse Pulse Resp BP Pulse Ox O2 Del Method 02/04/24 11:39 36.8 C 74 74 16 146/91 H 99 02/04/24 07:45 Room Air 02/04/24 07:45 36.8 C 74 74 16 146/91 H 99 Room Air 02/04/24 05:20 73 139/87 Laboratory Results 01/31/24 01/31/24 02/01/24 23:00 23:33 07:27 WBC 7.79 6.91 RBC 3.64 L 4.14 L Hgb 10.7 L 12.2 Hct 31.7 L 36.9 L MCV 87.1 89.1 MCH 29.4 29.5 MCHC 33.8 33.1 RDW Std Deviation 40.1 41.8 RDW Coeff of Rosa Isela 12.7 12.8 Plt Count 143 164 MPV 11.2 11.2 Immature Gran % (Auto) 0.5 0.6 Neut % (Auto) 65.3 67.2 Lymph % (Auto) 23.2 21.7 Mcleod % (Auto) 8.9 8.5 Eos % (Auto) 1.7 1.6 Baso % (Auto) 0.4 0.4 Neut # (Auto) 5.09 4.64 Lymph # (Auto) 1.81 1.50 Mcleod # (Auto) 0.69 H 0.59 Eos # (Auto) 0.13 0.11 Baso # (Auto) 0.03 0.03 Immature Gran # (Auto) 0.04 0.04 Sodium 135 L 136 Potassium 3.9 4.3 Chloride 106 104 Carbon Dioxide 21 26 Anion Gap 8 6 BUN 14 12 Creatinine 0.80 0.84 Est Cr Clr Drug Dosing 108.7 103.5 eGFR 99.71 94.04 BUN/Creatinine Ratio 17.5 14.3 Glucose 93 76 Uric Acid 7.6 H Calcium 8.1 L 8.5 L Magnesium Magnesium (Sulf Ther) 5.9 Total Bilirubin 0.2 0.2 Direct Bilirubin 0.0 AST 32 35 ALT 30 33 Alkaline Phosphatase 105 H 110 H Lactate Dehydrogenase 181 Total Protein 6.0 6.3 Albumin 3.2 L 3.3 L Globulin 2.8 3.0 Albumin/Globulin Ratio 1.1 1.1 Ur Random Creatinine 35.3 U Random Total Protein 86.8 H Protein/Creatinin Ratio 2.5 H Urine Opiates Screen Neg Ur Methadone, Qual Neg Urine Fentanyl Screen Neg Urine Barbiturates Neg Ur Phencyclidine (PCP) Neg U Amphetamin/Meth Scrn Neg MDMA (Ecstasy) Screen Neg U Benzodiazepines Scrn Neg Ur Cocaine Metabolite Neg U Marijuana (THC) Screen Neg RPR Resp to Therapy Blood Type O Negative Antibody Screen NEGATIVE Screen 02/01/24 02/01/24 02/01/24 07:31 14:46 22:40 WBC 8.93 12.88 H RBC 3.99 L 3.37 L Hgb 11.8 L 10.1 L Hct 35.4 L 29.9 L MCV 88.7 88.7 MCH 29.6 30.0 MCHC 33.3 33.8 RDW Std Deviation 41.5 41.0 RDW Coeff of Rosa Isela 12.8 12.7 Plt Count 140 162 MPV 11.1 11.2 Immature Gran % (Auto) 0.9 0.4 Neut % (Auto) 80.5 87.5 Lymph % (Auto) 11.6 7.1 Mcleod % (Auto) 6.2 4.7 Eos % (Auto) 0.6 0.1 Baso % (Auto) 0.2 0.2 Neut # (Auto) 7.19 H 11.26 H Lymph # (Auto) 1.04 L 0.92 L Mcleod # (Auto) 0.55 0.61 H Eos # (Auto) 0.05 0.01 Baso # (Auto) 0.02 0.03 Immature Gran # (Auto) 0.08 0.05 Sodium 133 L 134 L Potassium 4.4 4.5 Chloride 102 104 Carbon Dioxide 23 22 Anion Gap 8 8 BUN 12 14 Creatinine 0.88 1.01 Est Cr Clr Drug Dosing 98.8 86.1 eGFR 88.93 75.38 BUN/Creatinine Ratio 13.6 13.9 Glucose 96 107 H Uric Acid Calcium 7.8 L 6.9 L Magnesium 7.2 H* 5.6 H* Magnesium (Sulf Ther) Total Bilirubin 0.2 0.3 Direct Bilirubin AST 34 32 ALT 33 27 Alkaline Phosphatase 106 H 90 Lactate Dehydrogenase Total Protein 6.2 5.3 L Albumin 3.1 L 2.7 L Globulin 3.1 2.6 Albumin/Globulin Ratio 1.0 1.0 Ur Random Creatinine U Random Total Protein Protein/Creatinin Ratio Urine Opiates Screen Ur Methadone, Qual Urine Fentanyl Screen Urine Barbiturates Ur Phencyclidine (PCP) U Amphetamin/Meth Scrn MDMA (Ecstasy) Screen U Benzodiazepines Scrn Ur Cocaine Metabolite U Marijuana (THC) Screen RPR Resp to Therapy NON-REACTIVE Blood Type Cancelled Antibody Screen Cancelled Screen 02/02/24 02/03/24 02/03/24 07:06 06:58 07:09 WBC 7.94 RBC 2.78 L Hgb 8.3 L 8.4 L Hct 24.9 L 25.2 L MCV 89.6 MCH 29.9 MCHC 33.3 RDW Std Deviation 42.0 RDW Coeff of Rosa Isela 12.8 Plt Count 135 MPV 11.2 Immature Gran % (Auto) 0.5 Neut % (Auto) 75.4 Lymph % (Auto) 17.1 Mcleod % (Auto) 6.3 Eos % (Auto) 0.3 Baso % (Auto) 0.4 Neut # (Auto) 5.99 Lymph # (Auto) 1.36 Mcleod # (Auto) 0.50 Eos # (Auto) 0.02 Baso # (Auto) 0.03 Immature Gran # (Auto) 0.04 Sodium Potassium Chloride Carbon Dioxide Anion Gap BUN Creatinine Est Cr Clr Drug Dosing eGFR BUN/Creatinine Ratio Glucose Uric Acid Calcium Magnesium Magnesium (Sulf Ther) Total Bilirubin Direct Bilirubin AST ALT Alkaline Phosphatase Lactate Dehydrogenase Total Protein Albumin Globulin Albumin/Globulin Ratio Ur Random Creatinine U Random Total Protein Protein/Creatinin Ratio Urine Opiates Screen Ur Methadone, Qual Urine Fentanyl Screen Urine Barbiturates Ur Phencyclidine (PCP) U Amphetamin/Meth Scrn MDMA (Ecstasy) Screen U Benzodiazepines Scrn Ur Cocaine Metabolite U Marijuana (THC) Screen RPR Resp to Therapy Blood Type O Negative Antibody Screen Cancelled Screen Negative
[2024-02-04 12:24] VITALS: BP 152/96; PULSE 87
[2024-02-04] MEDS ORDERED: traMADol HCL 50 MG TABLET PO PRN (18:00)
== END 2024-02-04 14:15 | disposition home or self-care (01) | DRG 788 ==
LOC: OPB 22:26 → 4S1 22:28 → 4E2 02-02 21:16